=== PATIENT | female | born 1945 | race Caucasian/White ===

== ENCOUNTER 2018-04-13 01:19 | Inpatient (IN) | payer MEDICARE, OTHER ==
[2018-04-13] VITALS (17 sets, daily range): BP systolic 76–123; BP diastolic 49–78
[~2018-04-13] VITALS: Ht 165.1 cm; Wt 63.6 kg
[~2018-04-13 01:19] MED LIST: AMIT-189 PO; FENT-91 TD; GABA600T2 PO; HYDR-565 PO; LACT1CAP26 PO; LOSA1TAB39 PO; METO50TA17 PO; OMEP40CA37 PO; PARO20TA6 PO; RISP2TAB97 PO
[2018-04-13] MEDS ORDERED: piperacillin/tazo 3.375gm/50ml 50 ML IV ONE (01:25)
[2018-04-13] MEDS ORDERED: vancomycin/NS 1 GM ADD-VANTAGE 250 ML IV ONE (01:25)
[2018-04-13] MEDS ORDERED: normal saline 1000ML IV soln IV ONE (01:25)
[2018-04-13 01:41] LABS: ABG BASE EXCESS -13.3 mmol/L (-2.0-3.0); ABG HCO3 11.4 mmol/L (22.0-26.0); ABG OXYGEN SATURATION 96.6 % (95-98); ABG PCO2 (T) 24.1 mmHg (32.0-45.0); ABG PH (T) 7.296 (7.350-7.450); FCOHb 0.4 % (0.5-1.5); FLOW 4 L/min; FMetHb 0.3 % (0.3-1.12); FO2Hb 95.9 % (94-100); PATIENT TEMPERATURE 37.5; TOTAL HEMOGLOBIN 10.4 G/dl (12.0-16.0)
[2018-04-13 02:14] LABS: INR 1.3 INR; PARTIAL THROMBOPLASTIN TIME 38 SECONDS (22-32); PROTHROMBIN TIME 13.4 SECONDS (9.0-12.0)
[2018-04-13] MEDS ORDERED: morphine 4 MG/ML inj SYRINge IV ONE (02:15)
[2018-04-13] MEDS ORDERED: ondansetron/PF 4mg/2ml inj IV ONE (02:15)
[2018-04-13 02:17] LABS: ALANINE AMINOTRANSFERASE 8 U/L (12-78); ALBUMIN 1.7 G/DL (3.4-5.0); ALBUMIN/GLOBULIN RATIO 0.4 (1.1-1.5); ALKALINE PHOSPHATASE 73 IU/L (46-116); ANION GAP 13 (8-16); ASPARTATE AMINO TRANSFERASE 10 U/L (10-37); BILIRUBIN,TOTAL 0.1 MG/DL (0.1-1.0); BLOOD UREA NITROGEN 43 MG/DL (7-18); BUN/CREATININE RATIO 23.8 (6.6-38.0); CALCIUM 7.7 MG/DL (8.5-10.1); CHLORIDE 108 MMOL/L (99-107); CREATININE 1.81 MG/DL (0.40-0.90); GLUCOSE 105 MG/DL (70-104); MAGNESIUM 1.6 MG/DL (1.5-2.4); POTASSIUM 3.5 MMOL/L (3.5-5.1); SODIUM 136 MMOL/L (135-145); TOTAL PROTEIN 5.8 G/DL (6.4-8.2); eGFR 28 ML/MIN
[2018-04-13 02:18] LABS: BASOPHILS % (AUTO) 0 % (0-1); EOSINOPHILS % (AUTO) 0.2 % (0-6); HEMOGLOBIN 11.1 g/dl (12.0-16.0); LYMPHOCYTES # (AUTO) 0.9 X10'3 (1.1-4.8); LYMPHOCYTES % (AUTO) 8.1 % (21-51); MEAN CORPUSCULAR HEMOGLOBIN 29.9 PG (27.0-31.0); MEAN CORPUSCULAR HGB CONC 33.5 % (33.0-36.5); MEAN PLATELET VOLUME 6.5 FL (7.4-10.4); MONOCYTES # (AUTO) 0.3 X10'3 (0-0.9); MONOCYTES % (AUTO) 2.8 % (2-12); NEUTROPHILS # (AUTO) 9.3 X10'3 (1.8-7.7); NEUTROPHILS % (AUTO) 88.9 % (42-75); PLATELET COUNT 454 X10'3 (140-440); RED CELL DISTRIBUTION WIDTH 14.1 % (11.5-14.5); WHITE BLOOD COUNT 10.5 X10'3 (4.5-11.0)
[2018-04-13 02:23] LABS: TOTAL CARBON DIOXIDE 14.6 MMOL/L (24-32)
[2018-04-13 02:48] LABS: TOTAL CELLS COUNTED 100
[2018-04-13 02:50] LABS: PLATELET ESTIMATE NORMAL
[2018-04-13] MEDS ORDERED: etomidate 2mg/ml inj. IV ONE (02:55)
[2018-04-13] MEDS ORDERED: succinylcholine 20mg/ml inj IV ONE ×2 (02:55)
[2018-04-13] MEDS: FENTANYL-0.9 % NACL/PF 100 ML IV PRN ×3 (03:14→17:54)
[2018-04-13] MEDS ORDERED: VECuronium br 10mg inj. IV ONE ×2 (03:50→03:52)
[2018-04-13] MEDS ORDERED: midazolam 100mg in NS 100ml 100 ML IV PRN (03:50)
[2018-04-13] MEDS ORDERED: MIDAZolam 5mg/ml 2ml vial IV ONE ×2 (03:50)
[2018-04-13] MEDS ORDERED: normal saline 1000ML IV soln IVB ONE (04:20)
[2018-04-13] MEDS: NORepinephrine 8mg/ 250ml NS 250 ML IV SCH ×2 (04:25→17:45)
[2018-04-13] MEDS: midazolam 100mg in NS 100ml 100 ML IV PRN (04:35)
[2018-04-13 04:51] LABS: ABG BASE EXCESS -16.2 mmol/L (-2.0-3.0); ABG HCO3 10.3 mmol/L (22.0-26.0); ABG OXYGEN SATURATION 97.9 % (95-98); ABG PH (T) 7.211 (7.350-7.450); ABG PO2 (T) 168.7 mmHg (83-108); FCOHb 0.6 % (0.5-1.5); FMetHb 0.3 % (0.3-1.12); MINUTE VOLUME 7 L/min; PATIENT TEMPERATURE 36.5; PEEP 5 cm H2O; RESPIRATORY RATE 16 b/min; RESPIRATORY RATE (OBSERVED) 16 b/min; TIDAL VOLUME 400 mL
[2018-04-13 05:04] LABS: CLARITY,URINE CLEAR (Clear); COLOR,URINE YELLOW (Yellow); GLUCOSE, URINE NEGATIVE (Neg); KETONES,URINE NEGATIVE (Neg); LEUKOCYTE ESTERASE ,URINE NEGATIVE (Neg); NITRITES, URINE NEGATIVE (Neg); OCCULT BLOOD,URINE NEGATIVE (Neg); PROTEIN,URINE 30 mg/dl (Neg); UROBILINOGEN,URINE 0.2 E.U/dL (0.2-1.0)
[2018-04-13 05:05] LABS: UA COLLECTION TYPE FOLEY CATH
[2018-04-13 05:14] LABS: BACTERIA,URINE NONE SEEN /HPF (Neg); MUCUS STRANDS NONE SEEN /LPF (Neg); RBC,URINE NONE SEEN /HPF (0-2); SQUAMOUS EPITHELIAL CELL,UR NONE SEEN /LPF (FEW); WBC,URINE NONE SEEN /HPF (0-4)
[2018-04-13] MEDS ORDERED: K, MAG and/or Phos replacement - Verify level? MC PRN (05:40)
[2018-04-13] MEDS ORDERED: morphine 4 MG/ML inj SYRINge IV PRN ×2 (05:40)
[2018-04-13] MEDS ORDERED: acetaminophen 650mg rectal suppository RC PRN (05:40)
[2018-04-13] MEDS ORDERED: morphine/NS 5 mg/ml CADD 50 ML IV SCH (05:56)
[2018-04-13] MEDS ORDERED: etomidate 2mg/ml inj. ONE (06:00)
[2018-04-13] MEDS ORDERED: NORepinephrine bitartrate 8 MG in NS 250 ML BAG (32 mcg/ml) IV ONE (06:00)
[2018-04-13] MEDS ORDERED: FENTANYL-0.9 % NACL/PF 100 ML IV PRN (06:45)
[2018-04-13] MEDS: normal saline 1000ml 1,000 ML IV SCH ×3 (07:56→19:28)
[2018-04-13] MEDS ORDERED: HYDR-565 PO (09:37)
[2018-04-13] MEDS ORDERED: ONDA4TAB12 PO (09:37)
[2018-04-13] MEDS ORDERED: METO50TA17 PO (09:37)
[2018-04-13] MEDS ORDERED: LOSA1TAB39 PO (09:37)
[2018-04-13] MEDS: piperacillin/tazo 3.375gm/50ml 50 ML IV SCH ×3 (10:36→20:00)
[2018-04-13] MEDS: heparin, porcine 5000 units/ml vial SQ SCH ×2 (10:37→20:00)
[2018-04-13 19:15] LABS: PO2 MIXED VENOUS (TEMP COR) 54.4 mmHg (35-46)
[2018-04-13] MEDS: lactobacillus rhamnosus 10,000 MMU CELLS/CAPSULE PO SCH (20:00)
[2018-04-14] VITALS (24 sets, daily range): BP systolic 62–156; BP diastolic 41–92
[2018-04-14] MEDS ORDERED: vancomycin/NS 1 GM ADD-VANTAGE 250 ML IV SCH (02:00)
[2018-04-14] MEDS: piperacillin/tazo 3.375gm/50ml 50 ML IV SCH ×2 (02:04→07:15)
[2018-04-14] MEDS: normal saline 1000ml 1,000 ML IV SCH ×2 (02:05→08:48)
[2018-04-14 02:49] LABS: BASOPHILS % (AUTO) 0.1 % (0-1); EOSINOPHILS # (AUTO) 0.2 X10'3 (0-0.9); HEMATOCRIT 29.5 % (35.0-45.0); HEMOGLOBIN 9.9 g/dl (12.0-16.0); LYMPHOCYTES % (AUTO) 6.7 % (21-51); MEAN CORPUSCULAR HEMOGLOBIN 29.8 PG (27.0-31.0); MEAN CORPUSCULAR HGB CONC 33.7 % (33.0-36.5); MEAN CORPUSCULAR VOLUME 88.5 FL (78-98); MEAN PLATELET VOLUME 6.3 FL (7.4-10.4); MONOCYTES # (AUTO) 0.4 X10'3 (0-0.9); MONOCYTES % (AUTO) 2.8 % (2-12); NEUTROPHILS # (AUTO) 13.5 X10'3 (1.8-7.7); NEUTROPHILS % (AUTO) 89.4 % (42-75); PLATELET COUNT 349 X10'3 (140-440); RED BLOOD COUNT 3.33 X10'6 (4.20-5.60); RED CELL DISTRIBUTION WIDTH 14.5 % (11.5-14.5); WHITE BLOOD COUNT 15.1 X10'3 (4.5-11.0)
[2018-04-14 03:01] LABS: INR 1.4 INR; PARTIAL THROMBOPLASTIN TIME 42 SECONDS (22-32); PROTHROMBIN TIME 13.9 SECONDS (9.0-12.0)
[2018-04-14 03:38] LABS: ALBUMIN 1.2 G/DL (3.4-5.0); ALBUMIN/GLOBULIN RATIO 0.4 (1.1-1.5); ANION GAP 17 (8-16); ASPARTATE AMINO TRANSFERASE 7 U/L (10-37); BILIRUBIN,TOTAL 0.2 MG/DL (0.1-1.0); BLOOD UREA NITROGEN 27 MG/DL (7-18); BUN/CREATININE RATIO 21.6 (6.6-38.0); CALCIUM 7.2 MG/DL (8.5-10.1); CREATININE 1.25 MG/DL (0.40-0.90); GLUCOSE 87 MG/DL (70-104); MAGNESIUM 1.2 MG/DL (1.5-2.4); PHOSPHORUS 2.9 MG/DL (2.3-4.5); TOTAL PROTEIN 4.6 G/DL (6.4-8.2); eGFR 42 ML/MIN
[2018-04-14 03:43] LABS: SODIUM 145 MMOL/L (135-145)
[2018-04-14 03:44] LABS: CHLORIDE 118 MMOL/L (99-107); POTASSIUM 2.7 MMOL/L (3.5-5.1)
[2018-04-14 03:45] LABS: ALKALINE PHOSPHATASE 64 IU/L (46-116)
[2018-04-14 03:52] LABS: ALANINE AMINOTRANSFERASE < 6 U/L (12-78)
[2018-04-14] MEDS ORDERED: magnesium 2GM in 50ml NS 50 ML IV PRN (04:00)
[2018-04-14] MEDS ORDERED: magnesium 4gm in 100ml NS 100 ML IV PRN (04:00)
[2018-04-14] MEDS ORDERED: potassium Cl 40MEQ/250ML bag 250 ML IV ONE (04:03)
[2018-04-14] MEDS: potassium Cl 40MEQ/250ML bag 250 ML IV PRN (04:12)
[2018-04-14 05:25] LABS: ABG HCO3 9.1 mmol/L (22.0-26.0); ABG OXYGEN SATURATION 97.7 % (95-98); ABG PH (T) 7.273 (7.350-7.450); ABG PO2 (T) 131.3 mmHg (83-108); FCOHb 0.3 % (0.5-1.5); FMetHb 0.3 % (0.3-1.12); FO2Hb 97.1 % (94-100); MINUTE VOLUME 8 L/min; PATIENT TEMPERATURE 36.5; PEEP 5 cm H2O; RESPIRATORY RATE 16 b/min; RESPIRATORY RATE (OBSERVED) 22 b/min; TIDAL VOLUME 400 mL; TOTAL HEMOGLOBIN 10.4 G/dl (12.0-16.0)
[2018-04-14 05:30] LABS: PLATELET ESTIMATE NORMAL; TOTAL CELLS COUNTED 100; TOXIC GRANULATION 1+
[2018-04-14] MEDS: mineral oil/petrolatum ophthal oint EACHEYE SCH ×3 (07:15→20:41)
[2018-04-14] MEDS: lactobacillus rhamnosus 10,000 MMU CELLS/CAPSULE PO SCH ×2 (07:15→20:41)
[2018-04-14] MEDS: heparin, porcine 5000 units/ml vial SQ SCH ×2 (07:15→20:41)
[2018-04-14] MEDS: potassium Cl 40MEQ/250ML bag 250 ML IV SCH (07:16)
[2018-04-14] MEDS: NORepinephrine 8mg/ 250ml NS 250 ML IV SCH ×2 (07:34→16:02)
[2018-04-14 08:50] LABS: GIARDIA LAMBLIA AG NEGATIVE (Neg)
[2018-04-14 08:51] LABS: CRYPTOSPORIDIUM AG NEGATIVE (Neg)
[2018-04-14 10:20] LABS: C DIFF SPECIMEN=DIARRHEA? ACCEPTABLE; C DIFFICILE TOXINS A&B NEGATIVE (Neg)
[2018-04-14 10:21] LABS: C DIFF ANTIGEN POSITIVE (NEGATIVE)
[2018-04-14 10:25] LABS: C DIFF TOXIN (LAMP) POSITIVE (NEG)
[2018-04-14] MEDS: midazolam 100mg in NS 100ml 100 ML IV PRN (12:30)
[2018-04-14] MEDS: FENTANYL-0.9 % NACL/PF 100 ML IV PRN (12:31)
[2018-04-14] MEDS: sodium bicarbonate (8.4%) inj. 150 MEQ in dextrose 5%-water 1,000 ML IV SCH ×2 (12:31→20:42)
[2018-04-14 12:41] LABS: POTASSIUM 3.8 MMOL/L (3.5-5.1)
[2018-04-14 14:25] LABS: PREALBUMIN 5.6 MG/DL (19-36)
[2018-04-14] MEDS ORDERED: vancomycin 125mg/5ml ORAL solution 5ml UD bottle PO ONE (14:30)
[2018-04-14] MEDS ORDERED: GABA600T2 (16:20)
[2018-04-14] MEDS ORDERED: QUET25TA34 PO (16:20)
[2018-04-14] MEDS: vancomycin 125mg/5ml ORAL solution 5ml UD bottle PO SCH (20:58)
[2018-04-15] VITALS (24 sets, daily range): BP systolic 82–134; BP diastolic 56–95
[2018-04-15] MEDS: mineral oil/petrolatum ophthal oint EACHEYE SCH ×4 (02:50→22:35)
[2018-04-15] MEDS: vancomycin 125mg/5ml ORAL solution 5ml UD bottle PO SCH ×4 (02:50→22:35)
[2018-04-15 03:25] LABS: ABG BASE EXCESS -6.3 mmol/L (-2.0-3.0); ABG HCO3 16.1 mmol/L (22.0-26.0); ABG OXYGEN SATURATION 96.9 % (95-98); ABG PCO2 (T) 22.8 mmHg (32.0-45.0); ABG PH (T) 7.467 (7.350-7.450); ABG PO2 (T) 105.3 mmHg (83-108); ALLEN'S TEST Positive; FCOHb 0.3 % (0.5-1.5); FMetHb 0.3 % (0.3-1.12); FO2Hb 96.3 % (94-100); MINUTE VOLUME 10 L/min; PATIENT TEMPERATURE 36.9; PEEP 5 cm H2O; RESPIRATORY RATE 20 b/min; RESPIRATORY RATE (OBSERVED) 22 b/min; TIDAL VOLUME 400 mL; TOTAL HEMOGLOBIN 9.6 G/dl (12.0-16.0)
[2018-04-15 03:26] LABS: BASOPHILS % (AUTO) 0.2 % (0-1); EOSINOPHILS # (AUTO) 0.3 X10'3 (0-0.9); EOSINOPHILS % (AUTO) 2.5 % (0-6); HEMOGLOBIN 9.1 g/dl (12.0-16.0); LYMPHOCYTES # (AUTO) 1.5 X10'3 (1.1-4.8); LYMPHOCYTES % (AUTO) 14.1 % (21-51); MEAN CORPUSCULAR HEMOGLOBIN 29.6 PG (27.0-31.0); MEAN CORPUSCULAR HGB CONC 33.8 % (33.0-36.5); MEAN CORPUSCULAR VOLUME 87.6 FL (78-98); MEAN PLATELET VOLUME 6.5 FL (7.4-10.4); MONOCYTES # (AUTO) 0.3 X10'3 (0-0.9); MONOCYTES % (AUTO) 2.7 % (2-12); NEUTROPHILS # (AUTO) 8.8 X10'3 (1.8-7.7); NEUTROPHILS % (AUTO) 80.5 % (42-75); PLATELET COUNT 267 X10'3 (140-440); RED BLOOD COUNT 3.08 X10'6 (4.20-5.60); RED CELL DISTRIBUTION WIDTH 14.3 % (11.5-14.5); WHITE BLOOD COUNT 10.9 X10'3 (4.5-11.0)
[2018-04-15 03:32] LABS: INR 1.3 INR; PARTIAL THROMBOPLASTIN TIME 39 SECONDS (22-32); PROTHROMBIN TIME 13.5 SECONDS (9.0-12.0)
[2018-04-15 03:41] LABS: ALBUMIN/GLOBULIN RATIO 0.3 (1.1-1.5); ALKALINE PHOSPHATASE 60 IU/L (46-116); ANION GAP 11 (8-16); ASPARTATE AMINO TRANSFERASE 6 U/L (10-37); BILIRUBIN,TOTAL 0.2 MG/DL (0.1-1.0); BLOOD UREA NITROGEN 21 MG/DL (7-18); BUN/CREATININE RATIO 18.1 (6.6-38.0); CALCIUM 7.4 MG/DL (8.5-10.1); CHLORIDE 116 MMOL/L (99-107); CREATININE 1.16 MG/DL (0.40-0.90); GLUCOSE 149 MG/DL (70-104); MAGNESIUM 2.5 MG/DL (1.5-2.4); PHOSPHORUS 1.6 MG/DL (2.3-4.5); SODIUM 144 MMOL/L (135-145); TOTAL CARBON DIOXIDE 17.2 MMOL/L (24-32); TOTAL PROTEIN 4.2 G/DL (6.4-8.2); eGFR 46 ML/MIN
[2018-04-15 03:45] LABS: POTASSIUM 2.6 MMOL/L (3.5-5.1)
[2018-04-15 03:46] LABS: ALANINE AMINOTRANSFERASE < 6 U/L (12-78)
[2018-04-15] MEDS ORDERED: potassium Cl 40MEQ/250ML bag 250 ML IV ONE (03:50)
[2018-04-15 04:12] LABS: TOTAL CELLS COUNTED 100
[2018-04-15 04:13] LABS: PLATELET ESTIMATE NORMAL; TOXIC GRANULATION 2+
[2018-04-15] MEDS: sodium bicarbonate (8.4%) inj. 150 MEQ in dextrose 5%-water 1,000 ML IV SCH ×4 (04:20→21:23)
[2018-04-15] MEDS: potassium Cl 40MEQ/250ML bag 250 ML IV PRN ×3 (04:20→11:29)
[2018-04-15] MEDS ORDERED: sodium phosphate inj. 30 MMOL in dextrose 5%-water 250 ML IV PRN (05:34)
[2018-04-15] MEDS ORDERED: Neutra Phos packet PO PRN (05:35)
[2018-04-15] MEDS: FENTANYL-0.9 % NACL/PF 100 ML IV PRN ×2 (06:07→16:10)
[2018-04-15] MEDS: lactobacillus rhamnosus 10,000 MMU CELLS/CAPSULE PO SCH ×2 (07:29→22:35)
[2018-04-15] MEDS: heparin, porcine 5000 units/ml vial SQ SCH ×2 (07:30→22:35)
[2018-04-15] MEDS: NORepinephrine 8mg/ 250ml NS 250 ML IV SCH (11:35)
[2018-04-15] MEDS: sodium phosphate inj. 15 MMOL in dextrose 5%-water 150 ML IV PRN (16:10)
[2018-04-15] MEDS: midazolam 100mg in NS 100ml 100 ML IV PRN (16:11)
[2018-04-16] VITALS (24 sets, daily range): BP systolic 84–158; BP diastolic 54–88
[2018-04-16] MEDS ORDERED: acetaminophen 325mg/10.15ml oral unit dose solution PO PRN (00:50)
[2018-04-16] MEDS: FENTANYL-0.9 % NACL/PF 100 ML IV PRN ×3 (01:15→17:52)
[2018-04-16] MEDS ORDERED: VANCOMYCIN LEVEL IV ONE (01:30)
[2018-04-16] MEDS: mineral oil/petrolatum ophthal oint EACHEYE SCH ×4 (02:42→20:33)
[2018-04-16] MEDS: vancomycin 125mg/5ml ORAL solution 5ml UD bottle PO SCH ×4 (02:46→20:34)
[2018-04-16 03:03] LABS: INR 1.1 INR; PARTIAL THROMBOPLASTIN TIME 32 SECONDS (22-32); PROTHROMBIN TIME 10.9 SECONDS (9.0-12.0)
[2018-04-16 03:18] LABS: ALBUMIN/GLOBULIN RATIO 0.3 (1.1-1.5); ALKALINE PHOSPHATASE 49 IU/L (46-116); ANION GAP 5 (8-16); ASPARTATE AMINO TRANSFERASE 7 U/L (10-37); BILIRUBIN,TOTAL 0.2 MG/DL (0.1-1.0); BLOOD UREA NITROGEN 16 MG/DL (7-18); BUN/CREATININE RATIO 18.6 (6.6-38.0); CALCIUM 6.9 MG/DL (8.5-10.1); CHLORIDE 111 MMOL/L (99-107); CREATININE 0.86 MG/DL (0.40-0.90); GLUCOSE 153 MG/DL (70-104); MAGNESIUM 1.7 MG/DL (1.5-2.4); POTASSIUM 3.4 MMOL/L (3.5-5.1); SODIUM 142 MMOL/L (135-145); TOTAL CARBON DIOXIDE 25.6 MMOL/L (24-32); TOTAL PROTEIN 4.2 G/DL (6.4-8.2); eGFR 65 ML/MIN
[2018-04-16 03:25] LABS: ALANINE AMINOTRANSFERASE < 6 U/L (12-78)
[2018-04-16 03:28] LABS: PHOSPHORUS 1.1 MG/DL (2.3-4.5)
[2018-04-16 03:43] LABS: BASOPHILS % (AUTO) 0.3 % (0-1); EOSINOPHILS # (AUTO) 0.2 X10'3 (0-0.9); EOSINOPHILS % (AUTO) 1.8 % (0-6); HEMATOCRIT 25.3 % (35.0-45.0); HEMOGLOBIN 8.6 g/dl (12.0-16.0); LYMPHOCYTES # (AUTO) 2.4 X10'3 (1.1-4.8); LYMPHOCYTES % (AUTO) 22.9 % (21-51); MEAN CORPUSCULAR HEMOGLOBIN 29.6 PG (27.0-31.0); MEAN CORPUSCULAR VOLUME 87.1 FL (78-98); MEAN PLATELET VOLUME 7.2 FL (7.4-10.4); MONOCYTES # (AUTO) 0.6 X10'3 (0-0.9); NEUTROPHILS # (AUTO) 7.3 X10'3 (1.8-7.7); PLATELET COUNT 240 X10'3 (140-440); RED BLOOD COUNT 2.91 X10'6 (4.20-5.60); RED CELL DISTRIBUTION WIDTH 14.4 % (11.5-14.5); WHITE BLOOD COUNT 10.5 X10'3 (4.5-11.0)
[2018-04-16 03:51] LABS: ABG BASE EXCESS 1.9 mmol/L (-2.0-3.0); ABG HCO3 24.8 mmol/L (22.0-26.0); ABG PCO2 (T) 32.9 mmHg (32.0-45.0); ABG PH (T) 7.496 (7.350-7.450); ABG PO2 (T) 83.9 mmHg (83-108); ALLEN'S TEST Positive; FCOHb 0.5 % (0.5-1.5); FMetHb 0.3 % (0.3-1.12); FO2Hb 95.2 % (94-100); MINUTE VOLUME 7 L/min; PATIENT TEMPERATURE 37.3; PEEP 5 cm H2O; RESPIRATORY RATE 16 b/min; RESPIRATORY RATE (OBSERVED) 16 b/min; TIDAL VOLUME 400 mL; TOTAL HEMOGLOBIN 10.1 G/dl (12.0-16.0)
[2018-04-16] MEDS ORDERED: SODIUM PHOSPHATE IN D5W 250 ML IV ONE (04:14)
[2018-04-16 07:21] LABS: PLATELET ESTIMATE NORMAL; POLYCHROMASIA 1+; TOTAL CELLS COUNTED 100
[2018-04-16 07:22] LABS: TARGET CELLS 1+; TOXIC GRANULATION 2+
[2018-04-16] MEDS: heparin, porcine 5000 units/ml vial SQ SCH ×2 (08:43→20:34)
[2018-04-16] MEDS: lactobacillus rhamnosus 10,000 MMU CELLS/CAPSULE PO SCH ×2 (08:43→20:33)
[2018-04-16] MEDS: potassium Cl 40MEQ/250ML bag 250 ML IV SCH (08:44)
[2018-04-16] MEDS: sodium bicarbonate (8.4%) inj. 150 MEQ in dextrose 5%-water 1,000 ML IV SCH ×2 (08:45→16:46)
[2018-04-16] MEDS: NORepinephrine 8mg/ 250ml NS 250 ML IV SCH (11:59)
[2018-04-17] VITALS (23 sets, daily range): BP systolic 79–143; BP diastolic 52–101
[2018-04-17] MEDS: sodium bicarbonate (8.4%) inj. 150 MEQ in dextrose 5%-water 1,000 ML IV SCH (00:26)
[2018-04-17 03:06] LABS: ABG BASE EXCESS 2.1 mmol/L (-2.0-3.0); ABG HCO3 24.3 mmol/L (22.0-26.0); ABG PCO2 (T) 29.4 mmHg (32.0-45.0); ABG PH (T) 7.536 (7.350-7.450); ABG PO2 (T) 80.2 mmHg (83-108); ALLEN'S TEST Positive; FCOHb 0.6 % (0.5-1.5); FMetHb 0.3 % (0.3-1.12); FO2Hb 95.1 % (94-100); MINUTE VOLUME 8 L/min; PATIENT TEMPERATURE 37.4; PEEP 5 cm H2O; RESPIRATORY RATE 12 b/min; RESPIRATORY RATE (OBSERVED) 17 b/min; TIDAL VOLUME 400 mL; TOTAL HEMOGLOBIN 9.4 G/dl (12.0-16.0)
[2018-04-17 03:19] LABS: BASOPHILS % (AUTO) 0.2 % (0-1); EOSINOPHILS # (AUTO) 0.3 X10'3 (0-0.9); EOSINOPHILS % (AUTO) 2.5 % (0-6); HEMATOCRIT 26.2 % (35.0-45.0); HEMOGLOBIN 8.8 g/dl (12.0-16.0); LYMPHOCYTES # (AUTO) 2.8 X10'3 (1.1-4.8); LYMPHOCYTES % (AUTO) 24.6 % (21-51); MEAN CORPUSCULAR HEMOGLOBIN 29.3 PG (27.0-31.0); MEAN CORPUSCULAR HGB CONC 33.7 % (33.0-36.5); MEAN CORPUSCULAR VOLUME 86.9 FL (78-98); MEAN PLATELET VOLUME 6.8 FL (7.4-10.4); MONOCYTES # (AUTO) 0.5 X10'3 (0-0.9); MONOCYTES % (AUTO) 4.7 % (2-12); NEUTROPHILS # (AUTO) 7.8 X10'3 (1.8-7.7); PLATELET COUNT 242 X10'3 (140-440); RED BLOOD COUNT 3.01 X10'6 (4.20-5.60); RED CELL DISTRIBUTION WIDTH 14.8 % (11.5-14.5); WHITE BLOOD COUNT 11.5 X10'3 (4.5-11.0)
[2018-04-17] MEDS: midazolam 100mg in NS 100ml 100 ML IV PRN (03:19)
[2018-04-17] MEDS: mineral oil/petrolatum ophthal oint EACHEYE SCH ×4 (03:19→20:00)
[2018-04-17] MEDS: vancomycin 125mg/5ml ORAL solution 5ml UD bottle PO SCH ×4 (03:19→20:00)
[2018-04-17 03:31] LABS: PARTIAL THROMBOPLASTIN TIME 30 SECONDS (22-32); PROTHROMBIN TIME 10.3 SECONDS (9.0-12.0)
[2018-04-17 03:33] LABS: ALBUMIN/GLOBULIN RATIO 0.3 (1.1-1.5); ALKALINE PHOSPHATASE 52 IU/L (46-116); ANION GAP 4 (8-16); ASPARTATE AMINO TRANSFERASE 7 U/L (10-37); BILIRUBIN,TOTAL 0.2 MG/DL (0.1-1.0); BLOOD UREA NITROGEN 15 MG/DL (7-18); BUN/CREATININE RATIO 21.4 (6.6-38.0); CALCIUM 7.4 MG/DL (8.5-10.1); CHLORIDE 109 MMOL/L (99-107); GLUCOSE 86 MG/DL (70-104); MAGNESIUM 1.5 MG/DL (1.5-2.4); PHOSPHORUS 2.1 MG/DL (2.3-4.5); POTASSIUM 3.9 MMOL/L (3.5-5.1); SODIUM 139 MMOL/L (135-145); TOTAL CARBON DIOXIDE 26.4 MMOL/L (24-32); TOTAL PROTEIN 4.7 G/DL (6.4-8.2); eGFR 82 ML/MIN
[2018-04-17 03:34] LABS: ALANINE AMINOTRANSFERASE < 6 U/L (12-78)
[2018-04-17] MEDS ORDERED: sodium phosphate in D5W IVPB 250 ML IV ONE (04:46)
[2018-04-17] MEDS: sodium phosphate inj. 15 MMOL in dextrose 5%-water 150 ML IV PRN (05:35)
[2018-04-17] MEDS: FENTANYL-0.9 % NACL/PF 100 ML IV PRN ×3 (07:24→20:32)
[2018-04-17] MEDS: heparin, porcine 5000 units/ml vial SQ SCH ×2 (07:25→20:00)
[2018-04-17] MEDS: lactobacillus rhamnosus 10,000 MMU CELLS/CAPSULE PO SCH ×2 (07:25→20:00)
[2018-04-17] MEDS ORDERED: dextrose 50%-water 50ml dispensing syringe IV ONE (07:33)
[2018-04-17] MEDS ORDERED: dextrose 50%-water 50ml dispensing syringe IV PRN ×2 (07:50)
[2018-04-17] MEDS ORDERED: insulin Lispro (HumaLOG) vial - multi-dose SQ SCH (07:50)
[2018-04-17] MEDS ORDERED: MESSAGE TO PHARMACY PO ONE (07:50)
[2018-04-17] MEDS ORDERED: dextrose ORAL solution 15 GM/59 ML bottle PO PRN ×2 (07:50)
[2018-04-17] MEDS ORDERED: glucagon, human recombinant 1mg kit SUBCUT PRN (07:50)
[2018-04-17] MEDS ORDERED: dextrose 5%-1/4 normal saline 1,000 ML IV SCH (15:25)
[2018-04-17] MEDS ORDERED: acetaminophen 325mg/10.15ml oral unit dose solution PO PRN (15:25)
[2018-04-17] MEDS: dextrose 5%-1/2 normal saline 1,000 ML IV SCH (16:56)
[2018-04-17] MEDS ORDERED: normal saline 500ml IV soln 1,000 ML IV ONE (18:00)
[2018-04-17] MEDS: insulin glargine (Lantus) pen - multi-dose SQ SCH (21:00)
[2018-04-18] VITALS (23 sets, daily range): BP systolic 86–145; BP diastolic 49–89
[2018-04-18] MEDS: FENTANYL-0.9 % NACL/PF 100 ML IV PRN ×2 (01:35→10:56)
[2018-04-18] MEDS: vancomycin 125mg/5ml ORAL solution 5ml UD bottle PO SCH ×4 (01:35→19:56)
[2018-04-18] MEDS: midazolam 100mg in NS 100ml 100 ML IV PRN (01:36)
[2018-04-18] MEDS: NORepinephrine 8mg/ 250ml NS 250 ML IV SCH (01:36)
[2018-04-18] MEDS: mineral oil/petrolatum ophthal oint EACHEYE SCH ×4 (01:37→19:59)
[2018-04-18 02:36] LABS: BASOPHILS % (AUTO) 0.5 % (0-1); EOSINOPHILS # (AUTO) 0.3 X10'3 (0-0.9); EOSINOPHILS % (AUTO) 2.6 % (0-6); HEMATOCRIT 23.6 % (35.0-45.0); LYMPHOCYTES # (AUTO) 3.4 X10'3 (1.1-4.8); MEAN CORPUSCULAR HEMOGLOBIN 29.6 PG (27.0-31.0); MEAN CORPUSCULAR HGB CONC 33.9 % (33.0-36.5); MEAN CORPUSCULAR VOLUME 87.6 FL (78-98); MEAN PLATELET VOLUME 7.5 FL (7.4-10.4); MONOCYTES # (AUTO) 0.8 X10'3 (0-0.9); MONOCYTES % (AUTO) 7.6 % (2-12); NEUTROPHILS # (AUTO) 5.5 X10'3 (1.8-7.7); NEUTROPHILS % (AUTO) 55.3 % (42-75); PLATELET COUNT 276 X10'3 (140-440); RED BLOOD COUNT 2.69 X10'6 (4.20-5.60); RED CELL DISTRIBUTION WIDTH 14.5 % (11.5-14.5)
[2018-04-18 02:49] LABS: PARTIAL THROMBOPLASTIN TIME 31 SECONDS (22-32); PROTHROMBIN TIME 10.1 SECONDS (9.0-12.0)
[2018-04-18 02:54] LABS: ALANINE AMINOTRANSFERASE 7 U/L (12-78); ALBUMIN/GLOBULIN RATIO 0.3 (1.1-1.5); ALKALINE PHOSPHATASE 52 IU/L (46-116); ANION GAP 6 (8-16); ASPARTATE AMINO TRANSFERASE 9 U/L (10-37); BILIRUBIN,TOTAL 0.1 MG/DL (0.1-1.0); BLOOD UREA NITROGEN 14 MG/DL (7-18); BUN/CREATININE RATIO 19.7 (6.6-38.0); CALCIUM 7.5 MG/DL (8.5-10.1); CHLORIDE 108 MMOL/L (99-107); CREATININE 0.71 MG/DL (0.40-0.90); GLUCOSE 156 MG/DL (70-104); MAGNESIUM 1.3 MG/DL (1.5-2.4); PHOSPHORUS 2.4 MG/DL (2.3-4.5); POTASSIUM 3.8 MMOL/L (3.5-5.1); SODIUM 141 MMOL/L (135-145); TOTAL CARBON DIOXIDE 26.9 MMOL/L (24-32); TOTAL PROTEIN 4.7 G/DL (6.4-8.2); eGFR 81 ML/MIN
[2018-04-18 03:26] LABS: ABG BASE EXCESS 1.2 mmol/L (-2.0-3.0); ABG HCO3 23.7 mmol/L (22.0-26.0); ABG OXYGEN SATURATION 96.9 % (95-98); ABG PCO2 (T) 28.8 mmHg (32.0-45.0); ABG PH (T) 7.531 (7.350-7.450); ABG PO2 (T) 93.8 mmHg (83-108); ALLEN'S TEST Positive; FCOHb 0.7 % (0.5-1.5); FMetHb 0.3 % (0.3-1.12); FO2Hb 95.9 % (94-100); MINUTE VOLUME 7 L/min; PATIENT TEMPERATURE 36.4; PEEP 5 cm H2O; RESPIRATORY RATE 12 b/min; RESPIRATORY RATE (OBSERVED) 20 b/min; TIDAL VOLUME 400 mL; TOTAL HEMOGLOBIN 8.2 G/dl (12.0-16.0)
[2018-04-18 03:40] LABS: PREALBUMIN 10.1 MG/DL (19-36)
[2018-04-18 06:39] LABS: HEMOGLOBIN A1C 5.2 % (4.5-6.2)
[2018-04-18] MEDS: dextrose 5%-1/2 normal saline 1,000 ML IV SCH ×2 (07:50→19:56)
[2018-04-18] MEDS: heparin, porcine 5000 units/ml vial SQ SCH ×2 (07:57→19:56)
[2018-04-18] MEDS: lactobacillus rhamnosus 10,000 MMU CELLS/CAPSULE PO SCH ×2 (07:57→19:56)
[2018-04-18] MEDS ORDERED: magnesium Cl slow-release 64mg tablet PO PRN (09:35)
[2018-04-18] MEDS ORDERED: potassium Cl 20 mEq SR tablet PO PRN ×2 (09:35)
[2018-04-18] MEDS: dexmedetomidin/NS 400mcg/100ml 100 ML IV SCH ×2 (10:24→23:59)
[2018-04-18] MEDS: gabapentin 400mg capsule PO SCH ×3 (12:07→23:59)
[2018-04-18] MEDS ORDERED: magnesium 2GM in 50ml NS 50 ML IV PRN (15:15)
[2018-04-18] MEDS ORDERED: magnesium 4gm in 100ml NS 100 ML IV PRN (15:15)
[2018-04-18] MEDS: insulin glargine (Lantus) pen - multi-dose SQ SCH (21:00)
[2018-04-19] VITALS (26 sets, daily range): BP systolic 81–189; BP diastolic 51–108
[2018-04-19] MEDS: FENTANYL-0.9 % NACL/PF 100 ML IV PRN ×3 (00:14→20:29)
[2018-04-19] MEDS: vancomycin 125mg/5ml ORAL solution 5ml UD bottle PO SCH ×4 (02:12→19:10)
[2018-04-19] MEDS: mineral oil/petrolatum ophthal oint EACHEYE SCH ×4 (02:12→19:09)
[2018-04-19 02:41] LABS: BASOPHILS % (AUTO) 0.4 % (0-1); EOSINOPHILS # (AUTO) 0.2 X10'3 (0-0.9); EOSINOPHILS % (AUTO) 2.2 % (0-6); HEMATOCRIT 22.9 % (35.0-45.0); HEMOGLOBIN 7.7 g/dl (12.0-16.0); LYMPHOCYTES # (AUTO) 2.9 X10'3 (1.1-4.8); LYMPHOCYTES % (AUTO) 31.6 % (21-51); MEAN CORPUSCULAR HEMOGLOBIN 29.5 PG (27.0-31.0); MEAN CORPUSCULAR HGB CONC 33.3 % (33.0-36.5); MEAN CORPUSCULAR VOLUME 88.6 FL (78-98); MEAN PLATELET VOLUME 7.2 FL (7.4-10.4); MONOCYTES # (AUTO) 0.6 X10'3 (0-0.9); MONOCYTES % (AUTO) 6.1 % (2-12); NEUTROPHILS # (AUTO) 5.4 X10'3 (1.8-7.7); NEUTROPHILS % (AUTO) 59.7 % (42-75); PLATELET COUNT 325 X10'3 (140-440); RED BLOOD COUNT 2.59 X10'6 (4.20-5.60); RED CELL DISTRIBUTION WIDTH 14.7 % (11.5-14.5); WHITE BLOOD COUNT 9.1 X10'3 (4.5-11.0)
[2018-04-19 02:51] LABS: PARTIAL THROMBOPLASTIN TIME 29 SECONDS (22-32); PROTHROMBIN TIME 9.9 SECONDS (9.0-12.0)
[2018-04-19 02:57] LABS: ALANINE AMINOTRANSFERASE 9 U/L (12-78); ALBUMIN 1.1 G/DL (3.4-5.0); ALBUMIN/GLOBULIN RATIO 0.3 (1.1-1.5); ALKALINE PHOSPHATASE 57 IU/L (46-116); ANION GAP 7 (8-16); ASPARTATE AMINO TRANSFERASE 14 U/L (10-37); BILIRUBIN,TOTAL 0.1 MG/DL (0.1-1.0); BLOOD UREA NITROGEN 15 MG/DL (7-18); BUN/CREATININE RATIO 20.3 (6.6-38.0); CALCIUM 7.8 MG/DL (8.5-10.1); CHLORIDE 110 MMOL/L (99-107); CREATININE 0.74 MG/DL (0.40-0.90); GLUCOSE 113 MG/DL (70-104); MAGNESIUM 2.1 MG/DL (1.5-2.4); PHOSPHORUS 2.6 MG/DL (2.3-4.5); POTASSIUM 3.6 MMOL/L (3.5-5.1); SODIUM 143 MMOL/L (135-145); TOTAL CARBON DIOXIDE 25.6 MMOL/L (24-32); TOTAL PROTEIN 4.9 G/DL (6.4-8.2); eGFR 77 ML/MIN
[2018-04-19] MEDS: NORepinephrine 8mg/ 250ml NS 250 ML IV SCH (03:32)
[2018-04-19 03:40] LABS: ABG BASE EXCESS 1.2 mmol/L (-2.0-3.0); ABG HCO3 22.8 mmol/L (22.0-26.0); ABG OXYGEN SATURATION 96.1 % (95-98); ABG PCO2 (T) 24.9 mmHg (32.0-45.0); ABG PH (T) 7.577 (7.350-7.450); ABG PO2 (T) 76.1 mmHg (83-108); ALLEN'S TEST Positive; FCOHb 0.6 % (0.5-1.5); FMetHb 0.2 % (0.3-1.12); FO2Hb 95.3 % (94-100); MINUTE VOLUME 12 L/min; PATIENT TEMPERATURE 36.3; PEEP 5 cm H2O; RESPIRATORY RATE 12 b/min; RESPIRATORY RATE (OBSERVED) 33 b/min; TIDAL VOLUME 400 mL; TOTAL HEMOGLOBIN 8.7 G/dl (12.0-16.0)
[2018-04-19] MEDS: gabapentin 400mg capsule PO SCH ×2 (07:31→16:26)
[2018-04-19] MEDS: heparin, porcine 5000 units/ml vial SQ SCH ×2 (07:31→19:10)
[2018-04-19] MEDS: lactobacillus rhamnosus 10,000 MMU CELLS/CAPSULE PO SCH ×2 (07:31→19:10)
[2018-04-19] MEDS: K and/or MAG REPLACEMENT MC SCH (08:00)
[2018-04-19] MEDS ORDERED: K and/or MAG REPLACEMENT MC SCH (08:00)
[2018-04-19] MEDS: dextrose 5%-1/2 normal saline 1,000 ML IV SCH ×2 (12:00→22:13)
[2018-04-19] MEDS ORDERED: racepinephrine 11.25mg/0.5ml nebule IH PRN (14:00)
[2018-04-19] MEDS: dexmedetomidin/NS 400mcg/100ml 100 ML IV SCH (14:54)
[2018-04-19] MEDS: dexamethasone 4mg/ml inj IM SCH ×2 (16:26→19:09)
[2018-04-19] MEDS: ondansetron/PF 4mg/2ml inj IV PRN (19:07)
[2018-04-19] MEDS: insulin glargine (Lantus) pen - multi-dose SQ SCH (20:18)
[2018-04-19] MEDS ORDERED: traZODone 50mg tablet PO ONE (21:00)
[2018-04-19] MEDS ORDERED: HYDROcodone/acetaminophen 5mg/325mg tablet PO PRN (21:20)
[2018-04-19] MEDS: HYDROcodone/acetaminophen 10/325mg tab PO PRN (21:39)
[2018-04-20] VITALS (22 sets, daily range): BP systolic 94–157; BP diastolic 52–82
[2018-04-20] MEDS: gabapentin 400mg capsule PO SCH ×3 (00:30→16:18)
[2018-04-20] MEDS: mineral oil/petrolatum ophthal oint EACHEYE SCH ×4 (02:00→18:45)
[2018-04-20] MEDS: dexamethasone 4mg/ml inj IM SCH ×3 (02:28→14:00)
[2018-04-20] MEDS: vancomycin 125mg/5ml ORAL solution 5ml UD bottle PO SCH ×4 (02:28→19:21)
[2018-04-20 03:00] LABS: BASOPHILS % (AUTO) 0.2 % (0-1); EOSINOPHILS # (AUTO) 0.1 X10'3 (0-0.9); HEMATOCRIT 23.9 % (35.0-45.0); HEMOGLOBIN 7.9 g/dl (12.0-16.0); LYMPHOCYTES # (AUTO) 1.2 X10'3 (1.1-4.8); LYMPHOCYTES % (AUTO) 18.7 % (21-51); MEAN CORPUSCULAR HEMOGLOBIN 29.3 PG (27.0-31.0); MEAN CORPUSCULAR HGB CONC 32.9 % (33.0-36.5); MEAN CORPUSCULAR VOLUME 88.9 FL (78-98); MEAN PLATELET VOLUME 7.4 FL (7.4-10.4); MONOCYTES # (AUTO) 0.2 X10'3 (0-0.9); MONOCYTES % (AUTO) 2.6 % (2-12); NEUTROPHILS % (AUTO) 77.5 % (42-75); PLATELET COUNT 392 X10'3 (140-440); RED BLOOD COUNT 2.68 X10'6 (4.20-5.60); RED CELL DISTRIBUTION WIDTH 15.1 % (11.5-14.5); WHITE BLOOD COUNT 6.4 X10'3 (4.5-11.0)
[2018-04-20 03:13] LABS: INR 0.9 INR; PARTIAL THROMBOPLASTIN TIME 29 SECONDS (22-32); PROTHROMBIN TIME 9.7 SECONDS (9.0-12.0)
[2018-04-20 03:24] LABS: ALANINE AMINOTRANSFERASE 8 U/L (12-78); ALBUMIN 1.3 G/DL (3.4-5.0); ALBUMIN/GLOBULIN RATIO 0.3 (1.1-1.5); ALKALINE PHOSPHATASE 93 IU/L (46-116); ANION GAP 7 (8-16); ASPARTATE AMINO TRANSFERASE 17 U/L (10-37); BILIRUBIN,TOTAL 0.1 MG/DL (0.1-1.0); BLOOD UREA NITROGEN 15 MG/DL (7-18); BUN/CREATININE RATIO 23.8 (6.6-38.0); CALCIUM 7.9 MG/DL (8.5-10.1); CHLORIDE 109 MMOL/L (99-107); CREATININE 0.63 MG/DL (0.40-0.90); GLUCOSE 159 MG/DL (70-104); PHOSPHORUS 4.1 MG/DL (2.3-4.5); POTASSIUM 4.3 MMOL/L (3.5-5.1); SODIUM 141 MMOL/L (135-145); TOTAL CARBON DIOXIDE 24.8 MMOL/L (24-32); TOTAL PROTEIN 5.3 G/DL (6.4-8.2); eGFR > 90 ML/MIN
[2018-04-20] MEDS: ondansetron/PF 4mg/2ml inj IV PRN ×3 (04:43→18:55)
[2018-04-20] MEDS: HYDROcodone/acetaminophen 10/325mg tab PO PRN ×4 (04:44→21:18)
[2018-04-20] MEDS: K and/or MAG REPLACEMENT MC SCH (08:00)
[2018-04-20] MEDS: heparin, porcine 5000 units/ml vial SQ SCH ×2 (09:18→19:21)
[2018-04-20] MEDS: lactobacillus rhamnosus 10,000 MMU CELLS/CAPSULE PO SCH ×2 (09:19→19:21)
[2018-04-20] MEDS: dextrose 5%-1/2 normal saline 1,000 ML IV SCH (11:30)
[2018-04-20] MEDS ORDERED: morphine 2 MG/ML inj. syringe IV PRN (12:50)
[2018-04-20] MEDS: morphine 4 MG/ML inj SYRINge IV PRN ×2 (13:04→18:58)
[2018-04-20] MEDS: insulin glargine (Lantus) pen - multi-dose SQ SCH (21:00)
[2018-04-20] MEDS ORDERED: proCHLORperazine 10 MG/2 ml inj IM ONE (21:10)
[2018-04-20] MEDS: traZODone 50mg tablet PO SCH (21:18)
[2018-04-20] MEDS: dexmedetomidin/NS 400mcg/100ml 100 ML IV SCH (21:35)
[2018-04-21] VITALS (24 sets, daily range): BP systolic 80–174; BP diastolic 47–95
[2018-04-21] MEDS: gabapentin 400mg capsule PO SCH ×4 (00:32→23:59)
[2018-04-21] MEDS: ondansetron/PF 4mg/2ml inj IV PRN (00:32)
[2018-04-21] MEDS: morphine 4 MG/ML inj SYRINge IV PRN (00:32)
[2018-04-21] MEDS: dextrose 5%-1/2 normal saline 1,000 ML IV SCH ×2 (00:33→14:10)
[2018-04-21] MEDS: mineral oil/petrolatum ophthal oint EACHEYE SCH ×4 (02:00→20:32)
[2018-04-21] MEDS: HYDROcodone/acetaminophen 10/325mg tab PO PRN ×4 (02:56→22:27)
[2018-04-21] MEDS: vancomycin 125mg/5ml ORAL solution 5ml UD bottle PO SCH ×4 (02:56→20:32)
[2018-04-21 03:17] LABS: BASOPHILS % (AUTO) 0.2 % (0-1); EOSINOPHILS # (AUTO) 0.2 X10'3 (0-0.9); EOSINOPHILS % (AUTO) 1.5 % (0-6); HEMATOCRIT 22.5 % (35.0-45.0); HEMOGLOBIN 7.5 g/dl (12.0-16.0); LYMPHOCYTES # (AUTO) 3.5 X10'3 (1.1-4.8); LYMPHOCYTES % (AUTO) 25.4 % (21-51); MEAN CORPUSCULAR HEMOGLOBIN 29.8 PG (27.0-31.0); MEAN CORPUSCULAR HGB CONC 33.2 % (33.0-36.5); MEAN CORPUSCULAR VOLUME 89.6 FL (78-98); MEAN PLATELET VOLUME 7.1 FL (7.4-10.4); MONOCYTES # (AUTO) 1.1 X10'3 (0-0.9); MONOCYTES % (AUTO) 7.9 % (2-12); PLATELET COUNT 508 X10'3 (140-440); RED BLOOD COUNT 2.52 X10'6 (4.20-5.60); RED CELL DISTRIBUTION WIDTH 14.6 % (11.5-14.5); WHITE BLOOD COUNT 13.8 X10'3 (4.5-11.0)
[2018-04-21 03:22] LABS: PARTIAL THROMBOPLASTIN TIME 27 SECONDS (22-32); PROTHROMBIN TIME 10.6 SECONDS (9.0-12.0)
[2018-04-21 03:31] LABS: ALANINE AMINOTRANSFERASE 19 U/L (12-78); ALBUMIN 1.4 G/DL (3.4-5.0); ALBUMIN/GLOBULIN RATIO 0.4 (1.1-1.5); ALKALINE PHOSPHATASE 119 IU/L (46-116); ANION GAP 6 (8-16); ASPARTATE AMINO TRANSFERASE 25 U/L (10-37); BILIRUBIN,TOTAL 0.1 MG/DL (0.1-1.0); BLOOD UREA NITROGEN 16 MG/DL (7-18); BUN/CREATININE RATIO 19.5 (6.6-38.0); CALCIUM 8.1 MG/DL (8.5-10.1); CHLORIDE 110 MMOL/L (99-107); CREATININE 0.82 MG/DL (0.40-0.90); GLUCOSE 79 MG/DL (70-104); MAGNESIUM 1.9 MG/DL (1.5-2.4); PHOSPHORUS 4.1 MG/DL (2.3-4.5); PREALBUMIN 15.7 MG/DL (19-36); SODIUM 142 MMOL/L (135-145); TOTAL CARBON DIOXIDE 26.3 MMOL/L (24-32); TOTAL PROTEIN 5.3 G/DL (6.4-8.2); eGFR 69 ML/MIN
[2018-04-21] MEDS: NORepinephrine 8mg/ 250ml NS 250 ML IV SCH (04:47)
[2018-04-21] MEDS: K and/or MAG REPLACEMENT MC SCH (08:00)
[2018-04-21] MEDS: lactobacillus rhamnosus 10,000 MMU CELLS/CAPSULE PO SCH ×2 (08:01→20:32)
[2018-04-21] MEDS: heparin, porcine 5000 units/ml vial SQ SCH ×2 (08:02→20:33)
[2018-04-21] MEDS ORDERED: mag hydrox/Alum hydrox/simeth 30ml oral suspension PO ONE (13:55)
[2018-04-21] MEDS: insulin glargine (Lantus) pen - multi-dose SQ SCH (21:00)
[2018-04-21] MEDS: traZODone 50mg tablet PO SCH (21:59)
[2018-04-22] VITALS (16 sets, daily range): BP systolic 115–165; BP diastolic 62–96
[2018-04-22] MEDS: mineral oil/petrolatum ophthal oint EACHEYE SCH ×3 (02:12→14:00)
[2018-04-22] MEDS: vancomycin 125mg/5ml ORAL solution 5ml UD bottle PO SCH ×3 (02:12→14:55)
[2018-04-22] MEDS: dextrose 5%-1/2 normal saline 1,000 ML IV SCH (03:30)
[2018-04-22] MEDS: dexmedetomidin/NS 400mcg/100ml 100 ML IV SCH (03:35)
[2018-04-22 05:19] LABS: BASOPHILS # (AUTO) 0.1 X10'3 (0-0.2); BASOPHILS % (AUTO) 0.7 % (0-1); EOSINOPHILS # (AUTO) 0.2 X10'3 (0-0.9); EOSINOPHILS % (AUTO) 1.9 % (0-6); HEMATOCRIT 27.2 % (35.0-45.0); HEMOGLOBIN 8.9 g/dl (12.0-16.0); LYMPHOCYTES # (AUTO) 3.5 X10'3 (1.1-4.8); LYMPHOCYTES % (AUTO) 29.7 % (21-51); MEAN CORPUSCULAR HEMOGLOBIN 29.5 PG (27.0-31.0); MEAN CORPUSCULAR HGB CONC 32.6 % (33.0-36.5); MEAN CORPUSCULAR VOLUME 90.3 FL (78-98); MEAN PLATELET VOLUME 7.4 FL (7.4-10.4); MONOCYTES # (AUTO) 0.7 X10'3 (0-0.9); MONOCYTES % (AUTO) 6.3 % (2-12); NEUTROPHILS # (AUTO) 7.2 X10'3 (1.8-7.7); NEUTROPHILS % (AUTO) 61.4 % (42-75); PLATELET COUNT 617 X10'3 (140-440); RED BLOOD COUNT 3.02 X10'6 (4.20-5.60); RED CELL DISTRIBUTION WIDTH 15.6 % (11.5-14.5); WHITE BLOOD COUNT 11.8 X10'3 (4.5-11.0)
[2018-04-22 05:34] LABS: PARTIAL THROMBOPLASTIN TIME 24 SECONDS (22-32); PROTHROMBIN TIME 10.4 SECONDS (9.0-12.0)
[2018-04-22 06:03] LABS: ALANINE AMINOTRANSFERASE 15 U/L (12-78); ALBUMIN 1.6 G/DL (3.4-5.0); ALBUMIN/GLOBULIN RATIO 0.4 (1.1-1.5); ALKALINE PHOSPHATASE 145 IU/L (46-116); ANION GAP 5 (8-16); ASPARTATE AMINO TRANSFERASE 26 U/L (10-37); BILIRUBIN,TOTAL 0.2 MG/DL (0.1-1.0); BLOOD UREA NITROGEN 11 MG/DL (7-18); BUN/CREATININE RATIO 11.7 (6.6-38.0); CALCIUM 8.6 MG/DL (8.5-10.1); CHLORIDE 109 MMOL/L (99-107); CREATININE 0.94 MG/DL (0.40-0.90); GLUCOSE 75 MG/DL (70-104); MAGNESIUM 1.8 MG/DL (1.5-2.4); PHOSPHORUS 3.7 MG/DL (2.3-4.5); POTASSIUM 4.7 MMOL/L (3.5-5.1); SODIUM 145 MMOL/L (135-145); TOTAL CARBON DIOXIDE 31.5 MMOL/L (24-32); eGFR 59 ML/MIN
[2018-04-22 07:03] LABS: ANISOCYTOSIS 1+; HYPOCHROMASIA 1+; PLATELET ESTIMATE INCREASED; POLYCHROMASIA 2+
[2018-04-22] MEDS ORDERED: pantoprazole 40mg Tablet.DR PO SCH (07:30)
[2018-04-22] MEDS: heparin, porcine 5000 units/ml vial SQ SCH (07:43)
[2018-04-22] MEDS: lactobacillus rhamnosus 10,000 MMU CELLS/CAPSULE PO SCH (07:43)
[2018-04-22] MEDS: HYDROcodone/acetaminophen 10/325mg tab PO PRN (07:44)
[2018-04-22] MEDS: gabapentin 400mg capsule PO SCH (07:44)
[2018-04-22] MEDS ORDERED: morphine 4 MG/ML inj SYRINge IV PRN (09:40)
[2018-04-22] MEDS ORDERED: metoprolol tartrate 25mg tablet PO ONE (11:55)
[2018-04-22] MEDS ORDERED: metoprolol tartrate 25mg tablet PO SCH (20:00)
== END 2018-04-22 15:41 | DRG 870 ==
LOC: ER 01:20 → ED HOLD 05:39 → CICU 2S 07:05
PROVIDERS: ADMIT Internal Medicine Critical Care Medicine
PROC: 5A1955Z Respiratory Ventilation, Greater than 96 Consecutive Hours (ICD-10-PCS; principal; 2018-04-13)
PROC: 0BH17EZ Insertion of Endotracheal Airway into Trachea, Via Natural or Artificial Opening (ICD-10-PCS; 2018-04-13)
PROC: B4201ZZ Computerized Tomography (CT Scan) of Abdominal Aorta using Low Osmolar Contrast (ICD-10-PCS; 2018-04-13)
PROC: B4241ZZ Computerized Tomography (CT Scan) of Superior Mesenteric Artery using Low Osmolar Contrast (ICD-10-PCS; 2018-04-13)
PROC: B4281ZZ Computerized Tomography (CT Scan) of Bilateral Renal Arteries using Low Osmolar Contrast (ICD-10-PCS; 2018-04-13)
PROC: B4211ZZ Computerized Tomography (CT Scan) of Celiac Artery using Low Osmolar Contrast (ICD-10-PCS; 2018-04-13)
PROC: 02HV33Z Insertion of Infusion Device into Superior Vena Cava, Percutaneous Approach (ICD-10-PCS; 2018-04-13)
PROC: 5A09357 Assistance with Respiratory Ventilation, Less than 24 Consecutive Hours, Continuous Positive Airway Pressure (ICD-10-PCS; 2018-04-19)
DX: A41.9 Sepsis, unspecified organism (principal); J96.01 Acute respiratory failure with hypoxia; R65.21 Severe sepsis with septic shock; G93.40 Encephalopathy, unspecified; A04.72 Enterocolitis due to Clostridium difficile, not specified as recurrent; N17.9 Acute kidney failure, unspecified; E87.2 Acidosis; F11.20 Opioid dependence, uncomplicated; K51.90 Ulcerative colitis, unspecified, without complications; D64.9 Anemia, unspecified; F32.9 Major depressive disorder, single episode, unspecified; G89.29 Other chronic pain; M54.9 Dorsalgia, unspecified; B19.20 Unspecified viral hepatitis C without hepatic coma; I10 Essential (primary) hypertension; I73.9 Peripheral vascular disease, unspecified; J44.9 Chronic obstructive pulmonary disease, unspecified; Z90.49 Acquired absence of other specified parts of digestive tract; Z88.8 Allergy status to other drugs, medicaments and biological substances; Z79.899 Other long term (current) drug therapy; Z87.11 Personal history of peptic ulcer disease
CPT/HCPCS: 36415; 36556; 36600; 71045; 74174; 74176; 80053; 81001; 82803; 82810; 82948; 83036; 83605; 83735; 84100; 84132; 84134; 84145; 85018; 85025; 85610; 85730; 87040; 87070; 87324; 87328; 87329; 87336; 87449; 87493; 93005; 93970; 94002; 94003; 94660; 94760; 96365; 96368; 96375; 97110; 97162; 97530; 99291; A6213; A6222; A6257; A6449; C1758; J0330; J0780; J1100; J1644; J1815; J2250; J2270; J2405; J2543; J3370; J3475; J3480; J3490; J7030; J7042; J7060

== ENCOUNTER 2018-06-04 23:06 | Inpatient (IN) | payer MEDICARE, OTHER ==
[~2018-06-04] VITALS: Ht 144.8 cm; Wt 47.4 kg
[~2018-06-04 23:06] MED LIST changes: -AMIT-189 PO; -FENT-91 TD; +GABA600T2; -GABA600T2 PO; -LACT1CAP26 PO; -OMEP40CA37 PO; +ONDA4TAB12 PO; -PARO20TA6 PO; +QUET25TA34 PO; -RISP2TAB97 PO
[2018-06-04] MEDS ORDERED: ondansetron/PF 4mg/2ml inj IV ONE (23:45)
[2018-06-04] MEDS ORDERED: normal saline 1000ML IV soln IVB ONE (23:45)
[2018-06-04] MEDS ORDERED: AMLO5TAB4 PO (23:54)
[2018-06-04] MEDS ORDERED: OXYB5TAB11 PO (23:54)
[2018-06-04] MEDS ORDERED: METO25TA6 PO (23:54)
[2018-06-04] MEDS ORDERED: DOCU-28 PO (23:54)
[2018-06-04] MEDS ORDERED: HYDR25TA4 PO (23:54)
[2018-06-04] MEDS ORDERED: OXYB5TAB29 PO (23:54)
[2018-06-04] MEDS ORDERED: OMEP20TA5 PO (23:54)
[2018-06-04] MEDS ORDERED: TRAZ-143 PO (23:54)
[2018-06-04] MEDS ORDERED: GABA-534 PO (23:54)
[2018-06-04] MEDS ORDERED: ONDA4TAB9 SL (23:54)
[2018-06-05 00:45] LABS: BASOPHILS # (AUTO) 0.1 X10'3 (0-0.2); BASOPHILS % (AUTO) 0.4 % (0-1); EOSINOPHILS % (AUTO) 0.1 % (0-6); HEMATOCRIT 40.9 % (35.0-45.0); HEMOGLOBIN 13.1 g/dl (12.0-16.0); LYMPHOCYTES # (AUTO) 1.8 X10'3 (1.1-4.8); LYMPHOCYTES % (AUTO) 12.4 % (21-51); MEAN CORPUSCULAR HEMOGLOBIN 30.1 PG (27.0-31.0); MEAN CORPUSCULAR HGB CONC 31.9 % (33.0-36.5); MEAN CORPUSCULAR VOLUME 94.4 FL (78-98); MEAN PLATELET VOLUME 6.6 FL (7.4-10.4); MONOCYTES # (AUTO) 0.1 X10'3 (0-0.9); NEUTROPHILS # (AUTO) 12.6 X10'3 (1.8-7.7); NEUTROPHILS % (AUTO) 86.1 % (42-75); PLATELET COUNT 546 X10'3 (140-440); RED BLOOD COUNT 4.33 X10'6 (4.20-5.60); WHITE BLOOD COUNT 14.6 X10'3 (4.5-11.0)
[2018-06-05 00:50] LABS: PARTIAL THROMBOPLASTIN TIME 28 SECONDS (22-32); PROTHROMBIN TIME 10.3 SECONDS (9.0-12.0)
[2018-06-05 00:52] LABS: AMMONIA < 10 UMOL/L (11-32)
[2018-06-05 00:57] LABS: LACTIC SEPSIS 1.2 MMOL/L (0.4-2.0)
[2018-06-05 01:08] LABS: ALANINE AMINOTRANSFERASE 140 U/L (12-78); ALBUMIN 3.7 G/DL (3.4-5.0); ALBUMIN/GLOBULIN RATIO 0.7 (1.1-1.5); ALKALINE PHOSPHATASE 136 IU/L (46-116); ANION GAP 16 (8-16); ASPARTATE AMINO TRANSFERASE 139 U/L (10-37); BILIRUBIN,TOTAL 0.2 MG/DL (0.1-1.0); BLOOD UREA NITROGEN 36 MG/DL (7-18); CHLORIDE 103 MMOL/L (99-107); CREATININE 1.16 MG/DL (0.40-0.90); GLUCOSE 122 MG/DL (70-104); POTASSIUM 4.8 MMOL/L (3.5-5.1); SODIUM 138 MMOL/L (135-145); TOTAL CARBON DIOXIDE 19.4 MMOL/L (24-32); TOTAL PROTEIN 8.8 G/DL (6.4-8.2); eGFR 46 ML/MIN
[2018-06-05 01:19] LABS: CALCIUM 10.1 MG/DL (8.5-10.1); CREATINE KINASE 14 U/L (26-192); ETHANOL < 0.010 GM/DL (0.0-0.010); MAGNESIUM 2.2 MG/DL (1.5-2.4); PHOSPHORUS 5.9 MG/DL (2.3-4.5)
[2018-06-05 01:21] LABS: ACETAMINOPHEN < 2.0 UG/ML (10-30)
[2018-06-05 01:33] LABS: CLARITY,URINE Clear (Clear); COLOR,URINE Yellow (Yellow); GLUCOSE, URINE Negative (Neg); KETONES,URINE 15 mg/dl (Neg); LEUKOCYTE ESTERASE ,URINE Negative (Neg); NITRITES, URINE Negative (Neg); OCCULT BLOOD,URINE Negative (Neg); PROTEIN,URINE 30 mg/dl (Neg)
[2018-06-05 01:39] LABS: BACTERIA,URINE NONE SEEN /HPF (Neg); RBC,URINE NONE SEEN /HPF (0-2); UA COLLECTION TYPE FOLEY CATH; WBC,URINE NONE SEEN /HPF (0-4)
[2018-06-05 01:40] LABS: SQUAMOUS EPITHELIAL CELL,UR FEW /LPF (FEW)
[2018-06-05 01:45] LABS: URINE AMPHETAMINE SCREEN NEGATIVE (Neg); URINE BARBITUATE SCREEN NEGATIVE (Neg); URINE BENZODIAZEPINES SCREEN NEGATIVE (Neg); URINE CANNABINOID SCREEN NEGATIVE (Neg); URINE COCAINE SCREEN NEGATIVE (Neg); URINE METHADONE SCREEN NEGATIVE (Neg); URINE OPIATE SCREEN NEGATIVE (Neg); URINE PHENCYCLIDINE SCREEN NEGATIVE (Neg)
[2018-06-05] MEDS ORDERED: acetaminophen 325mg tablet PO PRN (02:45)
[2018-06-05] MEDS ORDERED: bisacodyl 10mg suppository rectal RC PRN (02:45)
[2018-06-05] MEDS ORDERED: HYDROmorphone inj. 0.5 MG/0.5 ML DISP.SYRIN IV PRN ×2 (02:45)
[2018-06-05] MEDS ORDERED: acetaminophen 650mg rectal suppository RC PRN (02:45)
[2018-06-05] MEDS ORDERED: mag hydrox/Alum hydrox/simeth 30ml oral suspension PO PRN (02:45)
[2018-06-05] MEDS ORDERED: magnesium hydroxide 30ml (MOM) UD suspension PO PRN (02:45)
[2018-06-05] MEDS ORDERED: morphine 4 MG/ML inj SYRINge IV PRN ×2 (02:45)
[2018-06-05] MEDS ORDERED: metoclopramide 5 mg/ml inj IV PRN (02:45)
[2018-06-05] MEDS ORDERED: CefTRIAXone/D5W-Rocephin 1gm 50 ML IV SCH (03:09)
[2018-06-05 03:14] LABS: LIPASE 107 U/L (73-393)
[2018-06-05 04:00] VITALS: BP 144/58
[2018-06-05] MEDS: normal saline 1000ml 1,000 ML IV SCH ×2 (04:07→14:47)
[2018-06-05] MEDS: methylPREDNISolone sod succ 125mg/2ml vial IV SCH ×2 (04:08→08:44)
[2018-06-05] MEDS: azithromycin 250mg tablet PO SCH ×2 (04:08→08:44)
[2018-06-05 08:00] VITALS: BP 144/70
[2018-06-05] MEDS ORDERED: docusate sod 100mg capsule PO SCH (08:00)
[2018-06-05] MEDS: heparin, porcine 5000 units/ml vial SQ SCH ×2 (08:44→20:43)
[2018-06-05] MEDS ORDERED: etomidate 2mg/ml inj. ONE (09:00)
[2018-06-05] MEDS ORDERED: 0.9 % SODIUM CHLORIDE 10 ML VIAL ONE (09:00)
[2018-06-05 10:46] LABS: BASOPHILS % (AUTO) 0.2 % (0-1); EOSINOPHILS # (AUTO) 0.2 X10'3 (0-0.9); EOSINOPHILS % (AUTO) 1.2 % (0-6); HEMATOCRIT 35.6 % (35.0-45.0); HEMOGLOBIN 11.8 g/dl (12.0-16.0); LYMPHOCYTES # (AUTO) 2.5 X10'3 (1.1-4.8); LYMPHOCYTES % (AUTO) 18.1 % (21-51); MEAN CORPUSCULAR HEMOGLOBIN 30.7 PG (27.0-31.0); MEAN CORPUSCULAR VOLUME 92.9 FL (78-98); MEAN PLATELET VOLUME 6.4 FL (7.4-10.4); MONOCYTES # (AUTO) 0.1 X10'3 (0-0.9); MONOCYTES % (AUTO) 0.7 % (2-12); NEUTROPHILS # (AUTO) 11.2 X10'3 (1.8-7.7); NEUTROPHILS % (AUTO) 79.8 % (42-75); PLATELET COUNT 482 X10'3 (140-440); RED BLOOD COUNT 3.83 X10'6 (4.20-5.60); RED CELL DISTRIBUTION WIDTH 17.4 % (11.5-14.5); WHITE BLOOD COUNT 14.1 X10'3 (4.5-11.0)
[2018-06-05 12:00] VITALS: BP 146/89
[2018-06-05 19:00] VITALS: BP 153/84
[2018-06-05] MEDS: lactobacillus rhamnosus 10,000 MMU CELLS/CAPSULE PO SCH (20:43)
[2018-06-05] MEDS ORDERED: temazepam 15mg capsule PO PRN (21:00)
[2018-06-05] MEDS ORDERED: metoprolol tartrate 25mg tablet PO ONE (21:24)
[2018-06-05] MEDS: ondansetron/PF 4mg/2ml inj IV PRN (23:44)
[2018-06-06] VITALS: BP_SYST 133; BP_SYST 160; BP_DIAS 70; BP_DIAS 90
[2018-06-06] MEDS: normal saline 1000ml 1,000 ML IV SCH ×2 (02:24→08:42)
[2018-06-06 05:43] LABS: BASOPHILS # (AUTO) 0.1 X10'3 (0-0.2); BASOPHILS % (AUTO) 0.4 % (0-1); EOSINOPHILS % (AUTO) 0 % (0-6); HEMOGLOBIN 9.8 g/dl (12.0-16.0); LYMPHOCYTES # (AUTO) 2.2 X10'3 (1.1-4.8); LYMPHOCYTES % (AUTO) 13.2 % (21-51); MEAN CORPUSCULAR HEMOGLOBIN 30.5 PG (27.0-31.0); MEAN CORPUSCULAR HGB CONC 33.6 % (33.0-36.5); MEAN CORPUSCULAR VOLUME 90.9 FL (78-98); MEAN PLATELET VOLUME 6.4 FL (7.4-10.4); MONOCYTES # (AUTO) 1.3 X10'3 (0-0.9); MONOCYTES % (AUTO) 7.9 % (2-12); NEUTROPHILS # (AUTO) 12.9 X10'3 (1.8-7.7); NEUTROPHILS % (AUTO) 78.5 % (42-75); PLATELET COUNT 424 X10'3 (140-440); RED BLOOD COUNT 3.19 X10'6 (4.20-5.60); RED CELL DISTRIBUTION WIDTH 16.9 % (11.5-14.5); WHITE BLOOD COUNT 16.4 X10'3 (4.5-11.0)
[2018-06-06 06:03] LABS: ALANINE AMINOTRANSFERASE 75 U/L (12-78); ALBUMIN 3.1 G/DL (3.4-5.0); ALBUMIN/GLOBULIN RATIO 0.8 (1.1-1.5); ALKALINE PHOSPHATASE 89 IU/L (46-116); ANION GAP 10 (8-16); ASPARTATE AMINO TRANSFERASE 35 U/L (10-37); BILIRUBIN,TOTAL 0.2 MG/DL (0.1-1.0); BLOOD UREA NITROGEN 27 MG/DL (7-18); BUN/CREATININE RATIO 28.1 (6.6-38.0); CALCIUM 8.4 MG/DL (8.5-10.1); CHLORIDE 102 MMOL/L (99-107); CREATININE 0.96 MG/DL (0.40-0.90); GLUCOSE 80 MG/DL (70-104); POTASSIUM 4.1 MMOL/L (3.5-5.1); SODIUM 133 MMOL/L (135-145); TOTAL CARBON DIOXIDE 20.8 MMOL/L (24-32); eGFR 57 ML/MIN
[2018-06-06] MEDS: heparin, porcine 5000 units/ml vial SQ SCH ×2 (07:17→20:43)
[2018-06-06] MEDS: lactobacillus rhamnosus 10,000 MMU CELLS/CAPSULE PO SCH ×3 (07:17→19:50)
[2018-06-06 07:42] VITALS: BP 139/77
[2018-06-06] MEDS ORDERED: metoprolol tartrate 25mg tablet PO SCH (08:00)
[2018-06-06] MEDS ORDERED: ipratropium/albuterol 3ml nebule NEB PRN ×2 (08:00→10:05)
[2018-06-06 08:20] LABS: ABG BASE EXCESS -4.2 mmol/L (-2.0-3.0); ABG HCO3 19.8 mmol/L (22.0-26.0); ABG OXYGEN SATURATION 81.5 % (95-98); ABG PCO2 (T) 32.4 mmHg (32.0-45.0); ABG PH (T) 7.404 (7.350-7.450); ABG PO2 (T) 45.3 mmHg (83-108); FCOHb 0.2 % (0.5-1.5); FLOW 6 L/min; FMetHb 0.3 % (0.3-1.12); FO2Hb 81.1 % (94-100); TOTAL HEMOGLOBIN 10.1 G/dl (12.0-16.0)
[2018-06-06] MEDS: CefTRIAXone/D5W-Rocephin 1gm 50 ML IV SCH (09:50)
[2018-06-06] MEDS ORDERED: methylPREDNISolone sod succ 125mg/2ml vial IV ONE (10:05)
[2018-06-06] MEDS ORDERED: vancomycin/NS 1 GM ADD-VANTAGE 250 ML IV ONE (10:25)
[2018-06-06 12:00] VITALS: BP_SYST 121; BP_SYST 145; BP_DIAS 67; BP_DIAS 74
[2018-06-06] MEDS ORDERED: methylPREDNISolone sod succ 125mg/2ml vial IV SCH (14:00)
[2018-06-06] MEDS: ipratropium/albuterol 3ml nebule NEB SCH ×4 (15:03→23:00)
[2018-06-06] MEDS ORDERED: aspirin 325mg tablet PO SCH (15:30)
[2018-06-06 16:16] LABS: CHOL/HDL RATIO 4.2 (0.00-4.99); CHOLESTEROL 163 MG/DL (0-200); HDL CHOLESTEROL 39 MG/DL (35-60); LDL CHOLESTEROL 96 MG/DL (50-100); TRIGLYCERIDES 190 MG/DL (20-135)
[2018-06-06] MEDS: aspirin 300mg supp.rect RC SCH (17:05)
[2018-06-06 19:30] VITALS: BP 153/66
[2018-06-06] MEDS: metoprolol tartrate 12.5mg (1/2 tablet) PO SCH (19:50)
[2018-06-06 22:00] VITALS: BP 136/92
[2018-06-07] VITALS (16 sets, daily range): BP systolic 53–194; BP diastolic 45–113
[2018-06-07] MEDS: normal saline 1000ml 1,000 ML IV SCH ×2 (03:57→12:46)
[2018-06-07 05:46] LABS: BASOPHILS % (AUTO) 0.2 % (0-1); EOSINOPHILS % (AUTO) 0 % (0-6); HEMATOCRIT 30.5 % (35.0-45.0); HEMOGLOBIN 10.3 g/dl (12.0-16.0); LYMPHOCYTES # (AUTO) 1.6 X10'3 (1.1-4.8); LYMPHOCYTES % (AUTO) 10.7 % (21-51); MEAN CORPUSCULAR HEMOGLOBIN 30.6 PG (27.0-31.0); MEAN CORPUSCULAR HGB CONC 33.7 % (33.0-36.5); MEAN CORPUSCULAR VOLUME 90.8 FL (78-98); MEAN PLATELET VOLUME 6.5 FL (7.4-10.4); MONOCYTES # (AUTO) 0.6 X10'3 (0-0.9); MONOCYTES % (AUTO) 3.7 % (2-12); NEUTROPHILS # (AUTO) 12.8 X10'3 (1.8-7.7); NEUTROPHILS % (AUTO) 85.4 % (42-75); PLATELET COUNT 358 X10'3 (140-440); RED BLOOD COUNT 3.36 X10'6 (4.20-5.60); RED CELL DISTRIBUTION WIDTH 16.5 % (11.5-14.5)
[2018-06-07 05:56] LABS: ALANINE AMINOTRANSFERASE 51 U/L (12-78); ALBUMIN 2.8 G/DL (3.4-5.0); ALBUMIN/GLOBULIN RATIO 0.7 (1.1-1.5); ALKALINE PHOSPHATASE 70 IU/L (46-116); ANION GAP 9 (8-16); ASPARTATE AMINO TRANSFERASE 17 U/L (10-37); BILIRUBIN,TOTAL 0.3 MG/DL (0.1-1.0); BLOOD UREA NITROGEN 13 MG/DL (7-18); BUN/CREATININE RATIO 17.1 (6.6-38.0); CALCIUM 7.9 MG/DL (8.5-10.1); CHLORIDE 104 MMOL/L (99-107); CREATININE 0.76 MG/DL (0.40-0.90); GLUCOSE 102 MG/DL (70-104); SODIUM 136 MMOL/L (135-145); TOTAL CARBON DIOXIDE 23.3 MMOL/L (24-32); TOTAL PROTEIN 6.8 G/DL (6.4-8.2); eGFR 75 ML/MIN
[2018-06-07 06:31] LABS: POTASSIUM 2.8 MMOL/L (3.5-5.1)
[2018-06-07] MEDS ORDERED: potassium Cl 40MEQ/NS 500ml 500 ML IV PRN ×2 (06:50)
[2018-06-07] MEDS ORDERED: potassium Cl 20 mEq SR tablet PO PRN ×3 (06:50→15:20)
[2018-06-07] MEDS: ipratropium/albuterol 3ml nebule NEB SCH ×4 (07:31→23:53)
[2018-06-07] MEDS: lactobacillus rhamnosus 10,000 MMU CELLS/CAPSULE PO SCH ×2 (07:42→19:12)
[2018-06-07] MEDS: metoprolol tartrate 12.5mg (1/2 tablet) PO SCH ×2 (07:42→19:12)
[2018-06-07] MEDS: heparin, porcine 5000 units/ml vial SQ SCH ×2 (07:51→19:12)
[2018-06-07] MEDS: CefTRIAXone/D5W-Rocephin 1gm 50 ML IV SCH (07:51)
[2018-06-07] MEDS: aspirin 300mg supp.rect RC SCH (07:52)
[2018-06-07] MEDS ORDERED: vancomycin/NS 1 GM ADD-VANTAGE 250 ML IV SCH (11:00)
[2018-06-07] MEDS: vancomycin/NS 1 GM ADD-VANTAGE 250 ML IV SCH (11:20)
[2018-06-07] MEDS: hyoscyamine 0.125mg TAB.SUBL SL PRN (12:09)
[2018-06-07] MEDS: LORazepam 2 mg/ml vial ONE ×4 (14:56→18:04)
[2018-06-07] MEDS ORDERED: MIDAZolam 5mg/ml 2ml vial ONE (15:17)
[2018-06-07] MEDS ORDERED: sodium phosphate inj. 30 MMOL in dextrose 5%-water 250 ML IV PRN ×2 (15:20→17:39)
[2018-06-07] MEDS ORDERED: magnesium Cl slow-release 64mg tablet PO PRN (15:20)
[2018-06-07] MEDS ORDERED: acetaminophen 325mg tablet PO PRN ×2 (15:20)
[2018-06-07] MEDS ORDERED: sodium phosphate inj. 15 MMOL in dextrose 5%-water 150 ML IV PRN (15:20)
[2018-06-07] MEDS ORDERED: magnesium hydroxide 30ml (MOM) UD suspension PO PRN (15:20)
[2018-06-07] MEDS ORDERED: ondansetron/PF 4mg/2ml inj IV PRN (15:20)
[2018-06-07] MEDS ORDERED: ipratropium/albuterol 3ml nebule NEB PRN (15:20)
[2018-06-07] MEDS ORDERED: magnesium 4gm in 100ml NS 100 ML IV PRN ×2 (15:20→17:40)
[2018-06-07] MEDS ORDERED: Neutra Phos packet PO PRN ×2 (15:20→17:40)
[2018-06-07] MEDS ORDERED: magnesium 1gm/100ml D5W IVPB 100 ML IV PRN (15:20)
[2018-06-07] MEDS ORDERED: methylPREDNISolone sod succ 125mg/2ml vial IV ONE (15:25)
[2018-06-07] MEDS ORDERED: LORazepam 2 mg/ml vial IV ONE (15:30)
[2018-06-07] MEDS ORDERED: NORepinephrine 8mg/ 250ml NS 250 ML IV SCH (15:45)
[2018-06-07 16:00] LABS: ABG BASE EXCESS -4.7 mmol/L (-2.0-3.0); ABG HCO3 18.7 mmol/L (22.0-26.0); ABG OXYGEN SATURATION 98.4 % (95-98); ABG PH (T) 7.417 (7.350-7.450); ABG PO2 (T) 145.1 mmHg (83-108); FCOHb 0.3 % (0.5-1.5); FLOW 80 L/min; FMetHb 0.3 % (0.3-1.12); FO2Hb 97.8 % (94-100); PEEP 5 cm H2O; RESPIRATORY RATE 14 b/min; TIDAL VOLUME 350 mL; TOTAL HEMOGLOBIN 9.7 G/dl (12.0-16.0)
[2018-06-07] MEDS: FENTANYL-0.9 % NACL/PF 100 ML IV PRN (17:02)
[2018-06-07] MEDS: midazolam 100mg in NS 100ml 100 ML IV PRN (17:02)
[2018-06-07] MEDS ORDERED: levetiracetam inj 1,500 MG in normal saline 100ml IV soln 85 ML IV ONE (17:15)
[2018-06-07 17:16] LABS: ALANINE AMINOTRANSFERASE 33 U/L (12-78); ALBUMIN 2.2 G/DL (3.4-5.0); ALBUMIN/GLOBULIN RATIO 0.6 (1.1-1.5); ALKALINE PHOSPHATASE 60 IU/L (46-116); ANION GAP 11 (8-16); ASPARTATE AMINO TRANSFERASE 18 U/L (10-37); BILIRUBIN,TOTAL 0.4 MG/DL (0.1-1.0); BLOOD UREA NITROGEN 11 MG/DL (7-18); BUN/CREATININE RATIO 12.9 (6.6-38.0); CALCIUM 7.3 MG/DL (8.5-10.1); CHLORIDE 111 MMOL/L (99-107); CREATININE 0.85 MG/DL (0.40-0.90); GLUCOSE 86 MG/DL (70-104); MAGNESIUM 1.5 MG/DL (1.5-2.4); SODIUM 143 MMOL/L (135-145); TOTAL CARBON DIOXIDE 20.6 MMOL/L (24-32); TOTAL PROTEIN 5.6 G/DL (6.4-8.2); eGFR 66 ML/MIN
[2018-06-07 17:20] LABS: BASOPHILS % (AUTO) 0.2 % (0-1); EOSINOPHILS % (AUTO) 0 % (0-6); HEMATOCRIT 26.2 % (35.0-45.0); HEMOGLOBIN 8.8 g/dl (12.0-16.0); LYMPHOCYTES % (AUTO) 7.7 % (21-51); MEAN CORPUSCULAR HEMOGLOBIN 30.8 PG (27.0-31.0); MEAN CORPUSCULAR HGB CONC 33.5 % (33.0-36.5); MEAN PLATELET VOLUME 6.4 FL (7.4-10.4); MONOCYTES # (AUTO) 0.5 X10'3 (0-0.9); MONOCYTES % (AUTO) 3.5 % (2-12); NEUTROPHILS # (AUTO) 11.9 X10'3 (1.8-7.7); NEUTROPHILS % (AUTO) 88.6 % (42-75); PLATELET COUNT 317 X10'3 (140-440); RED BLOOD COUNT 2.85 X10'6 (4.20-5.60); RED CELL DISTRIBUTION WIDTH 16.6 % (11.5-14.5); WHITE BLOOD COUNT 13.4 X10'3 (4.5-11.0)
[2018-06-07 17:31] LABS: INR 1.1 INR; PARTIAL THROMBOPLASTIN TIME 29 SECONDS (22-32); PROTHROMBIN TIME 11.4 SECONDS (9.0-12.0)
[2018-06-07 17:31] LABS: POTASSIUM 2.5 MMOL/L (3.5-5.1)
[2018-06-07 18:20] LABS: BANDS% (MANUAL) 4 % (0-10); LYMPHOCYTES % (MANUAL) 7 % (21-51); MONOCYTES % (MANUAL) 2 % (2-12); NEUTROPHILS % (MANUAL) 87 % (42-75); PLATELET ESTIMATE NORMAL; TOTAL CELLS COUNTED 100
[2018-06-07 18:21] LABS: ANISOCYTOSIS 1+; POLYCHROMASIA FEW; TOXIC GRANULATION 1+; TOXIC VACUOLATION 2+
[2018-06-07 18:34] LABS: PHOSPHORUS 1.2 MG/DL (2.3-4.5)
[2018-06-07] MEDS: methylPREDNISolone sod succ 125mg/2ml vial IV SCH (19:11)
[2018-06-07] MEDS: piperacillin-tazo 2.25gm/50ml 50 ML IV SCH (19:13)
[2018-06-07] MEDS: potassium Cl 40MEQ/250ML bag 250 ML IV PRN ×2 (19:18→21:41)
[2018-06-07] MEDS ORDERED: levetiracetam inj 500 MG in normal saline 100ml IV soln 95 ML IV SCH (20:00)
[2018-06-08] VITALS (24 sets, daily range): BP systolic 82–135; BP diastolic 55–83
[2018-06-08] MEDS: vancomycin/NS 1 GM ADD-VANTAGE 250 ML IV SCH ×4 (01:52→22:54)
[2018-06-08] MEDS: piperacillin-tazo 2.25gm/50ml 50 ML IV SCH ×4 (02:11→20:09)
[2018-06-08] MEDS: methylPREDNISolone sod succ 125mg/2ml vial IV SCH ×4 (02:11→20:10)
[2018-06-08 02:31] LABS: BASOPHILS % (AUTO) 0 % (0-1); EOSINOPHILS % (AUTO) 0 % (0-6); HEMATOCRIT 26.9 % (35.0-45.0); HEMOGLOBIN 8.8 g/dl (12.0-16.0); LYMPHOCYTES # (AUTO) 0.7 X10'3 (1.1-4.8); LYMPHOCYTES % (AUTO) 3.7 % (21-51); MEAN CORPUSCULAR HEMOGLOBIN 30.5 PG (27.0-31.0); MEAN CORPUSCULAR HGB CONC 32.8 % (33.0-36.5); MEAN CORPUSCULAR VOLUME 92.9 FL (78-98); MONOCYTES # (AUTO) 0.2 X10'3 (0-0.9); MONOCYTES % (AUTO) 0.8 % (2-12); NEUTROPHILS # (AUTO) 18.8 X10'3 (1.8-7.7); NEUTROPHILS % (AUTO) 95.5 % (42-75); PLATELET COUNT 357 X10'3 (140-440); RED CELL DISTRIBUTION WIDTH 16.9 % (11.5-14.5); WHITE BLOOD COUNT 19.6 X10'3 (4.5-11.0)
[2018-06-08 02:53] LABS: ALANINE AMINOTRANSFERASE 30 U/L (12-78); ALBUMIN 2.2 G/DL (3.4-5.0); ALBUMIN/GLOBULIN RATIO 0.6 (1.1-1.5); ALKALINE PHOSPHATASE 61 IU/L (46-116); ANION GAP 13 (8-16); ASPARTATE AMINO TRANSFERASE 13 U/L (10-37); BILIRUBIN,TOTAL 0.2 MG/DL (0.1-1.0); BLOOD UREA NITROGEN 11 MG/DL (7-18); BUN/CREATININE RATIO 14.7 (6.6-38.0); CALCIUM 6.9 MG/DL (8.5-10.1); CHLORIDE 113 MMOL/L (99-107); CREATININE 0.75 MG/DL (0.40-0.90); GLUCOSE 149 MG/DL (70-104); MAGNESIUM 1.6 MG/DL (1.5-2.4); PHOSPHORUS 4.3 MG/DL (2.3-4.5); POTASSIUM 4.3 MMOL/L (3.5-5.1); SODIUM 145 MMOL/L (135-145); TOTAL CARBON DIOXIDE 19.3 MMOL/L (24-32); eGFR 76 ML/MIN
[2018-06-08] MEDS: ipratropium/albuterol 3ml nebule NEB SCH ×6 (03:10→23:07)
[2018-06-08 04:15] LABS: ABG BASE EXCESS -10.8 mmol/L (-2.0-3.0); ABG HCO3 13.9 mmol/L (22.0-26.0); ABG OXYGEN SATURATION 97.3 % (95-98); ABG PCO2 (T) 27.8 mmHg (32.0-45.0); ABG PH (T) 7.319 (7.350-7.450); ABG PO2 (T) 112.7 mmHg (83-108); ALLEN'S TEST Positive; FCOHb 0.3 % (0.5-1.5); FMetHb 0.3 % (0.3-1.12); FO2Hb 96.7 % (94-100); MINUTE VOLUME 7 L/min; PATIENT TEMPERATURE 37.5; PEEP 5 cm H2O; RESPIRATORY RATE 14 b/min; RESPIRATORY RATE (OBSERVED) 18 b/min; TIDAL VOLUME 350 mL; TOTAL HEMOGLOBIN 9.6 G/dl (12.0-16.0)
[2018-06-08 04:52] LABS: TOTAL CELLS COUNTED 100
[2018-06-08 04:54] LABS: ANISOCYTOSIS 1+; PLATELET ESTIMATE NORMAL; POLYCHROMASIA FEW
[2018-06-08] MEDS: normal saline 1000ml 1,000 ML IV SCH ×4 (04:59→23:55)
[2018-06-08] MEDS: lactobacillus rhamnosus 10,000 MMU CELLS/CAPSULE PO SCH ×2 (07:25→20:09)
[2018-06-08] MEDS: pantoprazole 40 MG vial IV SCH (07:25)
[2018-06-08] MEDS: heparin, porcine 5000 units/ml vial SQ SCH ×2 (07:27→20:10)
[2018-06-08] MEDS: metoprolol tartrate 12.5mg (1/2 tablet) PO SCH ×2 (07:36→20:09)
[2018-06-08] MEDS: K and/or MAG REPLACEMENT MC SCH (08:00)
[2018-06-08] MEDS: levetiracetam inj 500 MG in normal saline 100ml IV soln 95 ML IV SCH ×2 (09:31→20:09)
[2018-06-08] MEDS: aspirin 325mg tablet PO SCH (10:54)
[2018-06-08] MEDS: FENTANYL-0.9 % NACL/PF 100 ML IV PRN (14:14)
[2018-06-08] MEDS: mineral oil/petrolatum ophthal oint EACHEYE SCH (20:31)
[2018-06-08] MEDS ORDERED: VANCOMYCIN LEVEL IV ONE (22:30)
[2018-06-09] VITALS (23 sets, daily range): BP systolic 94–181; BP diastolic 54–105
[2018-06-09] MEDS: mineral oil/petrolatum ophthal oint EACHEYE SCH ×4 (02:00→20:07)
[2018-06-09 03:04] LABS: BASOPHILS % (AUTO) 0.2 % (0-1); EOSINOPHILS % (AUTO) 0 % (0-6); HEMATOCRIT 26.1 % (35.0-45.0); HEMOGLOBIN 8.7 g/dl (12.0-16.0); LYMPHOCYTES # (AUTO) 0.9 X10'3 (1.1-4.8); LYMPHOCYTES % (AUTO) 6.7 % (21-51); MEAN CORPUSCULAR HEMOGLOBIN 30.7 PG (27.0-31.0); MEAN CORPUSCULAR HGB CONC 33.2 % (33.0-36.5); MEAN CORPUSCULAR VOLUME 92.6 FL (78-98); MONOCYTES # (AUTO) 0.2 X10'3 (0-0.9); MONOCYTES % (AUTO) 1.8 % (2-12); NEUTROPHILS # (AUTO) 12.6 X10'3 (1.8-7.7); NEUTROPHILS % (AUTO) 91.3 % (42-75); PLATELET COUNT 337 X10'3 (140-440); RED BLOOD COUNT 2.82 X10'6 (4.20-5.60); RED CELL DISTRIBUTION WIDTH 17.1 % (11.5-14.5); WHITE BLOOD COUNT 13.8 X10'3 (4.5-11.0)
[2018-06-09 03:21] LABS: ALANINE AMINOTRANSFERASE 23 U/L (12-78); ALBUMIN 2.2 G/DL (3.4-5.0); ALBUMIN/GLOBULIN RATIO 0.6 (1.1-1.5); ALKALINE PHOSPHATASE 66 IU/L (46-116); ANION GAP 14 (8-16); ASPARTATE AMINO TRANSFERASE 9 U/L (10-37); BILIRUBIN,TOTAL 0.2 MG/DL (0.1-1.0); BLOOD UREA NITROGEN 16 MG/DL (7-18); BUN/CREATININE RATIO 18.2 (6.6-38.0); CALCIUM 7.5 MG/DL (8.5-10.1); CHLORIDE 113 MMOL/L (99-107); CREATININE 0.88 MG/DL (0.40-0.90); GLUCOSE 145 MG/DL (70-104); MAGNESIUM 1.6 MG/DL (1.5-2.4); PHOSPHORUS 1.8 MG/DL (2.3-4.5); PREALBUMIN 13.6 MG/DL (19-36); SODIUM 143 MMOL/L (135-145); TOTAL CARBON DIOXIDE 15.9 MMOL/L (24-32); TOTAL PROTEIN 5.9 G/DL (6.4-8.2); eGFR 63 ML/MIN
[2018-06-09] MEDS: methylPREDNISolone sod succ 125mg/2ml vial IV SCH ×4 (03:21→19:55)
[2018-06-09 03:24] LABS: POTASSIUM 2.9 MMOL/L (3.5-5.1)
[2018-06-09] MEDS: piperacillin-tazo 2.25gm/50ml 50 ML IV SCH ×4 (03:26→20:17)
[2018-06-09] MEDS ORDERED: potassium Cl 40MEQ/250ML bag 250 ML IV ONE (03:33)
[2018-06-09] MEDS: ipratropium/albuterol 3ml nebule NEB SCH ×6 (03:40→23:07)
[2018-06-09 04:01] LABS: ABG BASE EXCESS -10.5 mmol/L (-2.0-3.0); ABG OXYGEN SATURATION 93.6 % (95-98); ABG PCO2 (T) 26.2 mmHg (32.0-45.0); ABG PH (T) 7.344 (7.350-7.450); ABG PO2 (T) 71.6 mmHg (83-108); FCOHb 0.3 % (0.5-1.5); FMetHb 0.3 % (0.3-1.12); MINUTE VOLUME 8 L/min; PATIENT TEMPERATURE 36.7; PEEP 5 cm H2O; RESPIRATORY RATE 14 b/min; RESPIRATORY RATE (OBSERVED) 18 b/min; TIDAL VOLUME 350 mL; TOTAL HEMOGLOBIN 9.5 G/dl (12.0-16.0)
[2018-06-09] MEDS: potassium Cl 40MEQ/250ML bag 250 ML IV PRN ×2 (04:11→22:26)
[2018-06-09] MEDS: FENTANYL-0.9 % NACL/PF 100 ML IV PRN (07:10)
[2018-06-09] MEDS: metoprolol tartrate 12.5mg (1/2 tablet) PO SCH ×2 (07:11→19:56)
[2018-06-09] MEDS: aspirin 325mg tablet PO SCH (07:11)
[2018-06-09] MEDS: lactobacillus rhamnosus 10,000 MMU CELLS/CAPSULE PO SCH ×2 (07:11→19:55)
[2018-06-09] MEDS: midazolam 100mg in NS 100ml 100 ML IV PRN (07:11)
[2018-06-09] MEDS: pantoprazole 40 MG vial IV SCH (07:11)
[2018-06-09] MEDS: heparin, porcine 5000 units/ml vial SQ SCH ×2 (07:12→19:56)
[2018-06-09] MEDS: levetiracetam inj 500 MG in normal saline 100ml IV soln 95 ML IV SCH ×2 (07:12→19:49)
[2018-06-09] MEDS: K and/or MAG REPLACEMENT MC SCH (08:00)
[2018-06-09] MEDS ORDERED: thiamine 100mg tablet PO ONE (09:05)
[2018-06-09] MEDS ORDERED: folic acid 1mg tablet PO ONE (09:05)
[2018-06-09] MEDS: vancomycin inj 500 MG in normal saline 100ml IV soln 100 ML IV SCH ×2 (11:52→23:04)
[2018-06-09] MEDS: sodium bicarbonate (8.4%) inj. 150 MEQ in dextrose 5%-water 1,000 ML IV SCH (11:53)
[2018-06-09] MEDS: thiamine 100mg tablet PO SCH (19:56)
[2018-06-09] MEDS: atorvastatin 20mg tablet PO SCH (20:06)
[2018-06-10] VITALS (24 sets, daily range): BP systolic 109–163; BP diastolic 62–91
[2018-06-10] MEDS: sodium bicarbonate (8.4%) inj. 150 MEQ in dextrose 5%-water 1,000 ML IV SCH ×3 (01:31→23:45)
[2018-06-10] MEDS: methylPREDNISolone sod succ 125mg/2ml vial IV SCH ×4 (01:47→19:47)
[2018-06-10] MEDS: piperacillin-tazo 2.25gm/50ml 50 ML IV SCH ×4 (01:47→20:10)
[2018-06-10] MEDS: FENTANYL-0.9 % NACL/PF 100 ML IV PRN ×2 (01:47→17:54)
[2018-06-10] MEDS: mineral oil/petrolatum ophthal oint EACHEYE SCH ×4 (02:00→19:47)
[2018-06-10 02:47] LABS: BASOPHILS % (AUTO) 0 % (0-1); EOSINOPHILS # (AUTO) 0.1 X10'3 (0-0.9); EOSINOPHILS % (AUTO) 1.2 % (0-6); HEMATOCRIT 24.1 % (35.0-45.0); LYMPHOCYTES # (AUTO) 0.8 X10'3 (1.1-4.8); LYMPHOCYTES % (AUTO) 7.2 % (21-51); MEAN CORPUSCULAR HEMOGLOBIN 30.6 PG (27.0-31.0); MEAN CORPUSCULAR HGB CONC 33.4 % (33.0-36.5); MEAN CORPUSCULAR VOLUME 91.5 FL (78-98); MEAN PLATELET VOLUME 7.3 FL (7.4-10.4); MONOCYTES # (AUTO) 0.2 X10'3 (0-0.9); MONOCYTES % (AUTO) 2.2 % (2-12); NEUTROPHILS # (AUTO) 9.8 X10'3 (1.8-7.7); NEUTROPHILS % (AUTO) 89.4 % (42-75); PLATELET COUNT 329 X10'3 (140-440); RED BLOOD COUNT 2.63 X10'6 (4.20-5.60); RED CELL DISTRIBUTION WIDTH 17.4 % (11.5-14.5)
[2018-06-10 03:03] LABS: ALANINE AMINOTRANSFERASE 25 U/L (12-78); ALBUMIN 2.2 G/DL (3.4-5.0); ALBUMIN/GLOBULIN RATIO 0.6 (1.1-1.5); ALKALINE PHOSPHATASE 70 IU/L (46-116); ANION GAP 11 (8-16); ASPARTATE AMINO TRANSFERASE 15 U/L (10-37); BILIRUBIN,TOTAL 0.2 MG/DL (0.1-1.0); BLOOD UREA NITROGEN 16 MG/DL (7-18); BUN/CREATININE RATIO 18.6 (6.6-38.0); CALCIUM 7.7 MG/DL (8.5-10.1); CHLORIDE 111 MMOL/L (99-107); CREATININE 0.86 MG/DL (0.40-0.90); GLUCOSE 166 MG/DL (70-104); MAGNESIUM 1.5 MG/DL (1.5-2.4); POTASSIUM 3.9 MMOL/L (3.5-5.1); SODIUM 142 MMOL/L (135-145); TOTAL CARBON DIOXIDE 19.7 MMOL/L (24-32); TOTAL PROTEIN 5.7 G/DL (6.4-8.2); eGFR 65 ML/MIN
[2018-06-10] MEDS: ipratropium/albuterol 3ml nebule NEB SCH ×6 (03:14→23:06)
[2018-06-10 03:31] LABS: ABG HCO3 18.8 mmol/L (22.0-26.0); ABG OXYGEN SATURATION 92.4 % (95-98); ABG PCO2 (T) 29.9 mmHg (32.0-45.0); ABG PH (T) 7.414 (7.350-7.450); ABG PO2 (T) 63.3 mmHg (83-108); FCOHb 0.3 % (0.5-1.5); FMetHb 0.3 % (0.3-1.12); FO2Hb 91.8 % (94-100); MINUTE VOLUME 5 L/min; PATIENT TEMPERATURE 36.7; PEEP 5 cm H2O; RESPIRATORY RATE 14 b/min; RESPIRATORY RATE (OBSERVED) 16 b/min; TIDAL VOLUME 350 mL; TOTAL HEMOGLOBIN 9.5 G/dl (12.0-16.0)
[2018-06-10] MEDS: midazolam 100mg in NS 100ml 100 ML IV PRN (05:27)
[2018-06-10] MEDS: K and/or MAG REPLACEMENT MC SCH (08:00)
[2018-06-10] MEDS: metoprolol tartrate 12.5mg (1/2 tablet) PO SCH ×2 (08:00→19:47)
[2018-06-10] MEDS: pantoprazole 40 MG vial IV SCH (08:39)
[2018-06-10] MEDS: levetiracetam inj 500 MG in normal saline 100ml IV soln 95 ML IV SCH ×2 (08:40→19:46)
[2018-06-10] MEDS: aspirin 325mg tablet PO SCH (08:41)
[2018-06-10] MEDS: folic acid 1mg tablet PO SCH (08:41)
[2018-06-10] MEDS: lactobacillus rhamnosus 10,000 MMU CELLS/CAPSULE PO SCH ×2 (08:41→19:47)
[2018-06-10] MEDS: multivitamins, therapeutics tablet PO SCH (08:41)
[2018-06-10] MEDS: sodium phosphate inj. 15 MMOL in dextrose 5%-water 150 ML IV PRN (08:41)
[2018-06-10] MEDS: thiamine 100mg tablet PO SCH ×2 (08:42→19:47)
[2018-06-10] MEDS: heparin, porcine 5000 units/ml vial SQ SCH ×2 (08:42→19:47)
[2018-06-10] MEDS ORDERED: VANCOMYCIN LEVEL IV ONE ×2 (10:30→22:30)
[2018-06-10] MEDS: vancomycin inj 500 MG in normal saline 100ml IV soln 100 ML IV SCH ×2 (11:43→23:00)
[2018-06-10] MEDS: atorvastatin 20mg tablet PO SCH (19:47)
[2018-06-11] VITALS (24 sets, daily range): BP systolic 107–173; BP diastolic 65–104
[2018-06-11] MEDS: methylPREDNISolone sod succ 125mg/2ml vial IV SCH ×2 (02:00→07:49)
[2018-06-11] MEDS: mineral oil/petrolatum ophthal oint EACHEYE SCH ×4 (02:00→21:09)
[2018-06-11] MEDS: piperacillin-tazo 2.25gm/50ml 50 ML IV SCH ×4 (02:00→21:22)
[2018-06-11] MEDS ORDERED: dextrose 50%-water 50ml dispensing syringe IV PRN ×2 (02:40)
[2018-06-11] MEDS ORDERED: dextrose ORAL solution 15 GM/59 ML bottle PO PRN ×2 (02:40)
[2018-06-11 02:55] LABS: ALANINE AMINOTRANSFERASE 33 U/L (12-78); ALBUMIN 2.2 G/DL (3.4-5.0); ALBUMIN/GLOBULIN RATIO 0.7 (1.1-1.5); ALKALINE PHOSPHATASE 59 IU/L (46-116); ANION GAP 12 (8-16); ASPARTATE AMINO TRANSFERASE 17 U/L (10-37); BILIRUBIN,TOTAL 0.2 MG/DL (0.1-1.0); BLOOD UREA NITROGEN 17 MG/DL (7-18); CHLORIDE 106 MMOL/L (99-107); CREATININE 1.06 MG/DL (0.40-0.90); GLUCOSE 200 MG/DL (70-104); MAGNESIUM 1.3 MG/DL (1.5-2.4); PHOSPHORUS 1.6 MG/DL (2.3-4.5); SODIUM 142 MMOL/L (135-145); TOTAL CARBON DIOXIDE 24.2 MMOL/L (24-32); TOTAL PROTEIN 5.4 G/DL (6.4-8.2); eGFR 51 ML/MIN
[2018-06-11] MEDS ORDERED: insulin regular, human vial - multi-dose ONE (02:55)
[2018-06-11] MEDS: midazolam 100mg in NS 100ml 100 ML IV PRN (02:58)
[2018-06-11] MEDS ORDERED: potassium Cl 40MEQ/250ML bag 250 ML IV ONE (03:00)
[2018-06-11] MEDS: potassium Cl 40MEQ/250ML bag 250 ML IV PRN ×3 (03:11→20:56)
[2018-06-11] MEDS: ipratropium/albuterol 3ml nebule NEB SCH ×6 (03:14→22:59)
[2018-06-11 03:17] LABS: BASOPHILS % (AUTO) 0.2 % (0-1); EOSINOPHILS % (AUTO) 0 % (0-6); HEMATOCRIT 23.8 % (35.0-45.0); HEMOGLOBIN 7.9 g/dl (12.0-16.0); LYMPHOCYTES % (AUTO) 8.6 % (21-51); MEAN CORPUSCULAR HEMOGLOBIN 30.3 PG (27.0-31.0); MEAN CORPUSCULAR HGB CONC 33.1 % (33.0-36.5); MEAN CORPUSCULAR VOLUME 91.7 FL (78-98); MEAN PLATELET VOLUME 7.8 FL (7.4-10.4); MONOCYTES # (AUTO) 0.4 X10'3 (0-0.9); MONOCYTES % (AUTO) 3.3 % (2-12); NEUTROPHILS # (AUTO) 9.8 X10'3 (1.8-7.7); NEUTROPHILS % (AUTO) 87.9 % (42-75); PLATELET COUNT 331 X10'3 (140-440); RED CELL DISTRIBUTION WIDTH 16.9 % (11.5-14.5); WHITE BLOOD COUNT 11.2 X10'3 (4.5-11.0)
[2018-06-11] MEDS: insulin regular, human vial - multi-dose SQ SCH ×4 (03:29→20:36)
[2018-06-11 03:31] LABS: ABG BASE EXCESS 1.7 mmol/L (-2.0-3.0); ABG HCO3 23.9 mmol/L (22.0-26.0); ABG OXYGEN SATURATION 89.9 % (95-98); ABG PCO2 (T) 28.7 mmHg (32.0-45.0); ABG PH (T) 7.538 (7.350-7.450); ABG PO2 (T) 55.4 mmHg (83-108); FMetHb 0.3 % (0.3-1.12); FO2Hb 89.6 % (94-100); MINUTE VOLUME 6 L/min; PEEP 5 cm H2O; RESPIRATORY RATE 14 b/min; RESPIRATORY RATE (OBSERVED) 17 b/min; TIDAL VOLUME 350 mL; TOTAL HEMOGLOBIN 9.1 G/dl (12.0-16.0)
[2018-06-11] MEDS: magnesium 1gm/100ml D5W IVPB 100 ML IV PRN ×2 (03:54→16:26)
[2018-06-11] MEDS: pantoprazole 40 MG vial IV SCH (07:48)
[2018-06-11] MEDS: multivitamins, therapeutics tablet PO SCH (07:48)
[2018-06-11] MEDS: aspirin 325mg tablet PO SCH (07:48)
[2018-06-11] MEDS: metoprolol tartrate 12.5mg (1/2 tablet) PO SCH ×2 (07:48→20:39)
[2018-06-11] MEDS: lactobacillus rhamnosus 10,000 MMU CELLS/CAPSULE PO SCH ×2 (07:48→20:39)
[2018-06-11] MEDS: thiamine 100mg tablet PO SCH ×2 (07:49→20:39)
[2018-06-11] MEDS: heparin, porcine 5000 units/ml vial SQ SCH ×2 (07:49→20:40)
[2018-06-11] MEDS: folic acid 1mg tablet PO SCH (07:49)
[2018-06-11] MEDS: levetiracetam inj 500 MG in normal saline 100ml IV soln 95 ML IV SCH ×2 (07:50→20:40)
[2018-06-11] MEDS: FENTANYL-0.9 % NACL/PF 100 ML IV PRN (08:51)
[2018-06-11] MEDS: sodium phosphate inj. 15 MMOL in dextrose 5%-water 150 ML IV PRN ×2 (09:11→20:42)
[2018-06-11] MEDS: normal saline 1000ml 1,000 ML IV SCH (10:30)
[2018-06-11] MEDS: dexmedetomidin/NS 400mcg/100ml 100 ML IV SCH ×2 (10:54→22:09)
[2018-06-11] MEDS: vancomycin inj 500 MG in normal saline 100ml IV soln 100 ML IV SCH (11:08)
[2018-06-11] MEDS: methylPREDNISolone sod succ/PF 40mg inj. IV SCH ×2 (14:07→20:40)
[2018-06-11 20:04] LABS: PHOSPHORUS 1.7 MG/DL (2.3-4.5); POTASSIUM 3.1 MMOL/L (3.5-5.1)
[2018-06-11] MEDS: insulin glargine (Lantus) pen - multi-dose SQ SCH (20:37)
[2018-06-11] MEDS: atorvastatin 20mg tablet PO SCH (20:39)
[2018-06-12] VITALS (24 sets, daily range): BP systolic 108–160; BP diastolic 58–93
[2018-06-12] MEDS: piperacillin-tazo 2.25gm/50ml 50 ML IV SCH ×4 (01:24→20:13)
[2018-06-12] MEDS: mineral oil/petrolatum ophthal oint EACHEYE SCH ×4 (01:24→20:00)
[2018-06-12] MEDS: methylPREDNISolone sod succ/PF 40mg inj. IV SCH ×4 (01:24→19:55)
[2018-06-12] MEDS: midazolam 100mg in NS 100ml 100 ML IV PRN (01:33)
[2018-06-12] MEDS: insulin regular, human vial - multi-dose SQ SCH (01:38)
[2018-06-12 03:13] LABS: BASOPHILS % (AUTO) 0.1 % (0-1); EOSINOPHILS # (AUTO) 0.2 X10'3 (0-0.9); EOSINOPHILS % (AUTO) 1.3 % (0-6); HEMATOCRIT 24.9 % (35.0-45.0); HEMOGLOBIN 8.2 g/dl (12.0-16.0); LYMPHOCYTES # (AUTO) 1.1 X10'3 (1.1-4.8); LYMPHOCYTES % (AUTO) 9.5 % (21-51); MEAN CORPUSCULAR HEMOGLOBIN 30.4 PG (27.0-31.0); MEAN CORPUSCULAR HGB CONC 32.9 % (33.0-36.5); MEAN CORPUSCULAR VOLUME 92.4 FL (78-98); MEAN PLATELET VOLUME 7.6 FL (7.4-10.4); MONOCYTES # (AUTO) 0.6 X10'3 (0-0.9); MONOCYTES % (AUTO) 5.1 % (2-12); NEUTROPHILS # (AUTO) 9.6 X10'3 (1.8-7.7); PLATELET COUNT 303 X10'3 (140-440); RED CELL DISTRIBUTION WIDTH 17.2 % (11.5-14.5); WHITE BLOOD COUNT 11.5 X10'3 (4.5-11.0)
[2018-06-12] MEDS: ipratropium/albuterol 3ml nebule NEB SCH ×4 (03:27→20:20)
[2018-06-12 03:31] LABS: ALANINE AMINOTRANSFERASE 29 U/L (12-78); ALBUMIN 2.3 G/DL (3.4-5.0); ALBUMIN/GLOBULIN RATIO 0.7 (1.1-1.5); ALKALINE PHOSPHATASE 56 IU/L (46-116); ANION GAP 10 (8-16); ASPARTATE AMINO TRANSFERASE 13 U/L (10-37); BILIRUBIN,TOTAL 0.2 MG/DL (0.1-1.0); BLOOD UREA NITROGEN 18 MG/DL (7-18); BUN/CREATININE RATIO 20.2 (6.6-38.0); CALCIUM 7.8 MG/DL (8.5-10.1); CHLORIDE 106 MMOL/L (99-107); CREATININE 0.89 MG/DL (0.40-0.90); GLUCOSE 165 MG/DL (70-104); MAGNESIUM 2.5 MG/DL (1.5-2.4); PHOSPHORUS 3.1 MG/DL (2.3-4.5); POTASSIUM 3.3 MMOL/L (3.5-5.1); SODIUM 143 MMOL/L (135-145); TOTAL CARBON DIOXIDE 27.3 MMOL/L (24-32); TOTAL PROTEIN 5.5 G/DL (6.4-8.2); eGFR 63 ML/MIN
[2018-06-12 03:50] LABS: ABG BASE EXCESS 2.2 mmol/L (-2.0-3.0); ABG HCO3 25.6 mmol/L (22.0-26.0); ABG OXYGEN SATURATION 96.3 % (95-98); ABG PCO2 (T) 34.5 mmHg (32.0-45.0); ABG PH (T) 7.488 (7.350-7.450); ALLEN'S TEST Positive; FCOHb 0.3 % (0.5-1.5); FMetHb 0.3 % (0.3-1.12); FO2Hb 95.7 % (94-100); MINUTE VOLUME 5 L/min; PATIENT TEMPERATURE 36.9; PEEP 5 cm H2O; RESPIRATORY RATE 14 b/min; RESPIRATORY RATE (OBSERVED) 14 b/min; TIDAL VOLUME 350 mL; TOTAL HEMOGLOBIN 8.7 G/dl (12.0-16.0)
[2018-06-12] MEDS ORDERED: potassium Cl 40MEQ/250ML bag 250 ML IV ONE (04:42)
[2018-06-12] MEDS: potassium Cl 40MEQ/250ML bag 250 ML IV PRN (04:57)
[2018-06-12] MEDS: multivitamins, therapeutics tablet PO SCH (07:19)
[2018-06-12] MEDS: lactobacillus rhamnosus 10,000 MMU CELLS/CAPSULE PO SCH ×2 (07:19→20:06)
[2018-06-12] MEDS: folic acid 1mg tablet PO SCH (07:19)
[2018-06-12] MEDS: levetiracetam inj 500 MG in normal saline 100ml IV soln 95 ML IV SCH ×2 (07:20→19:55)
[2018-06-12] MEDS: thiamine 100mg tablet PO SCH ×2 (07:20→20:06)
[2018-06-12] MEDS: pantoprazole 40 MG vial IV SCH (07:20)
[2018-06-12] MEDS: metoprolol tartrate 12.5mg (1/2 tablet) PO SCH ×2 (07:24→20:06)
[2018-06-12] MEDS: heparin, porcine 5000 units/ml vial SQ SCH ×2 (07:25→20:05)
[2018-06-12] MEDS: methylnaltrexone br 12mg/0.6ml inj***SubQ only SQ SCH (07:25)
[2018-06-12] MEDS: aspirin 325mg tablet PO SCH (07:40)
[2018-06-12] MEDS: HYDROcodone/acetaminophen 10/325mg tab PO PRN ×3 (07:40→20:07)
[2018-06-12] MEDS ORDERED: racepinephrine 11.25mg/0.5ml nebule NEB PRN (10:25)
[2018-06-12] MEDS ORDERED: ipratropium/albuterol 3ml nebule NEB PRN (10:25)
[2018-06-12] MEDS: dexmedetomidin/NS 400mcg/100ml 100 ML IV SCH (12:02)
[2018-06-12] MEDS: normal saline 1000ml 1,000 ML IV SCH (12:03)
[2018-06-12] MEDS: atorvastatin 20mg tablet PO SCH (20:06)
[2018-06-12] MEDS: insulin glargine (Lantus) pen - multi-dose SQ SCH (20:18)
[2018-06-13] VITALS (20 sets, daily range): BP systolic 110–172; BP diastolic 60–108
[2018-06-13] MEDS: HYDROcodone/acetaminophen 10/325mg tab PO PRN ×2 (00:56→04:50)
[2018-06-13] MEDS: hyoscyamine 0.125mg TAB.SUBL SL PRN (01:07)
[2018-06-13] MEDS: mineral oil/petrolatum ophthal oint EACHEYE SCH ×3 (02:00→14:00)
[2018-06-13] MEDS: piperacillin-tazo 2.25gm/50ml 50 ML IV SCH ×4 (02:10→20:23)
[2018-06-13] MEDS: methylPREDNISolone sod succ/PF 40mg inj. IV SCH ×4 (02:10→20:22)
[2018-06-13 02:59] LABS: BASOPHILS % (AUTO) 0.2 % (0-1); EOSINOPHILS # (AUTO) 0.1 X10'3 (0-0.9); EOSINOPHILS % (AUTO) 0.7 % (0-6); HEMATOCRIT 23.9 % (35.0-45.0); HEMOGLOBIN 7.9 g/dl (12.0-16.0); LYMPHOCYTES # (AUTO) 2.7 X10'3 (1.1-4.8); LYMPHOCYTES % (AUTO) 19.8 % (21-51); MEAN CORPUSCULAR HEMOGLOBIN 30.6 PG (27.0-31.0); MEAN CORPUSCULAR HGB CONC 32.8 % (33.0-36.5); MEAN CORPUSCULAR VOLUME 93.3 FL (78-98); MEAN PLATELET VOLUME 8.1 FL (7.4-10.4); MONOCYTES # (AUTO) 0.3 X10'3 (0-0.9); NEUTROPHILS # (AUTO) 10.7 X10'3 (1.8-7.7); NEUTROPHILS % (AUTO) 77.3 % (42-75); PLATELET COUNT 294 X10'3 (140-440); RED BLOOD COUNT 2.56 X10'6 (4.20-5.60); RED CELL DISTRIBUTION WIDTH 17.5 % (11.5-14.5); WHITE BLOOD COUNT 13.8 X10'3 (4.5-11.0)
[2018-06-13] MEDS: ipratropium/albuterol 3ml nebule NEB SCH ×2 (03:18→07:19)
[2018-06-13 03:21] LABS: ALANINE AMINOTRANSFERASE 25 U/L (12-78); ALBUMIN 2.2 G/DL (3.4-5.0); ALBUMIN/GLOBULIN RATIO 0.7 (1.1-1.5); ALKALINE PHOSPHATASE 47 IU/L (46-116); ANION GAP 5 (8-16); ASPARTATE AMINO TRANSFERASE 11 U/L (10-37); BILIRUBIN,TOTAL 0.2 MG/DL (0.1-1.0); BLOOD UREA NITROGEN 19 MG/DL (7-18); BUN/CREATININE RATIO 16.2 (6.6-38.0); CALCIUM 8.4 MG/DL (8.5-10.1); CHLORIDE 106 MMOL/L (99-107); CREATININE 1.17 MG/DL (0.40-0.90); GLUCOSE 89 MG/DL (70-104); MAGNESIUM 1.8 MG/DL (1.5-2.4); PHOSPHORUS 3.9 MG/DL (2.3-4.5); POTASSIUM 4.3 MMOL/L (3.5-5.1); PREALBUMIN 21.1 MG/DL (19-36); SODIUM 139 MMOL/L (135-145); TOTAL CARBON DIOXIDE 28.5 MMOL/L (24-32); TOTAL PROTEIN 5.2 G/DL (6.4-8.2); eGFR 46 ML/MIN
[2018-06-13] MEDS: ondansetron/PF 4mg/2ml inj IV PRN (04:22)
[2018-06-13] MEDS: pantoprazole 40 MG vial IV SCH (08:58)
[2018-06-13] MEDS: levetiracetam inj 500 MG in normal saline 100ml IV soln 95 ML IV SCH ×2 (08:58→20:23)
[2018-06-13] MEDS: folic acid 1mg tablet PO SCH (08:59)
[2018-06-13] MEDS: lactobacillus rhamnosus 10,000 MMU CELLS/CAPSULE PO SCH ×2 (08:59→20:23)
[2018-06-13] MEDS: thiamine 100mg tablet PO SCH ×2 (08:59→20:22)
[2018-06-13] MEDS: aspirin 325mg tablet PO SCH (08:59)
[2018-06-13] MEDS: heparin, porcine 5000 units/ml vial SQ SCH ×2 (08:59→20:23)
[2018-06-13] MEDS: multivitamins, therapeutics tablet PO SCH (08:59)
[2018-06-13] MEDS: metoprolol tartrate 12.5mg (1/2 tablet) PO SCH ×2 (08:59→20:23)
[2018-06-13] MEDS: normal saline 1000ml 1,000 ML IV SCH (10:27)
[2018-06-13] MEDS: atorvastatin 20mg tablet PO SCH (20:23)
[2018-06-13] MEDS: insulin glargine (Lantus) pen - multi-dose SQ SCH (21:00)
[2018-06-14] VITALS (17 sets, daily range): BP systolic 117–173; BP diastolic 62–115
[2018-06-14 02:35] LABS: BASOPHILS # (AUTO) 0.1 X10'3 (0-0.2); BASOPHILS % (AUTO) 0.7 % (0-1); EOSINOPHILS # (AUTO) 0.3 X10'3 (0-0.9); EOSINOPHILS % (AUTO) 1.4 % (0-6); HEMATOCRIT 24.3 % (35.0-45.0); LYMPHOCYTES # (AUTO) 3.3 X10'3 (1.1-4.8); LYMPHOCYTES % (AUTO) 16.9 % (21-51); MEAN CORPUSCULAR HEMOGLOBIN 30.4 PG (27.0-31.0); MEAN CORPUSCULAR VOLUME 92.2 FL (78-98); MEAN PLATELET VOLUME 6.9 FL (7.4-10.4); MONOCYTES # (AUTO) 0.6 X10'3 (0-0.9); MONOCYTES % (AUTO) 3.1 % (2-12); NEUTROPHILS % (AUTO) 77.9 % (42-75); PLATELET COUNT 387 X10'3 (140-440); RED BLOOD COUNT 2.64 X10'6 (4.20-5.60); RED CELL DISTRIBUTION WIDTH 17.1 % (11.5-14.5); WHITE BLOOD COUNT 19.2 X10'3 (4.5-11.0)
[2018-06-14] MEDS: methylPREDNISolone sod succ/PF 40mg inj. IV SCH ×4 (02:38→21:01)
[2018-06-14] MEDS: piperacillin-tazo 2.25gm/50ml 50 ML IV SCH ×4 (02:39→21:01)
[2018-06-14] MEDS: ondansetron/PF 4mg/2ml inj IV PRN (02:41)
[2018-06-14 02:47] LABS: ALBUMIN 2.5 G/DL (3.4-5.0); ANION GAP 7 (8-16); BLOOD UREA NITROGEN 22 MG/DL (7-18); BUN/CREATININE RATIO 21.4 (6.6-38.0); CALCIUM 8.7 MG/DL (8.5-10.1); CHLORIDE 106 MMOL/L (99-107); CREATININE 1.03 MG/DL (0.40-0.90); GLUCOSE 87 MG/DL (70-104); MAGNESIUM 1.8 MG/DL (1.5-2.4); PHOSPHORUS 4.4 MG/DL (2.3-4.5); POTASSIUM 3.9 MMOL/L (3.5-5.1); SODIUM 143 MMOL/L (135-145); TOTAL CARBON DIOXIDE 29.7 MMOL/L (24-32); eGFR 53 ML/MIN
[2018-06-14] MEDS: HYDROcodone/acetaminophen 10/325mg tab PO PRN (05:31)
[2018-06-14] MEDS: multivitamins, therapeutics tablet PO SCH (07:26)
[2018-06-14] MEDS: metoprolol tartrate 12.5mg (1/2 tablet) PO SCH (07:26)
[2018-06-14] MEDS: thiamine 100mg tablet PO SCH ×2 (07:26→20:30)
[2018-06-14] MEDS: lactobacillus rhamnosus 10,000 MMU CELLS/CAPSULE PO SCH ×2 (07:26→21:01)
[2018-06-14] MEDS: pantoprazole 40 MG vial IV SCH (07:26)
[2018-06-14] MEDS: folic acid 1mg tablet PO SCH (07:26)
[2018-06-14] MEDS: levetiracetam inj 500 MG in normal saline 100ml IV soln 95 ML IV SCH ×2 (07:27→20:31)
[2018-06-14] MEDS: heparin, porcine 5000 units/ml vial SQ SCH ×2 (07:28→20:31)
[2018-06-14] MEDS: aspirin 325mg tablet PO SCH (07:42)
[2018-06-14] MEDS: methylnaltrexone br 12mg/0.6ml inj***SubQ only SQ SCH (08:00)
[2018-06-14] MEDS ORDERED: LORazepam 2 mg/ml vial IV PRN ×2 (10:40)
[2018-06-14] MEDS ORDERED: gadopentetate dimeglumine 5 mmol/10ml vial IV ONE (10:45)
[2018-06-14] MEDS ORDERED: ondansetron 4mg rapidly disintigrating tab PO PRN (10:50)
[2018-06-14] MEDS ORDERED: HYDROchlorothiazide 25mg tablet PO ONE (11:15)
[2018-06-14] MEDS ORDERED: amLODIPine 5mg tablet PO ONE (11:15)
[2018-06-14] MEDS: mesalamine 1.2gm ER tablet PO SCH (12:17)
[2018-06-14] MEDS: normal saline 1000ml 1,000 ML IV SCH (13:00)
[2018-06-14] MEDS: gabapentin 400mg capsule PO SCH (16:00)
[2018-06-14] MEDS ORDERED: gadopentetate dimeglumine 7.5 MMOL/15 ML syringe ONE (16:25)
[2018-06-14 18:28] LABS: OCCULT BLOOD STOOL POSITIVE (Neg)
[2018-06-14] MEDS: atorvastatin 20mg tablet PO SCH (20:30)
[2018-06-14] MEDS: traZODone 50mg tablet PO SCH (20:30)
[2018-06-14] MEDS: amLODIPine 5mg tablet PO SCH (20:31)
[2018-06-14] MEDS: HYDROchlorothiazide 25mg tablet PO SCH (20:31)
[2018-06-14] MEDS: docusate sod 100mg capsule PO SCH (20:31)
[2018-06-14] MEDS: insulin glargine (Lantus) pen - multi-dose SQ SCH (21:00)
[2018-06-14] MEDS: metoprolol tartrate 25mg tablet PO SCH (21:01)
[2018-06-14] MEDS: oxybutynin 5mg tablet PO SCH (21:01)
[2018-06-15] VITALS (9 sets, daily range): BP systolic 84–115; BP diastolic 38–62
[2018-06-15] MEDS: gabapentin 400mg capsule PO SCH ×3 (00:44→16:45)
[2018-06-15] MEDS: HYDROcodone/acetaminophen 10/325mg tab PO PRN (00:44)
[2018-06-15] MEDS: piperacillin-tazo 2.25gm/50ml 50 ML IV SCH ×2 (01:54→07:14)
[2018-06-15] MEDS: methylPREDNISolone sod succ/PF 40mg inj. IV SCH ×4 (01:57→19:44)
[2018-06-15 06:24] LABS: MAGNESIUM 1.6 MG/DL (1.5-2.4)
[2018-06-15] MEDS: levetiracetam inj 500 MG in normal saline 100ml IV soln 95 ML IV SCH ×2 (07:14→20:36)
[2018-06-15] MEDS ORDERED: non-formulary drug (Omeprazole 1 TAB) PO SCH (08:00)
[2018-06-15] MEDS: mesalamine 1.2gm ER tablet PO SCH (08:00)
[2018-06-15] MEDS: oxybutynin 5mg tablet PO SCH ×2 (08:00→19:43)
[2018-06-15] MEDS: thiamine 100mg tablet PO SCH ×2 (08:26→19:43)
[2018-06-15] MEDS: pantoprazole 40 MG vial IV SCH (08:26)
[2018-06-15] MEDS: lactobacillus rhamnosus 10,000 MMU CELLS/CAPSULE PO SCH ×2 (08:27→19:43)
[2018-06-15] MEDS: amLODIPine 5mg tablet PO SCH (08:27)
[2018-06-15] MEDS: multivitamins, therapeutics tablet PO SCH (08:27)
[2018-06-15] MEDS: folic acid 1mg tablet PO SCH (08:27)
[2018-06-15] MEDS: aspirin 325mg tablet PO SCH (08:27)
[2018-06-15] MEDS: metoprolol tartrate 25mg tablet PO SCH (08:27)
[2018-06-15] MEDS: HYDROchlorothiazide 25mg tablet PO SCH (08:29)
[2018-06-15] MEDS: heparin, porcine 5000 units/ml vial SQ SCH ×2 (08:30→19:45)
[2018-06-15] MEDS: normal saline 1000ml 1,000 ML IV SCH (14:00)
[2018-06-15] MEDS: vancomcyin 250mg capsules PO SCH ×2 (14:00→19:43)
[2018-06-15] MEDS ORDERED: normal saline 1000ml 1,000 ML IV ONE (15:55)
[2018-06-15] MEDS: HYDROcodone/acetaminophen 5mg/325mg tablet PO PRN (18:42)
[2018-06-15] MEDS: traZODone 50mg tablet PO SCH (19:43)
[2018-06-15] MEDS: atorvastatin 20mg tablet PO SCH (19:43)
[2018-06-15] MEDS: docusate sod 100mg capsule PO SCH (19:43)
[2018-06-15] MEDS: insulin glargine (Lantus) pen - multi-dose SQ SCH (21:00)
[2018-06-16] MEDS: gabapentin 400mg capsule PO SCH ×3 (00:43→14:56)
[2018-06-16] MEDS: methylPREDNISolone sod succ/PF 40mg inj. IV SCH ×2 (02:33→08:52)
[2018-06-16] MEDS: vancomcyin 250mg capsules PO SCH ×4 (02:33→20:08)
[2018-06-16 03:00] VITALS: BP 142/69
[2018-06-16] MEDS: normal saline 1000ml 1,000 ML IV SCH (04:12)
[2018-06-16] MEDS: HYDROcodone/acetaminophen 10/325mg tab PO PRN ×3 (05:07→13:47)
[2018-06-16 05:40] LABS: BASOPHILS % (AUTO) 0 % (0-1); EOSINOPHILS # (AUTO) 0.4 X10'3 (0-0.9); EOSINOPHILS % (AUTO) 2.2 % (0-6); LYMPHOCYTES # (AUTO) 1.4 X10'3 (1.1-4.8); LYMPHOCYTES % (AUTO) 8.6 % (21-51); MEAN CORPUSCULAR HEMOGLOBIN 30.3 PG (27.0-31.0); MEAN CORPUSCULAR HGB CONC 32.7 % (33.0-36.5); MEAN CORPUSCULAR VOLUME 92.5 FL (78-98); MEAN PLATELET VOLUME 7.7 FL (7.4-10.4); MONOCYTES # (AUTO) 0.3 X10'3 (0-0.9); NEUTROPHILS # (AUTO) 14.5 X10'3 (1.8-7.7); NEUTROPHILS % (AUTO) 87.2 % (42-75); PLATELET COUNT 348 X10'3 (140-440); RED BLOOD COUNT 2.09 X10'6 (4.20-5.60); RED CELL DISTRIBUTION WIDTH 16.5 % (11.5-14.5); WHITE BLOOD COUNT 16.7 X10'3 (4.5-11.0)
[2018-06-16 05:45] LABS: HEMATOCRIT 19.4 % (35.0-45.0); HEMOGLOBIN 6.3 g/dl (12.0-16.0)
[2018-06-16 06:00] VITALS: BP 131/70
[2018-06-16 06:19] LABS: ALANINE AMINOTRANSFERASE 19 U/L (12-78); ALBUMIN 2.3 G/DL (3.4-5.0); ALBUMIN/GLOBULIN RATIO 0.8 (1.1-1.5); ALKALINE PHOSPHATASE 43 IU/L (46-116); ANION GAP 10 (8-16); ASPARTATE AMINO TRANSFERASE 10 U/L (10-37); BILIRUBIN,TOTAL 0.1 MG/DL (0.1-1.0); BLOOD UREA NITROGEN 26 MG/DL (7-18); CALCIUM 8.3 MG/DL (8.5-10.1); CHLORIDE 106 MMOL/L (99-107); CREATININE 1.18 MG/DL (0.40-0.90); GLUCOSE 174 MG/DL (70-104); MAGNESIUM 1.5 MG/DL (1.5-2.4); POTASSIUM 3.4 MMOL/L (3.5-5.1); PREALBUMIN 25.6 MG/DL (19-36); SODIUM 139 MMOL/L (135-145); TOTAL CARBON DIOXIDE 23.1 MMOL/L (24-32); TOTAL PROTEIN 5.3 G/DL (6.4-8.2); eGFR 45 ML/MIN
[2018-06-16] MEDS: methylnaltrexone br 12mg/0.6ml inj***SubQ only SQ SCH (08:00)
[2018-06-16] MEDS: potassium Cl 20 mEq SR tablet PO PRN ×3 (08:52→20:08)
[2018-06-16] MEDS: aspirin 325mg tablet PO SCH (08:52)
[2018-06-16] MEDS: lactobacillus rhamnosus 10,000 MMU CELLS/CAPSULE PO SCH ×2 (08:52→20:08)
[2018-06-16] MEDS: pantoprazole 40 MG vial IV SCH (08:52)
[2018-06-16] MEDS: thiamine 100mg tablet PO SCH ×2 (08:52→20:08)
[2018-06-16] MEDS: folic acid 1mg tablet PO SCH (08:53)
[2018-06-16] MEDS: multivitamins, therapeutics tablet PO SCH (08:53)
[2018-06-16] MEDS: oxybutynin 5mg tablet PO SCH ×2 (08:53→20:09)
[2018-06-16] MEDS: heparin, porcine 5000 units/ml vial SQ SCH ×2 (08:53→20:09)
[2018-06-16] MEDS: mesalamine 1.2gm ER tablet PO SCH (08:53)
[2018-06-16] MEDS: levetiracetam inj 500 MG in normal saline 100ml IV soln 95 ML IV SCH ×2 (08:54→20:07)
[2018-06-16 11:00] VITALS: BP 120/72
[2018-06-16] MEDS ORDERED: LORazepam 0.5 MG tablet PO PRN (13:45)
[2018-06-16] MEDS ORDERED: morphine 2 MG/ML inj. syringe IV PRN (13:45)
[2018-06-16] MEDS ORDERED: morphine 2 MG/ML inj. syringe ONE (13:45)
[2018-06-16 15:00] VITALS: BP 120/77
[2018-06-16 15:19] LABS: BASOPHILS % (AUTO) 0.2 % (0-1); EOSINOPHILS # (AUTO) 0.4 X10'3 (0-0.9); EOSINOPHILS % (AUTO) 1.5 % (0-6); HEMOGLOBIN 7.2 g/dl (12.0-16.0); LYMPHOCYTES # (AUTO) 2.1 X10'3 (1.1-4.8); LYMPHOCYTES % (AUTO) 8.9 % (21-51); MEAN CORPUSCULAR HEMOGLOBIN 30.1 PG (27.0-31.0); MEAN CORPUSCULAR HGB CONC 32.6 % (33.0-36.5); MEAN CORPUSCULAR VOLUME 92.4 FL (78-98); MEAN PLATELET VOLUME 7.5 FL (7.4-10.4); MONOCYTES # (AUTO) 0.7 X10'3 (0-0.9); MONOCYTES % (AUTO) 3.1 % (2-12); NEUTROPHILS # (AUTO) 20.3 X10'3 (1.8-7.7); NEUTROPHILS % (AUTO) 86.3 % (42-75); PLATELET COUNT 424 X10'3 (140-440); RED BLOOD COUNT 2.38 X10'6 (4.20-5.60); RED CELL DISTRIBUTION WIDTH 16.7 % (11.5-14.5); WHITE BLOOD COUNT 23.5 X10'3 (4.5-11.0)
[2018-06-16 19:00] VITALS: BP 120/71
[2018-06-16] MEDS: traZODone 50mg tablet PO SCH (20:08)
[2018-06-16] MEDS: atorvastatin 20mg tablet PO SCH (20:09)
[2018-06-16] MEDS: docusate sod 100mg capsule PO SCH (20:09)
[2018-06-16] MEDS: insulin glargine (Lantus) pen - multi-dose SQ SCH (21:00)
[2018-06-16 23:00] VITALS: BP 106/69
[2018-06-17] MEDS: gabapentin 400mg capsule PO SCH ×4 (01:27→23:17)
[2018-06-17] MEDS: vancomcyin 250mg capsules PO SCH ×4 (01:27→19:54)
[2018-06-17 03:00] VITALS: BP 107/69
[2018-06-17 05:20] LABS: BASOPHILS % (AUTO) 0.2 % (0-1); EOSINOPHILS # (AUTO) 0.4 X10'3 (0-0.9); EOSINOPHILS % (AUTO) 2.1 % (0-6); HEMATOCRIT 22.1 % (35.0-45.0); HEMOGLOBIN 7.2 g/dl (12.0-16.0); LYMPHOCYTES # (AUTO) 6.5 X10'3 (1.1-4.8); LYMPHOCYTES % (AUTO) 31.6 % (21-51); MEAN CORPUSCULAR HEMOGLOBIN 30.3 PG (27.0-31.0); MEAN CORPUSCULAR HGB CONC 32.5 % (33.0-36.5); MEAN CORPUSCULAR VOLUME 93.2 FL (78-98); MEAN PLATELET VOLUME 7.5 FL (7.4-10.4); MONOCYTES # (AUTO) 0.8 X10'3 (0-0.9); MONOCYTES % (AUTO) 3.7 % (2-12); NEUTROPHILS # (AUTO) 12.9 X10'3 (1.8-7.7); NEUTROPHILS % (AUTO) 62.4 % (42-75); PLATELET COUNT 419 X10'3 (140-440); RED BLOOD COUNT 2.37 X10'6 (4.20-5.60); RED CELL DISTRIBUTION WIDTH 16.6 % (11.5-14.5); WHITE BLOOD COUNT 20.7 X10'3 (4.5-11.0)
[2018-06-17 05:43] LABS: ALANINE AMINOTRANSFERASE 21 U/L (12-78); ALBUMIN 2.4 G/DL (3.4-5.0); ALBUMIN/GLOBULIN RATIO 0.8 (1.1-1.5); ALKALINE PHOSPHATASE 39 IU/L (46-116); ANION GAP 7 (8-16); ASPARTATE AMINO TRANSFERASE 12 U/L (10-37); BILIRUBIN,TOTAL 0.2 MG/DL (0.1-1.0); BLOOD UREA NITROGEN 29 MG/DL (7-18); BUN/CREATININE RATIO 26.1 (6.6-38.0); CALCIUM 8.9 MG/DL (8.5-10.1); CHLORIDE 110 MMOL/L (99-107); CREATININE 1.11 MG/DL (0.40-0.90); GLUCOSE 83 MG/DL (70-104); MAGNESIUM 1.5 MG/DL (1.5-2.4); PHOSPHORUS 2.8 MG/DL (2.3-4.5); POTASSIUM 4.1 MMOL/L (3.5-5.1); SODIUM 140 MMOL/L (135-145); TOTAL CARBON DIOXIDE 23.4 MMOL/L (24-32); TOTAL PROTEIN 5.6 G/DL (6.4-8.2); eGFR 48 ML/MIN
[2018-06-17 06:00] VITALS: BP 115/65
[2018-06-17] MEDS: folic acid 1mg tablet PO SCH (07:06)
[2018-06-17] MEDS: mesalamine 1.2gm ER tablet PO SCH (07:07)
[2018-06-17] MEDS: lactobacillus rhamnosus 10,000 MMU CELLS/CAPSULE PO SCH ×2 (07:07→19:54)
[2018-06-17] MEDS: heparin, porcine 5000 units/ml vial SQ SCH ×2 (07:07→19:54)
[2018-06-17] MEDS: thiamine 100mg tablet PO SCH ×2 (07:07→19:54)
[2018-06-17] MEDS: aspirin 325mg tablet PO SCH (07:07)
[2018-06-17] MEDS: oxybutynin 5mg tablet PO SCH ×2 (07:07→19:54)
[2018-06-17] MEDS: pantoprazole 40 MG vial IV SCH (07:08)
[2018-06-17] MEDS: HYDROcodone/acetaminophen 5mg/325mg tablet PO PRN ×2 (07:08→12:12)
[2018-06-17] MEDS: multivitamins, therapeutics tablet PO SCH (07:16)
[2018-06-17] MEDS: levetiracetam inj 500 MG in normal saline 100ml IV soln 95 ML IV SCH ×2 (07:17→19:53)
[2018-06-17 10:58] LABS: CRYPTOSPORIDIUM AG NEGATIVE (Neg); GIARDIA LAMBLIA AG NEGATIVE (Neg)
[2018-06-17 11:00] VITALS: BP 116/65
[2018-06-17 15:00] VITALS: BP 114/61
[2018-06-17 19:00] VITALS: BP 92/59
[2018-06-17] MEDS: insulin glargine (Lantus) pen - multi-dose SQ SCH (19:41)
[2018-06-17] MEDS: docusate sod 100mg capsule PO SCH (19:42)
[2018-06-17] MEDS: atorvastatin 20mg tablet PO SCH (20:00)
[2018-06-17] MEDS: traZODone 50mg tablet PO SCH (20:00)
[2018-06-17 23:00] VITALS: BP 91/47
[2018-06-18] MEDS: vancomcyin 250mg capsules PO SCH ×4 (02:41→20:00)
[2018-06-18 03:00] VITALS: BP 114/68
[2018-06-18] MEDS: HYDROcodone/acetaminophen 5mg/325mg tablet PO PRN (05:04)
[2018-06-18 05:40] LABS: BASOPHILS % (AUTO) 0.2 % (0-1); EOSINOPHILS # (AUTO) 0.3 X10'3 (0-0.9); EOSINOPHILS % (AUTO) 2.3 % (0-6); HEMATOCRIT 22.5 % (35.0-45.0); HEMOGLOBIN 7.3 g/dl (12.0-16.0); LYMPHOCYTES # (AUTO) 4.8 X10'3 (1.1-4.8); LYMPHOCYTES % (AUTO) 33.4 % (21-51); MEAN CORPUSCULAR HEMOGLOBIN 30.3 PG (27.0-31.0); MEAN CORPUSCULAR HGB CONC 32.6 % (33.0-36.5); MEAN CORPUSCULAR VOLUME 92.7 FL (78-98); MEAN PLATELET VOLUME 7.6 FL (7.4-10.4); MONOCYTES # (AUTO) 0.6 X10'3 (0-0.9); MONOCYTES % (AUTO) 4.1 % (2-12); NEUTROPHILS # (AUTO) 8.5 X10'3 (1.8-7.7); PLATELET COUNT 379 X10'3 (140-440); RED BLOOD COUNT 2.43 X10'6 (4.20-5.60); RED CELL DISTRIBUTION WIDTH 17.1 % (11.5-14.5); WHITE BLOOD COUNT 14.2 X10'3 (4.5-11.0)
[2018-06-18 06:00] VITALS: BP 109/64
[2018-06-18 06:09] LABS: ALANINE AMINOTRANSFERASE 18 U/L (12-78); ALBUMIN 2.4 G/DL (3.4-5.0); ALBUMIN/GLOBULIN RATIO 0.8 (1.1-1.5); ALKALINE PHOSPHATASE 42 IU/L (46-116); ANION GAP 7 (8-16); ASPARTATE AMINO TRANSFERASE 13 U/L (10-37); BILIRUBIN,TOTAL 0.2 MG/DL (0.1-1.0); BLOOD UREA NITROGEN 29 MG/DL (7-18); BUN/CREATININE RATIO 23.8 (6.6-38.0); CALCIUM 8.6 MG/DL (8.5-10.1); CHLORIDE 110 MMOL/L (99-107); CREATININE 1.22 MG/DL (0.40-0.90); GLUCOSE 99 MG/DL (70-104); MAGNESIUM 1.4 MG/DL (1.5-2.4); PHOSPHORUS 3.6 MG/DL (2.3-4.5); POTASSIUM 3.8 MMOL/L (3.5-5.1); SODIUM 142 MMOL/L (135-145); TOTAL CARBON DIOXIDE 25.3 MMOL/L (24-32); TOTAL PROTEIN 5.4 G/DL (6.4-8.2); eGFR 43 ML/MIN
[2018-06-18] MEDS: thiamine 100mg tablet PO SCH ×2 (07:52→20:00)
[2018-06-18] MEDS: gabapentin 400mg capsule PO SCH ×2 (07:52→15:48)
[2018-06-18] MEDS: mesalamine 1.2gm ER tablet PO SCH (07:52)
[2018-06-18] MEDS: folic acid 1mg tablet PO SCH (07:52)
[2018-06-18] MEDS: oxybutynin 5mg tablet PO SCH ×2 (07:52→20:00)
[2018-06-18] MEDS: lactobacillus rhamnosus 10,000 MMU CELLS/CAPSULE PO SCH ×2 (07:52→20:01)
[2018-06-18] MEDS: aspirin 325mg tablet PO SCH (07:52)
[2018-06-18] MEDS: multivitamins, therapeutics tablet PO SCH (07:52)
[2018-06-18] MEDS: levetiracetam inj 500 MG in normal saline 100ml IV soln 95 ML IV SCH ×2 (07:53→20:01)
[2018-06-18] MEDS: heparin, porcine 5000 units/ml vial SQ SCH ×2 (07:53→20:01)
[2018-06-18] MEDS: pantoprazole 40 MG vial IV SCH (07:53)
[2018-06-18] MEDS: methylnaltrexone br 12mg/0.6ml inj***SubQ only SQ SCH (08:00)
[2018-06-18] MEDS: HYDROcodone/acetaminophen 10/325mg tab PO PRN ×2 (09:39→15:49)
[2018-06-18 11:00] VITALS: BP 103/71
[2018-06-18 19:00] VITALS: BP 117/71
[2018-06-18] MEDS: atorvastatin 20mg tablet PO SCH (20:00)
[2018-06-18] MEDS: traZODone 50mg tablet PO SCH (20:00)
[2018-06-18] MEDS: docusate sod 100mg capsule PO SCH (20:01)
[2018-06-18] MEDS: insulin glargine (Lantus) pen - multi-dose SQ SCH (20:01)
[2018-06-18 23:00] VITALS: BP 105/60
[2018-06-19] VITALS (15 sets, daily range): BP systolic 90–112; BP diastolic 52–71
[2018-06-19] MEDS: gabapentin 400mg capsule PO SCH ×3 (01:02→15:58)
[2018-06-19] MEDS: vancomcyin 250mg capsules PO SCH ×4 (01:02→19:37)
[2018-06-19 05:48] LABS: BASOPHILS % (AUTO) 0.3 % (0-1); EOSINOPHILS # (AUTO) 0.3 X10'3 (0-0.9); EOSINOPHILS % (AUTO) 2.5 % (0-6); LYMPHOCYTES # (AUTO) 3.3 X10'3 (1.1-4.8); LYMPHOCYTES % (AUTO) 25.7 % (21-51); MEAN CORPUSCULAR HEMOGLOBIN 30.2 PG (27.0-31.0); MEAN CORPUSCULAR HGB CONC 32.7 % (33.0-36.5); MEAN CORPUSCULAR VOLUME 92.6 FL (78-98); MEAN PLATELET VOLUME 7.7 FL (7.4-10.4); MONOCYTES # (AUTO) 0.6 X10'3 (0-0.9); MONOCYTES % (AUTO) 4.4 % (2-12); NEUTROPHILS # (AUTO) 8.7 X10'3 (1.8-7.7); NEUTROPHILS % (AUTO) 67.1 % (42-75); PLATELET COUNT 390 X10'3 (140-440); RED BLOOD COUNT 2.31 X10'6 (4.20-5.60); RED CELL DISTRIBUTION WIDTH 16.7 % (11.5-14.5); WHITE BLOOD COUNT 12.9 X10'3 (4.5-11.0)
[2018-06-19 06:03] LABS: HEMATOCRIT 21.4 % (35.0-45.0)
[2018-06-19] MEDS: pantoprazole 40 MG vial IV SCH (07:59)
[2018-06-19] MEDS: lactobacillus rhamnosus 10,000 MMU CELLS/CAPSULE PO SCH ×2 (08:00→19:36)
[2018-06-19] MEDS: folic acid 1mg tablet PO SCH (08:00)
[2018-06-19] MEDS: mesalamine 1.2gm ER tablet PO SCH (08:00)
[2018-06-19] MEDS: heparin, porcine 5000 units/ml vial SQ SCH ×2 (08:00→19:37)
[2018-06-19] MEDS: oxybutynin 5mg tablet PO SCH ×2 (08:00→19:36)
[2018-06-19] MEDS: thiamine 100mg tablet PO SCH ×2 (08:00→19:37)
[2018-06-19] MEDS: multivitamins, therapeutics tablet PO SCH (08:00)
[2018-06-19] MEDS: aspirin 325mg tablet PO SCH (08:00)
[2018-06-19] MEDS: HYDROcodone/acetaminophen 5mg/325mg tablet PO PRN ×3 (08:01→22:09)
[2018-06-19] MEDS: levetiracetam inj 500 MG in normal saline 100ml IV soln 95 ML IV SCH ×3 (08:01→20:42)
[2018-06-19] MEDS: nicotine 21mg patch - 24 hr TD SCH (18:02)
[2018-06-19] MEDS: insulin glargine (Lantus) pen - multi-dose SQ SCH (21:00)
[2018-06-19] MEDS: docusate sod 100mg capsule PO SCH (21:00)
[2018-06-19] MEDS: atorvastatin 20mg tablet PO SCH (21:48)
[2018-06-19] MEDS: traZODone 50mg tablet PO SCH (21:48)
[2018-06-20] VITALS: BP 115/70
[2018-06-20] MEDS: gabapentin 400mg capsule PO SCH ×2 (00:04→07:25)
[2018-06-20 00:35] VITALS: BP 97/56
[2018-06-20] MEDS: vancomcyin 250mg capsules PO SCH ×2 (01:49→07:25)
[2018-06-20] MEDS: HYDROcodone/acetaminophen 5mg/325mg tablet PO PRN ×2 (02:26→07:27)
[2018-06-20 03:00] VITALS: BP 127/63
[2018-06-20 03:06] LABS: BASOPHILS # (AUTO) 0.1 X10'3 (0-0.2); BASOPHILS % (AUTO) 0.7 % (0-1); EOSINOPHILS # (AUTO) 0.3 X10'3 (0-0.9); EOSINOPHILS % (AUTO) 1.9 % (0-6); HEMATOCRIT 33.1 % (35.0-45.0); HEMOGLOBIN 10.9 g/dl (12.0-16.0); LYMPHOCYTES # (AUTO) 4.5 X10'3 (1.1-4.8); LYMPHOCYTES % (AUTO) 30.2 % (21-51); MEAN CORPUSCULAR HEMOGLOBIN 29.7 PG (27.0-31.0); MEAN CORPUSCULAR HGB CONC 32.8 % (33.0-36.5); MEAN CORPUSCULAR VOLUME 90.6 FL (78-98); MEAN PLATELET VOLUME 7.4 FL (7.4-10.4); MONOCYTES # (AUTO) 0.7 X10'3 (0-0.9); MONOCYTES % (AUTO) 4.7 % (2-12); NEUTROPHILS # (AUTO) 9.4 X10'3 (1.8-7.7); NEUTROPHILS % (AUTO) 62.5 % (42-75); PLATELET COUNT 324 X10'3 (140-440); RED BLOOD COUNT 3.66 X10'6 (4.20-5.60); RED CELL DISTRIBUTION WIDTH 17.6 % (11.5-14.5); WHITE BLOOD COUNT 15.1 X10'3 (4.5-11.0)
[2018-06-20 03:17] LABS: ALANINE AMINOTRANSFERASE 23 U/L (12-78); ALBUMIN 2.4 G/DL (3.4-5.0); ALBUMIN/GLOBULIN RATIO 0.7 (1.1-1.5); ALKALINE PHOSPHATASE 58 IU/L (46-116); ANION GAP 6 (8-16); ASPARTATE AMINO TRANSFERASE 16 U/L (10-37); BILIRUBIN,TOTAL 0.4 MG/DL (0.1-1.0); BLOOD UREA NITROGEN 21 MG/DL (7-18); BUN/CREATININE RATIO 20.8 (6.6-38.0); CALCIUM 8.4 MG/DL (8.5-10.1); CHLORIDE 107 MMOL/L (99-107); CREATININE 1.01 MG/DL (0.40-0.90); GLUCOSE 110 MG/DL (70-104); MAGNESIUM 1.4 MG/DL (1.5-2.4); POTASSIUM 4.1 MMOL/L (3.5-5.1); SODIUM 138 MMOL/L (135-145); TOTAL CARBON DIOXIDE 25.2 MMOL/L (24-32); eGFR 54 ML/MIN
[2018-06-20 07:00] VITALS: BP 113/68
[2018-06-20] MEDS ORDERED: magnesium Cl slow-release 64mg tablet PO PRN (07:05)
[2018-06-20] MEDS: levetiracetam inj 500 MG in normal saline 100ml IV soln 95 ML IV SCH (07:23)
[2018-06-20] MEDS: pantoprazole 40 MG vial IV SCH (07:24)
[2018-06-20] MEDS: heparin, porcine 5000 units/ml vial SQ SCH (07:24)
[2018-06-20] MEDS: lactobacillus rhamnosus 10,000 MMU CELLS/CAPSULE PO SCH (07:25)
[2018-06-20] MEDS: mesalamine 1.2gm ER tablet PO SCH (07:25)
[2018-06-20] MEDS: oxybutynin 5mg tablet PO SCH (07:25)
[2018-06-20] MEDS: folic acid 1mg tablet PO SCH (07:25)
[2018-06-20] MEDS: thiamine 100mg tablet PO SCH (07:25)
[2018-06-20] MEDS: multivitamins, therapeutics tablet PO SCH (07:25)
[2018-06-20] MEDS: nicotine 21mg patch - 24 hr TD SCH (07:25)
[2018-06-20] MEDS: methylnaltrexone br 12mg/0.6ml inj***SubQ only SQ SCH (07:41)
[2018-06-20] MEDS: aspirin 325mg tablet PO SCH (08:39)
[2018-06-20 11:00] VITALS: BP 119/75
== END 2018-06-20 11:10 | disposition home health service (06) | DRG 207 ==
LOC: ER 23:07 → ED HOLD 06-05 02:42 → SUR 3N 06-05 03:25 → ORTHO 4S 06-06 19:20 → CICU 2S 06-07 15:10 → PCU 3S 06-14 15:29
PROVIDERS: ADMIT Family Medicine; ATTEND Family Medicine
PROC: 5A1955Z Respiratory Ventilation, Greater than 96 Consecutive Hours (ICD-10-PCS; principal; 2018-06-07)
PROC: 0BH17EZ Insertion of Endotracheal Airway into Trachea, Via Natural or Artificial Opening (ICD-10-PCS; 2018-06-07)
PROC: 06HM33Z Insertion of Infusion Device into Right Femoral Vein, Percutaneous Approach (ICD-10-PCS; 2018-06-07)
PROC: 30233N1 Transfusion of Nonautologous Red Blood Cells into Peripheral Vein, Percutaneous Approach (ICD-10-PCS; 2018-06-19)
DX: J44.1 Chronic obstructive pulmonary disease with (acute) exacerbation (principal); J96.21 Acute and chronic respiratory failure with hypoxia; J69.0 Pneumonitis due to inhalation of food and vomit; G93.40 Encephalopathy, unspecified; N17.9 Acute kidney failure, unspecified; A04.72 Enterocolitis due to Clostridium difficile, not specified as recurrent; N18.4 Chronic kidney disease, stage 4 (severe); I12.9 Hypertensive chronic kidney disease with stage 1 through stage 4 chronic kidney disease, or unspecified chronic kidney disease; G40.909 Epilepsy, unspecified, not intractable, without status epilepticus; E86.0 Dehydration; F17.200 Nicotine dependence, unspecified, uncomplicated; F31.9 Bipolar disorder, unspecified; M54.9 Dorsalgia, unspecified; E87.6 Hypokalemia; G89.4 Chronic pain syndrome; D64.9 Anemia, unspecified; K27.9 Peptic ulcer, site unspecified, unspecified as acute or chronic, without hemorrhage or perforation; Z66 Do not resuscitate; Z90.49 Acquired absence of other specified parts of digestive tract; Z88.8 Allergy status to other drugs, medicaments and biological substances; Z79.899 Other long term (current) drug therapy; Z79.82 Long term (current) use of aspirin; Z91.5 Personal history of self-harm; Z86.19 Personal history of other infectious and parasitic diseases; Z86.73 Personal history of transient ischemic attack (TIA), and cerebral infarction without residual deficits
CPT/HCPCS: 36415; 36600; 70450; 70544; 70551; 70553; 71045; 80048; 80053; 80061; 80202; 80305; 80320; 80329; 81001; 82140; 82272; 82550; 82803; 82948; 83605; 83690; 83735; 83880; 84100; 84132; 84134; 84145; 84443; 84484; 85018; 85025; 85610; 85730; 86870; 86885; 86900; 86901; 86902; 86905; 86920; 86922; 87040; 87045; 87046; 87070; 87324; 87328; 87329; 87336; 87449; 89055; 92616; 93005; 93306; 93880; 93882; 94002; 94003; 94640; 94667; 94668; 94760; 95816; 96361; 96374; 97110; 97116; 97162; 97530; 99285; A4315; A4357; A6213; A6250; A6257; A6449; A7015; A9579; C1751; C9113; J0696; J1644; J1815; J1953; J2060; J2250; J2270; J2405; J2543; J2920; J2930; J3370; J3475; J3480; J3490; J7030; J7060; P9016

== ENCOUNTER 2018-08-10 16:05 | Inpatient (IN) | payer MEDICARE, OTHER ==
[~2018-08-10] VITALS: Ht 149.9 cm; Wt 40.0 kg
[~2018-08-10 16:05] MED LIST changes: +AMLO5TAB4 PO; +DOCU-28 PO; +GABA-534 PO; -GABA600T2; -HYDR-565 PO; -LOSA1TAB39 PO; +METO25TA6 PO; -METO50TA17 PO; +OMEP20TA5 PO; -ONDA4TAB12 PO; +ONDA4TAB9 SL; +OXYB5TAB11 PO; -QUET25TA34 PO; +TRAZ-218 PO
[2018-08-10] MEDS ORDERED: normal saline 1000ML IV soln IV ONE (19:35)
[2018-08-10] MEDS ORDERED: normal saline 1000ML IV soln IVB ONE (19:35)
[2018-08-10] MEDS ORDERED: ondansetron/PF 4mg/2ml inj IV ONE (19:35)
[2018-08-10] MEDS: morphine 4 MG/ML inj SYRINge IV PRN (20:48)
[2018-08-10] MEDS ORDERED: dextrose 50%-water 50ml dispensing syringe IV ONE (20:53)
[2018-08-10] MEDS ORDERED: dextrose 50%-water 50ml dispensing syringe IV STA (20:53)
[2018-08-10 20:58] LABS: BASOPHILS % (AUTO) 0.3 % (0-1); EOSINOPHILS # (AUTO) 0.1 X10'3 (0-0.9); EOSINOPHILS % (AUTO) 0.8 % (0-6); HEMOGLOBIN 10.9 g/dl (12.0-16.0); LYMPHOCYTES % (AUTO) 25.2 % (21-51); MEAN CORPUSCULAR HEMOGLOBIN 29.3 PG (27.0-31.0); MEAN CORPUSCULAR HGB CONC 33.1 % (33.0-36.5); MEAN CORPUSCULAR VOLUME 88.8 FL (78-98); MEAN PLATELET VOLUME 6.9 FL (7.4-10.4); MONOCYTES # (AUTO) 1.4 X10'3 (0-0.9); MONOCYTES % (AUTO) 12.2 % (2-12); NEUTROPHILS # (AUTO) 7.3 X10'3 (1.8-7.7); NEUTROPHILS % (AUTO) 61.5 % (42-75); PLATELET COUNT 440 X10'3 (140-440); RED BLOOD COUNT 3.72 X10'6 (4.20-5.60); RED CELL DISTRIBUTION WIDTH 17.3 % (11.5-14.5); WHITE BLOOD COUNT 11.9 X10'3 (4.5-11.0)
[2018-08-10 21:11] LABS: ALANINE AMINOTRANSFERASE 45 U/L (12-78); ALBUMIN 2.9 G/DL (3.4-5.0); ALBUMIN/GLOBULIN RATIO 0.8 (1.1-1.5); ALKALINE PHOSPHATASE 78 IU/L (46-116); ANION GAP 20 (8-16); ASPARTATE AMINO TRANSFERASE 25 U/L (10-37); BILIRUBIN,TOTAL 0.8 MG/DL (0.1-1.0); BLOOD UREA NITROGEN 63 MG/DL (7-18); BUN/CREATININE RATIO 38.2 (6.6-38.0); CALCIUM 8.6 MG/DL (8.5-10.1); CHLORIDE 101 MMOL/L (99-107); CREATININE 1.65 MG/DL (0.40-0.90); LIPASE 98 U/L (73-393); POTASSIUM 3.8 MMOL/L (3.5-5.1); SODIUM 135 MMOL/L (135-145); TOTAL PROTEIN 6.4 G/DL (6.4-8.2); eGFR 31 ML/MIN
[2018-08-10 21:29] LABS: GLUCOSE 45 MG/DL (70-104); TOTAL CARBON DIOXIDE 13.7 MMOL/L (24-32)
[2018-08-10] MEDS ORDERED: piperacillin/tazo 3.375gm/50ml 50 ML IV ONE (21:50)
[2018-08-10 21:59] LABS: CLARITY,URINE CLEAR (Clear); COLOR,URINE YELLOW (Yellow); GLUCOSE, URINE NEGATIVE (Neg); KETONES,URINE 15 mg/dl (Neg); LEUKOCYTE ESTERASE ,URINE NEGATIVE (Neg); NITRITES, URINE NEGATIVE (Neg); OCCULT BLOOD,URINE NEGATIVE (Neg); PROTEIN,URINE TRACE mg/dl (Neg); UROBILINOGEN,URINE 0.2 E.U/dL (0.2-1.0)
[2018-08-10 22:05] LABS: UA COLLECTION TYPE OTHER
[2018-08-10 22:12] LABS: BACTERIA,URINE FEW /HPF (Neg); HYALINE CASTS 0-3 /LPF (NEGATIVE); RBC,URINE 0-2 /HPF (0-2); SQUAMOUS EPITHELIAL CELL,UR MODERATE /LPF (FEW); WBC,URINE 0-4 /HPF (0-4)
[2018-08-10 23:26] LABS: TOTAL CELLS COUNTED 100
[2018-08-10 23:27] LABS: ANISOCYTOSIS 1+; PLATELET ESTIMATE NORMAL
[2018-08-10 23:28] LABS: BURR CELLS 1+
[2018-08-10] MEDS ORDERED: acetaminophen 650mg rectal suppository RC PRN (23:35)
[2018-08-10] MEDS ORDERED: bisacodyl 10mg suppository rectal RC PRN (23:35)
[2018-08-10] MEDS ORDERED: ondansetron/PF 4mg/2ml inj IV PRN (23:35)
[2018-08-10] MEDS: dextrose 5%-1/2 normal saline 1,000 ML IV SCH (23:35)
[2018-08-10] MEDS ORDERED: HYDROcodone/acetaminophen 5mg/325mg tablet PO PRN (23:35)
[2018-08-10] MEDS ORDERED: acetaminophen 325mg tablet PO PRN ×2 (23:35)
[2018-08-10] MEDS ORDERED: magnesium hydroxide 30ml (MOM) UD suspension PO PRN (23:35)
[2018-08-10] MEDS ORDERED: morphine 2 MG/ML inj. syringe IV PRN ×2 (23:35)
[2018-08-10] MEDS ORDERED: dextrose 50%-water 50ml dispensing syringe IV PRN ×2 (23:45)
[2018-08-10] MEDS ORDERED: insulin Lispro (HumaLOG) vial - multi-dose SQ SCH (23:45)
[2018-08-10] MEDS ORDERED: dextrose ORAL solution 15 GM/59 ML bottle PO PRN ×2 (23:45)
[2018-08-10] MEDS: potassium CL 20mEq in D5-1/2NS 1,000 ML IV SCH (23:45)
[2018-08-10] MEDS ORDERED: MESSAGE TO PHARMACY PO ONE (23:45)
[2018-08-10] MEDS ORDERED: glucagon, human recombinant 1mg kit SUBCUT PRN (23:45)
[2018-08-11] MEDS: gabapentin 400mg capsule PO SCH ×4 (00:06→23:25)
[2018-08-11] MEDS: pantoprazole 40 MG vial IV SCH ×2 (00:06→11:32)
[2018-08-11 00:17] LABS: HEMOGLOBIN A1C 4.9 % (4.5-6.2)
[2018-08-11 00:22] LABS: D-DIMER 0.79 MG/L FEU (0-0.50); PARTIAL THROMBOPLASTIN TIME 31 SECONDS (22-32); PROTHROMBIN TIME 10.5 SECONDS (9.0-12.0)
[2018-08-11 00:28] LABS: PHOSPHORUS 3.3 MG/DL (2.3-4.5)
[2018-08-11 00:30] LABS: ABG BASE EXCESS -13.8 mmol/L (-2.0-3.0); ABG HCO3 12.4 mmol/L (22.0-26.0); ABG OXYGEN SATURATION 97.9 % (95-98); ABG PCO2 (T) 30.3 mmHg (32.0-45.0); ABG PH (T) 7.231 (7.350-7.450); FCOHb 1.2 % (0.5-1.5); FLOW 2 L/min; FMetHb 0.3 % (0.3-1.12); FO2Hb 96.4 % (94-100); PATIENT TEMPERATURE 36.9; RESPIRATORY RATE (OBSERVED) 20 b/min; TOTAL HEMOGLOBIN 9.9 G/dl (12.0-16.0)
[2018-08-11 02:07] LABS: ALANINE AMINOTRANSFERASE 34 U/L (12-78); ALBUMIN 2.1 G/DL (3.4-5.0); ALBUMIN/GLOBULIN RATIO 0.8 (1.1-1.5); ALKALINE PHOSPHATASE 60 IU/L (46-116); ANION GAP 11 (8-16); ASPARTATE AMINO TRANSFERASE 16 U/L (10-37); BILIRUBIN,TOTAL 0.5 MG/DL (0.1-1.0); BLOOD UREA NITROGEN 46 MG/DL (7-18); BUN/CREATININE RATIO 33.3 (6.6-38.0); CHLORIDE 109 MMOL/L (99-107); CREATININE 1.38 MG/DL (0.40-0.90); GLUCOSE 114 MG/DL (70-104); POTASSIUM 3.8 MMOL/L (3.5-5.1); SODIUM 137 MMOL/L (135-145); TOTAL CARBON DIOXIDE 16.7 MMOL/L (24-32); TOTAL PROTEIN 4.8 G/DL (6.4-8.2); eGFR 38 ML/MIN
[2018-08-11 02:16] LABS: BASOPHILS % (AUTO) 0.3 % (0-1); EOSINOPHILS # (AUTO) 0.1 X10'3 (0-0.9); EOSINOPHILS % (AUTO) 1.3 % (0-6); HEMATOCRIT 27.2 % (35.0-45.0); HEMOGLOBIN 8.9 g/dl (12.0-16.0); LYMPHOCYTES # (AUTO) 2.9 X10'3 (1.1-4.8); LYMPHOCYTES % (AUTO) 34.7 % (21-51); MEAN CORPUSCULAR HGB CONC 32.6 % (33.0-36.5); MEAN CORPUSCULAR VOLUME 88.9 FL (78-98); MEAN PLATELET VOLUME 6.7 FL (7.4-10.4); MONOCYTES # (AUTO) 0.4 X10'3 (0-0.9); MONOCYTES % (AUTO) 5.3 % (2-12); NEUTROPHILS # (AUTO) 4.8 X10'3 (1.8-7.7); NEUTROPHILS % (AUTO) 58.4 % (42-75); PLATELET COUNT 355 X10'3 (140-440); RED BLOOD COUNT 3.06 X10'6 (4.20-5.60); RED CELL DISTRIBUTION WIDTH 17.1 % (11.5-14.5); WHITE BLOOD COUNT 8.3 X10'3 (4.5-11.0)
[2018-08-11 02:55] LABS: ANISOCYTOSIS 1+; BURR CELLS FEW; PLATELET ESTIMATE NORMAL; TOTAL CELLS COUNTED 100
[2018-08-11 02:56] LABS: POLYCHROMASIA FEW
[2018-08-11] MEDS ORDERED: methylPREDNISolone sod succ 125mg/2ml vial IV STA (04:00)
[2018-08-11] MEDS ORDERED: methylPREDNISolone sod succ 125mg/2ml vial IV SCH ×2 (04:01→08:00)
[2018-08-11] MEDS ORDERED: normal saline 500ml IV soln 500 ML IV ONE (04:05)
[2018-08-11] MEDS: albumin (Human) 5% 250 ML IV solution IV SCH ×2 (04:21→11:34)
[2018-08-11] MEDS: mag hydrox/Alum hydrox/simeth 30ml oral suspension PO PRN ×3 (05:56→18:34)
[2018-08-11] MEDS ORDERED: docusate sod 100mg capsule PO SCH (08:00)
[2018-08-11] MEDS ORDERED: pantoprazole 40mg Tablet.DR PO SCH (08:00)
[2018-08-11] MEDS: dextrose 5%-1/2 normal saline 1,000 ML IV SCH ×2 (09:35→19:35)
[2018-08-11] MEDS: potassium CL 20mEq in D5-1/2NS 1,000 ML IV SCH ×2 (11:24→21:26)
[2018-08-11] MEDS: nicotine 21mg patch - 24 hr TD SCH (11:27)
[2018-08-11] MEDS: oxybutynin 5mg tablet PO SCH ×2 (11:30→21:24)
[2018-08-11] MEDS: morphine 4 MG/ML inj SYRINge IV PRN (11:32)
[2018-08-11] MEDS: HYDROcodone/acetaminophen 10/325mg tab PO PRN ×2 (11:52→18:44)
[2018-08-11] MEDS: metroNIDAZOLE 500mg tablet PO SCH ×3 (13:03→23:25)
[2018-08-11 18:00] VITALS: BP 91/55
[2018-08-11] MEDS ORDERED: traZODone 50mg tablet PO SCH (21:00)
[2018-08-11] MEDS ORDERED: Melatonin 3mg tablet PO PRN (22:30)
[2018-08-11] MEDS: vancomycin/NS 1 GM ADD-VANTAGE 250 ML IV SCH ×2 (23:00→23:07)
[2018-08-12] VITALS: BP 93/59
[2018-08-12 05:01] LABS: BASOPHILS % (AUTO) 0.2 % (0-1); EOSINOPHILS # (AUTO) 0.1 X10'3 (0-0.9); EOSINOPHILS % (AUTO) 0.7 % (0-6); HEMOGLOBIN 8.6 g/dl (12.0-16.0); LYMPHOCYTES # (AUTO) 1.4 X10'3 (1.1-4.8); LYMPHOCYTES % (AUTO) 13.8 % (21-51); MEAN CORPUSCULAR HEMOGLOBIN 29.3 PG (27.0-31.0); MEAN CORPUSCULAR HGB CONC 33.2 % (33.0-36.5); MEAN CORPUSCULAR VOLUME 88.3 FL (78-98); MONOCYTES # (AUTO) 0.4 X10'3 (0-0.9); MONOCYTES % (AUTO) 3.9 % (2-12); NEUTROPHILS # (AUTO) 8.4 X10'3 (1.8-7.7); NEUTROPHILS % (AUTO) 81.4 % (42-75); PLATELET COUNT 331 X10'3 (140-440); RED BLOOD COUNT 2.95 X10'6 (4.20-5.60); RED CELL DISTRIBUTION WIDTH 17.3 % (11.5-14.5); WHITE BLOOD COUNT 10.4 X10'3 (4.5-11.0)
[2018-08-12] MEDS: potassium CL 20mEq in D5-1/2NS 1,000 ML IV SCH (05:30)
[2018-08-12] MEDS: dextrose 5%-1/2 normal saline 1,000 ML IV SCH (05:35)
[2018-08-12 05:44] LABS: ALANINE AMINOTRANSFERASE 25 U/L (12-78); ALBUMIN 2.5 G/DL (3.4-5.0); ALBUMIN/GLOBULIN RATIO 0.9 (1.1-1.5); ALKALINE PHOSPHATASE 57 IU/L (46-116); ANION GAP 11 (8-16); ASPARTATE AMINO TRANSFERASE 9 U/L (10-37); BILIRUBIN,TOTAL 0.2 MG/DL (0.1-1.0); BLOOD UREA NITROGEN 33 MG/DL (7-18); BUN/CREATININE RATIO 25.2 (6.6-38.0); CALCIUM 7.8 MG/DL (8.5-10.1); CHLORIDE 111 MMOL/L (99-107); CREATININE 1.31 MG/DL (0.40-0.90); GLUCOSE 176 MG/DL (70-104); POTASSIUM 5.2 MMOL/L (3.5-5.1); SODIUM 137 MMOL/L (135-145); TOTAL PROTEIN 5.3 G/DL (6.4-8.2); eGFR 40 ML/MIN
[2018-08-12 06:43] LABS: TOTAL CARBON DIOXIDE 14.6 MMOL/L (24-32)
[2018-08-12 07:16] VITALS: BP 93/64
[2018-08-12] MEDS ORDERED: pantoprazole 40mg Tablet.DR PO SCH (07:30)
[2018-08-12] MEDS: metroNIDAZOLE 500mg tablet PO SCH ×2 (07:55→14:54)
[2018-08-12] MEDS: gabapentin 400mg capsule PO SCH (07:56)
[2018-08-12] MEDS: oxybutynin 5mg tablet PO SCH (07:56)
[2018-08-12] MEDS: albumin (Human) 5% 250 ML IV solution IV SCH (07:58)
[2018-08-12] MEDS: nicotine 21mg patch - 24 hr TD SCH (08:06)
[2018-08-12] MEDS ORDERED: sodium chloride 0.45% 1,000 ML IV SCH (10:15)
[2018-08-12 11:32] VITALS: BP 98/63
[2018-08-12] MEDS ORDERED: METR500T4 PO (13:25)
[2018-08-14] MEDS ORDERED: VANCOMYCIN LEVEL IV ONE (22:30)
== END 2018-08-12 14:58 | disposition home health service (06) | DRG 385 ==
LOC: ER 16:06 → ED HOLD 23:35 → SUR 3N 08-11 19:15
PROVIDERS: ADMIT Family Medicine; ATTEND Internal Medicine
DX: K50.90 Crohn's disease, unspecified, without complications (principal); E43 Unspecified severe protein-calorie malnutrition; N17.9 Acute kidney failure, unspecified; A09 Infectious gastroenteritis and colitis, unspecified; Z68.1 Body mass index [BMI] 19.9 or less, adult; E87.2 Acidosis; I50.32 Chronic diastolic (congestive) heart failure; D64.9 Anemia, unspecified; M54.9 Dorsalgia, unspecified; F32.9 Major depressive disorder, single episode, unspecified; G47.00 Insomnia, unspecified; G89.29 Other chronic pain; E16.2 Hypoglycemia, unspecified; E86.0 Dehydration; E86.1 Hypovolemia; G62.9 Polyneuropathy, unspecified; I11.0 Hypertensive heart disease with heart failure; J44.9 Chronic obstructive pulmonary disease, unspecified; Z87.11 Personal history of peptic ulcer disease; Z87.891 Personal history of nicotine dependence; Z90.49 Acquired absence of other specified parts of digestive tract; Z87.01 Personal history of pneumonia (recurrent); Z88.8 Allergy status to other drugs, medicaments and biological substances; Z86.73 Personal history of transient ischemic attack (TIA), and cerebral infarction without residual deficits; Z79.899 Other long term (current) drug therapy
CPT/HCPCS: 36415; 36600; 70450; 71045; 74176; 80053; 81001; 82803; 82948; 83036; 83605; 83690; 83735; 83880; 84100; 84145; 84484; 85018; 85025; 85379; 85610; 85730; 87040; 87070; 87077; 87186; 96361; 96374; 96375; 97110; 97116; 97161; 97530; 99291; C9113; J2270; J2405; J2543; J2930; J3370; J3490; J7030; P9045

== ENCOUNTER 2018-09-05 20:06 | Inpatient (IN) | payer MEDICARE, OTHER ==
[~2018-09-05] VITALS: Ht 144.8 cm; Wt 41.0 kg
[~2018-09-05 20:06] MED LIST changes: -AMLO5TAB4 PO; -DOCU-28 PO; +METR500T4 PO
[2018-09-05] MEDS ORDERED: pantoprazole 40 MG vial IV ONE (20:30)
[2018-09-05 21:50] LABS: BASOPHILS % (AUTO) 0.3 % (0-1); EOSINOPHILS % (AUTO) 0.3 % (0-6); HEMATOCRIT 23.6 % (35.0-45.0); HEMOGLOBIN 7.6 g/dl (12.0-16.0); LYMPHOCYTES # (AUTO) 2.2 X10'3 (1.1-4.8); LYMPHOCYTES % (AUTO) 34.3 % (21-51); MEAN CORPUSCULAR HEMOGLOBIN 28.9 PG (27.0-31.0); MEAN CORPUSCULAR HGB CONC 32.1 % (33.0-36.5); MEAN CORPUSCULAR VOLUME 90.1 FL (78-98); MEAN PLATELET VOLUME 6.6 FL (7.4-10.4); MONOCYTES # (AUTO) 0.3 X10'3 (0-0.9); NEUTROPHILS # (AUTO) 3.8 X10'3 (1.8-7.7); NEUTROPHILS % (AUTO) 60.1 % (42-75); PLATELET COUNT 407 X10'3 (140-440); RED BLOOD COUNT 2.62 X10'6 (4.20-5.60); RED CELL DISTRIBUTION WIDTH 19.5 % (11.5-14.5); WHITE BLOOD COUNT 6.3 X10'3 (4.5-11.0)
[2018-09-05 21:52] LABS: ALANINE AMINOTRANSFERASE 12 U/L (12-78); ALBUMIN 2.7 G/DL (3.4-5.0); ALBUMIN/GLOBULIN RATIO 0.8 (1.1-1.5); ALKALINE PHOSPHATASE 65 IU/L (46-116); ANION GAP 13 (8-16); ASPARTATE AMINO TRANSFERASE 23 U/L (10-37); BILIRUBIN,TOTAL 0.5 MG/DL (0.1-1.0); BLOOD UREA NITROGEN 34 MG/DL (7-18); BUN/CREATININE RATIO 26.8 (6.6-38.0); CALCIUM 7.6 MG/DL (8.5-10.1); CHLORIDE 114 MMOL/L (99-107); CREATININE 1.27 MG/DL (0.40-0.90); GLUCOSE 100 MG/DL (70-104); MAGNESIUM 1.6 MG/DL (1.5-2.4); POTASSIUM 4.2 MMOL/L (3.5-5.1); SODIUM 146 MMOL/L (135-145); TOTAL CARBON DIOXIDE 19.4 MMOL/L (24-32); TOTAL PROTEIN 6.3 G/DL (6.4-8.2); eGFR 41 ML/MIN
[2018-09-05 22:04] LABS: PARTIAL THROMBOPLASTIN TIME 28 SECONDS (22-32); PROTHROMBIN TIME 10.5 SECONDS (9.0-12.0)
[2018-09-05] MEDS ORDERED: acetaminophen 325mg tablet PO PRN ×2 (22:20)
[2018-09-05] MEDS ORDERED: mag hydrox/Alum hydrox/simeth 30ml oral suspension PO PRN (22:20)
[2018-09-05] MEDS ORDERED: morphine 2 MG/ML inj. syringe IV PRN ×2 (22:20)
[2018-09-05] MEDS ORDERED: bisacodyl 10mg suppository rectal RC PRN (22:20)
[2018-09-05] MEDS ORDERED: acetaminophen 650mg rectal suppository RC PRN (22:20)
[2018-09-05] MEDS ORDERED: ondansetron/PF 4mg/2ml inj IV PRN (22:20)
[2018-09-05] MEDS ORDERED: HYDROmorphone 1 mg/ml syringe IV PRN ×2 (22:20)
[2018-09-05] MEDS ORDERED: magnesium hydroxide 30ml (MOM) UD suspension PO PRN (22:20)
[2018-09-05 22:24] LABS: ETHANOL < 0.010 GM/DL (0.0-0.010)
[2018-09-05 22:57] LABS: LIPASE 202 U/L (73-393); PHOSPHORUS 3.3 MG/DL (2.3-4.5)
[2018-09-05 23:01] LABS: ANISOCYTOSIS 2+; PLATELET ESTIMATE NORMAL; POLYCHROMASIA FEW
[2018-09-05 23:05] VITALS: BP 101/54
[2018-09-05] MEDS: gabapentin 400mg capsule PO SCH (23:41)
[2018-09-05] MEDS: normal saline 1000ml 1,000 ML IV SCH (23:41)
[2018-09-06] VITALS (11 sets, daily range): BP systolic 90–124; BP diastolic 47–74
[2018-09-06] MEDS ORDERED: traZODone 50mg tablet PO PRN (00:15)
[2018-09-06 05:50] LABS: BASOPHILS % (AUTO) 0.2 % (0-1); EOSINOPHILS # (AUTO) 0.1 X10'3 (0-0.9); EOSINOPHILS % (AUTO) 1.3 % (0-6); LYMPHOCYTES # (AUTO) 3.2 X10'3 (1.1-4.8); LYMPHOCYTES % (AUTO) 49.6 % (21-51); MEAN CORPUSCULAR HEMOGLOBIN 28.9 PG (27.0-31.0); MEAN CORPUSCULAR HGB CONC 32.1 % (33.0-36.5); MEAN PLATELET VOLUME 6.3 FL (7.4-10.4); MONOCYTES # (AUTO) 0.5 X10'3 (0-0.9); MONOCYTES % (AUTO) 7.1 % (2-12); NEUTROPHILS # (AUTO) 2.7 X10'3 (1.8-7.7); NEUTROPHILS % (AUTO) 41.8 % (42-75); PLATELET COUNT 363 X10'3 (140-440); RED BLOOD COUNT 2.37 X10'6 (4.20-5.60); RED CELL DISTRIBUTION WIDTH 19.5 % (11.5-14.5); WHITE BLOOD COUNT 6.5 X10'3 (4.5-11.0)
[2018-09-06 05:59] LABS: HEMOGLOBIN 6.9 g/dl (12.0-16.0)
[2018-09-06 06:00] LABS: HEMATOCRIT 21.3 % (35.0-45.0)
[2018-09-06 06:23] LABS: ALANINE AMINOTRANSFERASE 11 U/L (12-78); ALBUMIN 2.4 G/DL (3.4-5.0); ALBUMIN/GLOBULIN RATIO 0.7 (1.1-1.5); ALKALINE PHOSPHATASE 54 IU/L (46-116); ANION GAP 11 (8-16); ASPARTATE AMINO TRANSFERASE 19 U/L (10-37); BILIRUBIN,TOTAL 0.3 MG/DL (0.1-1.0); BLOOD UREA NITROGEN 27 MG/DL (7-18); BUN/CREATININE RATIO 24.1 (6.6-38.0); CALCIUM 7.8 MG/DL (8.5-10.1); CHLORIDE 115 MMOL/L (99-107); CREATININE 1.12 MG/DL (0.40-0.90); GLUCOSE 82 MG/DL (70-104); POTASSIUM 4.2 MMOL/L (3.5-5.1); SODIUM 146 MMOL/L (135-145); TOTAL CARBON DIOXIDE 19.7 MMOL/L (24-32); TOTAL PROTEIN 5.7 G/DL (6.4-8.2); eGFR 48 ML/MIN
[2018-09-06 07:02] LABS: PLATELET ESTIMATE NORMAL
[2018-09-06 07:03] LABS: ANISOCYTOSIS 2+; HYPOCHROMASIA 1+
[2018-09-06] MEDS: gabapentin 400mg capsule PO SCH ×2 (07:32→16:23)
[2018-09-06] MEDS: oxybutynin 5mg tablet PO SCH ×2 (07:33→20:06)
[2018-09-06] MEDS: pantoprazole 40 MG vial IV SCH ×2 (07:33→20:07)
[2018-09-06] MEDS: HYDROcodone/acetaminophen 10/325mg tab PO PRN ×3 (07:33→21:44)
[2018-09-06] MEDS: docusate sod 100mg capsule PO SCH ×2 (08:00→20:00)
[2018-09-06] MEDS ORDERED: methylPREDNISolone sod succ 125mg/2ml vial IV SCH (08:00)
[2018-09-06] MEDS: normal saline 1000ml 1,000 ML IV SCH ×2 (08:19→18:19)
[2018-09-06] MEDS ORDERED: SUCR1TAB PO (09:13)
[2018-09-06] MEDS ORDERED: LACT1CAP65 PO (09:13)
[2018-09-06] MEDS ORDERED: methylPREDNISolone sod succ/PF 40mg inj. IV SCH (15:46)
[2018-09-06] MEDS: metroNIDAZOLE-Flagyl 500mg/NS 100 ML IV SCH (19:08)
[2018-09-06] MEDS: traZODone 50mg tablet PO SCH (20:06)
[2018-09-07] MEDS: metroNIDAZOLE-Flagyl 500mg/NS 100 ML IV SCH ×4 (00:45→23:28)
[2018-09-07] MEDS: gabapentin 400mg capsule PO SCH ×4 (00:45→23:28)
[2018-09-07] MEDS: normal saline 1000ml 1,000 ML IV SCH ×2 (04:19→14:19)
[2018-09-07 06:00] VITALS: BP 115/74
[2018-09-07] MEDS: HYDROcodone/acetaminophen 5mg/325mg tablet PO PRN ×2 (06:00→09:33)
[2018-09-07 06:26] LABS: BASOPHILS % (AUTO) 0.2 % (0-1); EOSINOPHILS # (AUTO) 0.1 X10'3 (0-0.9); EOSINOPHILS % (AUTO) 0.8 % (0-6); HEMATOCRIT 32.7 % (35.0-45.0); HEMOGLOBIN 10.5 g/dl (12.0-16.0); LYMPHOCYTES # (AUTO) 3.6 X10'3 (1.1-4.8); LYMPHOCYTES % (AUTO) 45.7 % (21-51); MEAN CORPUSCULAR HEMOGLOBIN 29.2 PG (27.0-31.0); MEAN CORPUSCULAR VOLUME 91.2 FL (78-98); MEAN PLATELET VOLUME 6.8 FL (7.4-10.4); MONOCYTES # (AUTO) 0.8 X10'3 (0-0.9); MONOCYTES % (AUTO) 9.9 % (2-12); NEUTROPHILS # (AUTO) 3.4 X10'3 (1.8-7.7); NEUTROPHILS % (AUTO) 43.4 % (42-75); PLATELET COUNT 252 X10'3 (140-440); RED BLOOD COUNT 3.59 X10'6 (4.20-5.60); RED CELL DISTRIBUTION WIDTH 17.2 % (11.5-14.5); WHITE BLOOD COUNT 7.8 X10'3 (4.5-11.0)
[2018-09-07 06:38] LABS: ALANINE AMINOTRANSFERASE 15 U/L (12-78); ALBUMIN 2.6 G/DL (3.4-5.0); ALBUMIN/GLOBULIN RATIO 0.8 (1.1-1.5); ALKALINE PHOSPHATASE 59 IU/L (46-116); ANION GAP 10 (8-16); ASPARTATE AMINO TRANSFERASE 18 U/L (10-37); BILIRUBIN,TOTAL 0.2 MG/DL (0.1-1.0); BLOOD UREA NITROGEN 20 MG/DL (7-18); BUN/CREATININE RATIO 22.2 (6.6-38.0); CHLORIDE 109 MMOL/L (99-107); GLUCOSE 71 MG/DL (70-104); POTASSIUM 4.1 MMOL/L (3.5-5.1); SODIUM 139 MMOL/L (135-145); TOTAL CARBON DIOXIDE 20.2 MMOL/L (24-32); eGFR 62 ML/MIN
[2018-09-07] MEDS: pantoprazole 40 MG vial IV SCH ×2 (07:59→23:27)
[2018-09-07] MEDS: oxybutynin 5mg tablet PO SCH ×2 (07:59→21:17)
[2018-09-07] MEDS: docusate sod 100mg capsule PO SCH ×2 (08:00→21:17)
[2018-09-07 08:59] VITALS: BP 138/86
[2018-09-07 10:00] VITALS: BP 139/79
[2018-09-07 13:57] VITALS: BP 139/71
[2018-09-07] MEDS: HYDROcodone/acetaminophen 10/325mg tab PO PRN (17:02)
[2018-09-07] MEDS: traZODone 50mg tablet PO SCH (21:17)
[2018-09-07 22:00] VITALS: BP 135/78
[2018-09-07] MEDS ORDERED: temazepam 15mg capsule PO PRN (23:05)
[2018-09-07] MEDS ORDERED: nicotine 21mg patch - 24 hr TD ONE (23:05)
[2018-09-07] MEDS: methylPREDNISolone sod succ/PF 40mg inj. IV SCH (23:27)
[2018-09-08] MEDS: normal saline 1000ml 1,000 ML IV SCH ×2 (00:19→10:19)
[2018-09-08 05:00] VITALS: BP 139/98
[2018-09-08] MEDS: HYDROcodone/acetaminophen 10/325mg tab PO PRN (05:45)
[2018-09-08 07:09] LABS: BASOPHILS % (AUTO) 0.2 % (0-1); EOSINOPHILS % (AUTO) 0.9 % (0-6); HEMATOCRIT 36.4 % (35.0-45.0); HEMOGLOBIN 11.8 g/dl (12.0-16.0); LYMPHOCYTES % (AUTO) 17.9 % (21-51); MEAN CORPUSCULAR HEMOGLOBIN 29.3 PG (27.0-31.0); MEAN CORPUSCULAR HGB CONC 32.3 % (33.0-36.5); MEAN CORPUSCULAR VOLUME 90.8 FL (78-98); MEAN PLATELET VOLUME 6.9 FL (7.4-10.4); MONOCYTES # (AUTO) 0.2 X10'3 (0-0.9); MONOCYTES % (AUTO) 3.4 % (2-12); NEUTROPHILS # (AUTO) 4.3 X10'3 (1.8-7.7); NEUTROPHILS % (AUTO) 77.6 % (42-75); PLATELET COUNT 282 X10'3 (140-440); RED CELL DISTRIBUTION WIDTH 17.2 % (11.5-14.5); WHITE BLOOD COUNT 5.6 X10'3 (4.5-11.0)
[2018-09-08 07:25] LABS: ALANINE AMINOTRANSFERASE 19 U/L (12-78); ALBUMIN 3.1 G/DL (3.4-5.0); ALBUMIN/GLOBULIN RATIO 0.8 (1.1-1.5); ALKALINE PHOSPHATASE 66 IU/L (46-116); ANION GAP 12 (8-16); ASPARTATE AMINO TRANSFERASE 18 U/L (10-37); BILIRUBIN,TOTAL 0.3 MG/DL (0.1-1.0); BLOOD UREA NITROGEN 17 MG/DL (7-18); BUN/CREATININE RATIO 17.7 (6.6-38.0); CALCIUM 9.2 MG/DL (8.5-10.1); CHLORIDE 109 MMOL/L (99-107); CREATININE 0.96 MG/DL (0.40-0.90); GLUCOSE 118 MG/DL (70-104); POTASSIUM 4.4 MMOL/L (3.5-5.1); SODIUM 143 MMOL/L (135-145); TOTAL CARBON DIOXIDE 22.5 MMOL/L (24-32); eGFR 57 ML/MIN
[2018-09-08] MEDS: metroNIDAZOLE-Flagyl 500mg/NS 100 ML IV SCH (08:06)
[2018-09-08] MEDS: pantoprazole 40 MG vial IV SCH (08:32)
[2018-09-08] MEDS: docusate sod 100mg capsule PO SCH (08:32)
[2018-09-08] MEDS: methylPREDNISolone sod succ/PF 40mg inj. IV SCH (08:32)
[2018-09-08] MEDS: oxybutynin 5mg tablet PO SCH (08:32)
[2018-09-08] MEDS: gabapentin 400mg capsule PO SCH (08:33)
[2018-09-08 10:00] VITALS: BP 146/87
[2018-09-08] MEDS ORDERED: PRED10TA23 PO (14:50)
== END 2018-09-08 15:20 | disposition home health service (06) | DRG 385 ==
LOC: ER 20:06 → ED HOLD 22:19 → ORTHO 4S 23:03
PROVIDERS: ADMIT Family Medicine; ATTEND Family Medicine
PROC: 30233N1 Transfusion of Nonautologous Red Blood Cells into Peripheral Vein, Percutaneous Approach (ICD-10-PCS; principal; 2018-09-06)
DX: K50.90 Crohn's disease, unspecified, without complications (principal); E43 Unspecified severe protein-calorie malnutrition; K92.2 Gastrointestinal hemorrhage, unspecified; N17.9 Acute kidney failure, unspecified; D62 Acute posthemorrhagic anemia; Z68.1 Body mass index [BMI] 19.9 or less, adult; B19.20 Unspecified viral hepatitis C without hepatic coma; F32.9 Major depressive disorder, single episode, unspecified; M54.9 Dorsalgia, unspecified; I11.0 Hypertensive heart disease with heart failure; I50.9 Heart failure, unspecified; E86.0 Dehydration; E86.1 Hypovolemia; G89.4 Chronic pain syndrome; F17.200 Nicotine dependence, unspecified, uncomplicated; J44.9 Chronic obstructive pulmonary disease, unspecified; K74.60 Unspecified cirrhosis of liver; Z90.49 Acquired absence of other specified parts of digestive tract; Z88.8 Allergy status to other drugs, medicaments and biological substances; Z79.899 Other long term (current) drug therapy; Z87.01 Personal history of pneumonia (recurrent); Z86.19 Personal history of other infectious and parasitic diseases; Z87.11 Personal history of peptic ulcer disease; Z71.6 Tobacco abuse counseling
CPT/HCPCS: 36415; 71045; 80053; 80320; 83605; 83690; 83735; 83880; 84100; 85025; 85610; 85730; 86870; 86885; 86900; 86901; 86902; 86905; 86920; 86922; 87070; 96374; 99291; C9113; J2920; J2930; J3490; J7030; P9016

== ENCOUNTER 2018-10-30 05:59 | Inpatient (IN) | payer MEDICARE, OTHER ==
[~2018-10-30] VITALS: Ht 144.8 cm; Wt 36.4 kg
[~2018-10-30 05:59] MED LIST changes: +LACT1CAP65 PO; +METR-211 PO; -METR500T4 PO; +SUCR1TAB PO
[2018-10-30] MEDS ORDERED: ondansetron/PF 4mg/2ml inj IV ONE (06:15)
[2018-10-30] MEDS ORDERED: morphine 4 MG/ML inj SYRINge IV ONE (06:15)
[2018-10-30] MEDS ORDERED: proCHLORperazine 10 MG/2 ml inj IV ONE (06:25)
[2018-10-30 07:10] LABS: BASOPHILS # (AUTO) 0.1 X10'3 (0-0.2); BASOPHILS % (AUTO) 0.5 % (0-1); EOSINOPHILS % (AUTO) 0 % (0-6); HEMATOCRIT 46.6 % (35.0-45.0); HEMOGLOBIN 14.9 g/dl (12.0-16.0); LYMPHOCYTES # (AUTO) 2.6 X10'3 (1.1-4.8); LYMPHOCYTES % (AUTO) 15.4 % (21-51); MEAN CORPUSCULAR HEMOGLOBIN 29.4 PG (27.0-31.0); MEAN CORPUSCULAR VOLUME 91.9 FL (78-98); MEAN PLATELET VOLUME 7.5 FL (7.4-10.4); MONOCYTES # (AUTO) 0.2 X10'3 (0-0.9); MONOCYTES % (AUTO) 0.9 % (2-12); NEUTROPHILS % (AUTO) 83.2 % (42-75); PLATELET COUNT 552 X10'3 (140-440); RED BLOOD COUNT 5.07 X10'6 (4.20-5.60); RED CELL DISTRIBUTION WIDTH 19.3 % (11.5-14.5); WHITE BLOOD COUNT 16.8 X10'3 (4.5-11.0)
[2018-10-30 07:24] LABS: PARTIAL THROMBOPLASTIN TIME 30 SECONDS (22-32); PROTHROMBIN TIME 10.3 SECONDS (9.0-12.0)
[2018-10-30] MEDS ORDERED: normal saline 1000ML IV soln IVB ONE ×2 (07:25→07:35)
[2018-10-30 07:27] LABS: ALANINE AMINOTRANSFERASE 40 U/L (12-78); ALBUMIN/GLOBULIN RATIO 0.9 (1.1-1.5); ALKALINE PHOSPHATASE 174 IU/L (46-116); ANION GAP 33 (8-16); ASPARTATE AMINO TRANSFERASE 20 U/L (10-37); BILIRUBIN,TOTAL 0.5 MG/DL (0.1-1.0); BLOOD UREA NITROGEN 37 MG/DL (7-18); BUN/CREATININE RATIO 17.9 (6.6-38.0); CALCIUM 10.9 MG/DL (8.5-10.1); CHLORIDE 95 MMOL/L (99-107); CREATININE 2.07 MG/DL (0.40-0.90); LIPASE 1002 U/L (73-393); POTASSIUM 3.4 MMOL/L (3.5-5.1); SODIUM 140 MMOL/L (135-145); TOTAL PROTEIN 8.7 G/DL (6.4-8.2); eGFR 24 ML/MIN
[2018-10-30 07:31] LABS: GLUCOSE 114 MG/DL (70-104)
[2018-10-30 07:33] LABS: TOTAL CARBON DIOXIDE 12.2 MMOL/L (24-32)
[2018-10-30] MEDS ORDERED: CefTRIAXone/D5W-Rocephin 1gm 50 ML IV ONE (07:50)
[2018-10-30 08:04] LABS: CLARITY,URINE CLEAR (Clear); COLOR,URINE YELLOW (Yellow); GLUCOSE, URINE NEGATIVE (Neg); KETONES,URINE >=80 mg/dl (Neg); LEUKOCYTE ESTERASE ,URINE TRACE (Neg); NITRITES, URINE POSITIVE (Neg); OCCULT BLOOD,URINE NEGATIVE (Neg); PROTEIN,URINE 100 mg/dl (Neg); UROBILINOGEN,URINE 0.2 E.U/dL (0.2-1.0)
[2018-10-30 08:16] LABS: UA COLLECTION TYPE STRAIGHT CATH; URINE AMPHETAMINE SCREEN NEGATIVE (Neg); URINE BARBITUATE SCREEN NEGATIVE (Neg); URINE BENZODIAZEPINES SCREEN POSITIVE (Neg); URINE CANNABINOID SCREEN NEGATIVE (Neg); URINE COCAINE SCREEN NEGATIVE (Neg); URINE METHADONE SCREEN NEGATIVE (Neg); URINE OPIATE SCREEN NEGATIVE (Neg); URINE PHENCYCLIDINE SCREEN NEGATIVE (Neg)
[2018-10-30 08:17] LABS: RBC,URINE 0-2 /HPF (0-2)
[2018-10-30 08:18] LABS: BACTERIA,URINE FEW /HPF (Neg); MUCUS STRANDS NONE SEEN /LPF (Neg); SQUAMOUS EPITHELIAL CELL,UR NONE SEEN /LPF (FEW)
[2018-10-30 08:21] LABS: ABG BASE EXCESS -17.1 mmol/L (-2.0-3.0); ABG HCO3 9.5 mmol/L (22.0-26.0); ABG OXYGEN SATURATION 96.8 % (95-98); ABG PCO2 (T) 25.5 mmHg (32.0-45.0); ABG PH (T) 7.188 (7.350-7.450); ABG PO2 (T) 99.2 mmHg (83-108); FCOHb 1.9 % (0.5-1.5); FMetHb 0.3 % (0.3-1.12); FO2Hb 94.7 % (94-100); TOTAL HEMOGLOBIN 13.2 G/dl (12.0-16.0)
[2018-10-30] MEDS ORDERED: BENA20TA76 PO (09:00)
[2018-10-30] MEDS ORDERED: CYPR4TAB57 PO (09:01)
[2018-10-30] MEDS ORDERED: ACET-2119 PO (09:02)
[2018-10-30] MEDS ORDERED: ATRIN INH (09:02)
[2018-10-30] MEDS ORDERED: bisacodyl 10mg suppository rectal RC PRN (09:20)
[2018-10-30] MEDS ORDERED: morphine 2 MG/ML inj. syringe IV PRN (09:20)
[2018-10-30] MEDS ORDERED: normal saline 1000ml 1,000 ML IV SCH (09:20)
[2018-10-30] MEDS ORDERED: ipratropium/albuterol 3ml nebule NEB PRN (09:20)
[2018-10-30] MEDS ORDERED: docusate sod 100mg capsule PO PRN (09:20)
[2018-10-30] MEDS ORDERED: acetaminophen 325mg tablet PO PRN (09:20)
[2018-10-30 11:15] VITALS: BP 166/91
[2018-10-30] MEDS ORDERED: Permethrin Cream 60gm TP ONE (11:50)
[2018-10-30 13:36] LABS: ABG BASE EXCESS -16.2 mmol/L (-2.0-3.0); ABG HCO3 10.8 mmol/L (22.0-26.0); ABG OXYGEN SATURATION 99.1 % (95-98); ABG PCO2 (T) 29.6 mmHg (32.0-45.0); ABG PH (T) 7.181 (7.350-7.450); ABG PO2 (T) 203.2 mmHg (83-108); FCOHb 0.6 % (0.5-1.5); FLOW 2 L/min; FMetHb 0.3 % (0.3-1.12); FO2Hb 98.2 % (94-100); RESPIRATORY RATE (OBSERVED) 12 b/min; TOTAL HEMOGLOBIN 10.8 G/dl (12.0-16.0)
[2018-10-30] MEDS ORDERED: vancomycin/NS 1 GM ADD-VANTAGE 250 ML IV ONE ×2 (14:00→14:30)
[2018-10-30] MEDS: sodium bicarbonate (8.4%) inj. 50 MEQ in sodium chloride 0.45% 1,000 ML IV SCH (16:07)
[2018-10-30] MEDS: metroNIDAZOLE-Flagyl 500mg/NS 100 ML IV SCH (16:22)
[2018-10-30 18:00] VITALS: BP 124/73
[2018-10-30] MEDS: heparin, porcine 5000 units/ml vial SQ SCH (19:51)
[2018-10-30] MEDS: metoprolol tartrate 25mg tablet PO SCH (20:00)
[2018-10-30] MEDS: ondansetron/PF 4mg/2ml inj IV PRN (20:06)
[2018-10-30 22:00] VITALS: BP 94/60
[2018-10-31] MEDS: metroNIDAZOLE-Flagyl 500mg/NS 100 ML IV SCH ×3 (00:59→16:56)
[2018-10-31] MEDS: gabapentin 400mg capsule PO SCH ×3 (01:12→15:54)
[2018-10-31] MEDS: ondansetron/PF 4mg/2ml inj IV PRN ×3 (01:39→19:20)
[2018-10-31] MEDS ORDERED: potassium Cl 20 mEq SR tablet PO PRN (02:05)
[2018-10-31] MEDS ORDERED: magnesium 4gm in 100ml NS 100 ML IV PRN (02:05)
[2018-10-31] MEDS ORDERED: potassium Cl 40MEQ/NS 500ml 500 ML IV PRN ×2 (02:05)
[2018-10-31] MEDS ORDERED: magnesium Cl slow-release 64mg tablet PO PRN (02:05)
[2018-10-31] MEDS: morphine 2 MG/ML inj. syringe IV PRN ×3 (02:48→15:55)
[2018-10-31] MEDS ORDERED: VANCOMYCIN LEVEL IV SCH (03:00)
[2018-10-31] MEDS: sodium bicarbonate (8.4%) inj. 50 MEQ in sodium chloride 0.45% 1,000 ML IV SCH ×2 (03:33→18:01)
[2018-10-31 06:00] VITALS: BP 93/40
[2018-10-31] MEDS ORDERED: vancomycin/NS 1 GM ADD-VANTAGE 250 ML IV PRN (06:00)
[2018-10-31] MEDS ORDERED: lisinopril 10 MG tablet PO SCH (08:00)
[2018-10-31] MEDS ORDERED: BENAZEPRIL HCL PO SCH (08:00)
[2018-10-31] MEDS: metoprolol tartrate 25mg tablet PO SCH (08:00)
[2018-10-31] MEDS ORDERED: levoFLOXACIN-Levaquin 750MG/D5 150 ML IV SCH (08:00)
[2018-10-31] MEDS ORDERED: pantoprazole 40 MG vial IV SCH (08:00)
[2018-10-31] MEDS: heparin, porcine 5000 units/ml vial SQ SCH ×2 (08:46→19:21)
[2018-10-31 09:06] LABS: BASOPHILS % (AUTO) 0.4 % (0-1); EOSINOPHILS # (AUTO) 0.3 X10'3 (0-0.9); EOSINOPHILS % (AUTO) 2.4 % (0-6); HEMATOCRIT 31.3 % (35.0-45.0); LYMPHOCYTES # (AUTO) 2.5 X10'3 (1.1-4.8); LYMPHOCYTES % (AUTO) 21.6 % (21-51); MEAN CORPUSCULAR HEMOGLOBIN 29.4 PG (27.0-31.0); MEAN CORPUSCULAR VOLUME 91.7 FL (78-98); MEAN PLATELET VOLUME 7.3 FL (7.4-10.4); MONOCYTES # (AUTO) 0.5 X10'3 (0-0.9); MONOCYTES % (AUTO) 4.3 % (2-12); NEUTROPHILS # (AUTO) 8.2 X10'3 (1.8-7.7); NEUTROPHILS % (AUTO) 71.3 % (42-75); PLATELET COUNT 371 X10'3 (140-440); RED BLOOD COUNT 3.41 X10'6 (4.20-5.60); RED CELL DISTRIBUTION WIDTH 18.7 % (11.5-14.5); WHITE BLOOD COUNT 11.5 X10'3 (4.5-11.0)
[2018-10-31 09:16] LABS: ALANINE AMINOTRANSFERASE 21 U/L (12-78); ALBUMIN 2.4 G/DL (3.4-5.0); ALBUMIN/GLOBULIN RATIO 0.8 (1.1-1.5); ALKALINE PHOSPHATASE 94 IU/L (46-116); ANION GAP 17 (8-16); ASPARTATE AMINO TRANSFERASE 14 U/L (10-37); BILIRUBIN,TOTAL 0.3 MG/DL (0.1-1.0); BLOOD UREA NITROGEN 27 MG/DL (7-18); BUN/CREATININE RATIO 19.1 (6.6-38.0); CALCIUM 8.3 MG/DL (8.5-10.1); CHLORIDE 111 MMOL/L (99-107); CHOL/HDL RATIO 2.7 (0.00-4.99); CHOLESTEROL 114 MG/DL (0-200); CREATININE 1.41 MG/DL (0.40-0.90); GLUCOSE 65 MG/DL (70-104); HDL CHOLESTEROL 43 MG/DL (35-60); LDL CHOLESTEROL 36 MG/DL (50-100); LIPASE 471 U/L (73-393); MAGNESIUM 1.5 MG/DL (1.5-2.4); POTASSIUM 4.4 MMOL/L (3.5-5.1); SODIUM 144 MMOL/L (135-145); TOTAL CARBON DIOXIDE 16.1 MMOL/L (24-32); TOTAL PROTEIN 5.3 G/DL (6.4-8.2); TRIGLYCERIDES 195 MG/DL (20-135); VANCOMYCIN,TROUGH 10.6 UG/ML (6.0-14.0); eGFR 37 ML/MIN
[2018-10-31 10:00] VITALS: BP 119/49
[2018-10-31] MEDS ORDERED: haloperidol lactate 5mg/ml inj IM PRN (14:35)
[2018-10-31] MEDS ORDERED: vancomycin/NS 1 GM ADD-VANTAGE 250 ML IV SCH (15:00)
[2018-10-31 15:56] LABS: ABG BASE EXCESS -8.4 mmol/L (-2.0-3.0); ABG HCO3 16.7 mmol/L (22.0-26.0); ABG OXYGEN SATURATION 96.7 % (95-98); ABG PCO2 (T) 32.5 mmHg (32.0-45.0); ABG PH (T) 7.328 (7.350-7.450); ABG PO2 (T) 92.1 mmHg (83-108); FCOHb 0.4 % (0.5-1.5); FMetHb 0.3 % (0.3-1.12); RESPIRATORY RATE (OBSERVED) 28 b/min; TOTAL HEMOGLOBIN 9.7 G/dl (12.0-16.0)
[2018-10-31 18:00] VITALS: BP 106/64
[2018-10-31] MEDS: pantoprazole 40 MG vial IV SCH (19:20)
[2018-10-31] MEDS: lactose-reduced food (Ensure Enlive) - 237ml bottle PO SCH (19:20)
[2018-10-31 22:00] VITALS: BP 87/46
[2018-11-01] VITALS (12 sets, daily range): BP systolic 79–121; BP diastolic 48–76
[2018-11-01] MEDS: gabapentin 400mg capsule PO SCH ×4 (00:36→23:57)
[2018-11-01] MEDS: metroNIDAZOLE-Flagyl 500mg/NS 100 ML IV SCH ×2 (00:36→08:10)
[2018-11-01] MEDS: morphine 2 MG/ML inj. syringe IV PRN ×2 (05:27→22:55)
[2018-11-01 05:45] LABS: BASOPHILS # (AUTO) 0.1 X10'3 (0-0.2); EOSINOPHILS # (AUTO) 0.2 X10'3 (0-0.9); HEMATOCRIT 27.6 % (35.0-45.0); HEMOGLOBIN 8.9 g/dl (12.0-16.0); LYMPHOCYTES % (AUTO) 21.7 % (21-51); MEAN CORPUSCULAR VOLUME 90.6 FL (78-98); MEAN PLATELET VOLUME 7.3 FL (7.4-10.4); MONOCYTES # (AUTO) 0.3 X10'3 (0-0.9); MONOCYTES % (AUTO) 2.8 % (2-12); NEUTROPHILS # (AUTO) 6.5 X10'3 (1.8-7.7); NEUTROPHILS % (AUTO) 72.5 % (42-75); PLATELET COUNT 306 X10'3 (140-440); RED BLOOD COUNT 3.05 X10'6 (4.20-5.60); RED CELL DISTRIBUTION WIDTH 19.4 % (11.5-14.5)
[2018-11-01 06:00] LABS: ALANINE AMINOTRANSFERASE 17 U/L (12-78); ALBUMIN 2.1 G/DL (3.4-5.0); ALBUMIN/GLOBULIN RATIO 0.8 (1.1-1.5); ALKALINE PHOSPHATASE 76 IU/L (46-116); ANION GAP 9 (8-16); ASPARTATE AMINO TRANSFERASE 16 U/L (10-37); BILIRUBIN,TOTAL 0.3 MG/DL (0.1-1.0); BLOOD UREA NITROGEN 16 MG/DL (7-18); BUN/CREATININE RATIO 14.2 (6.6-38.0); CHLORIDE 109 MMOL/L (99-107); CREATININE 1.13 MG/DL (0.40-0.90); GLUCOSE 89 MG/DL (70-104); MAGNESIUM 1.3 MG/DL (1.5-2.4); POTASSIUM 3.1 MMOL/L (3.5-5.1); SODIUM 142 MMOL/L (135-145); TOTAL CARBON DIOXIDE 24.5 MMOL/L (24-32); TOTAL PROTEIN 4.8 G/DL (6.4-8.2); eGFR 47 ML/MIN
[2018-11-01] MEDS: sodium bicarbonate (8.4%) inj. 50 MEQ in sodium chloride 0.45% 1,000 ML IV SCH (08:09)
[2018-11-01] MEDS: heparin, porcine 5000 units/ml vial SQ SCH ×2 (08:09→20:20)
[2018-11-01] MEDS: pantoprazole 40 MG vial IV SCH (08:10)
[2018-11-01] MEDS: potassium Cl 20 mEq SR tablet PO PRN ×3 (08:15→17:29)
[2018-11-01] MEDS: lactose-reduced food (Ensure Enlive) - 237ml bottle PO SCH ×3 (08:16→18:00)
[2018-11-01] MEDS ORDERED: normal saline 1000ml 1,000 ML IV SCH ×2 (08:50→09:55)
[2018-11-01] MEDS ORDERED: normal saline 1000ml 1,000 ML IV ONE (09:55)
[2018-11-01] MEDS ORDERED: DOPamine 400mg/D5W 250ml 250 ML IV SCH (11:50)
[2018-11-01 12:59] LABS: BASOPHILS # (AUTO) 0.1 X10'3 (0-0.2); BASOPHILS % (AUTO) 0.6 % (0-1); EOSINOPHILS # (AUTO) 0.2 X10'3 (0-0.9); EOSINOPHILS % (AUTO) 2.2 % (0-6); HEMATOCRIT 29.3 % (35.0-45.0); HEMOGLOBIN 9.4 g/dl (12.0-16.0); LYMPHOCYTES # (AUTO) 1.5 X10'3 (1.1-4.8); LYMPHOCYTES % (AUTO) 16.3 % (21-51); MEAN CORPUSCULAR HEMOGLOBIN 29.4 PG (27.0-31.0); MEAN CORPUSCULAR HGB CONC 32.1 % (33.0-36.5); MEAN CORPUSCULAR VOLUME 91.4 FL (78-98); MEAN PLATELET VOLUME 6.9 FL (7.4-10.4); MONOCYTES # (AUTO) 0.4 X10'3 (0-0.9); MONOCYTES % (AUTO) 4.9 % (2-12); NEUTROPHILS # (AUTO) 6.8 X10'3 (1.8-7.7); PLATELET COUNT 281 X10'3 (140-440); RED CELL DISTRIBUTION WIDTH 19.2 % (11.5-14.5)
[2018-11-01] MEDS: ondansetron/PF 4mg/2ml inj IV PRN (13:45)
[2018-11-01 13:54] LABS: OCCULT BLOOD STOOL NEGATIVE (Neg)
[2018-11-01 18:36] LABS: HEMOGLOBIN 10.1 g/dl (12.0-16.0); RED BLOOD COUNT 3.24 X10'6 (4.20-5.60); WHITE BLOOD COUNT 10.9 X10'3 (4.5-11.0)
[2018-11-01 18:37] LABS: BASOPHILS # (AUTO) 0.1 X10'3 (0-0.2); EOSINOPHILS # (AUTO) 0.3 X10'3 (0-0.9); EOSINOPHILS % (AUTO) 2.5 % (0-6); HEMATOCRIT 29.6 % (35.0-45.0); LYMPHOCYTES # (AUTO) 2.2 X10'3 (1.1-4.8); LYMPHOCYTES % (AUTO) 19.9 % (21-51); MEAN CORPUSCULAR HEMOGLOBIN 31.2 PG (27.0-31.0); MEAN CORPUSCULAR HGB CONC 34.2 % (33.0-36.5); MEAN CORPUSCULAR VOLUME 91.2 FL (78-98); MEAN PLATELET VOLUME 7.1 FL (7.4-10.4); MONOCYTES # (AUTO) 0.6 X10'3 (0-0.9); MONOCYTES % (AUTO) 5.1 % (2-12); NEUTROPHILS # (AUTO) 7.7 X10'3 (1.8-7.7); NEUTROPHILS % (AUTO) 71.5 % (42-75); PLATELET COUNT 274 X10'3 (140-440); RED CELL DISTRIBUTION WIDTH 18.6 % (11.5-14.5)
[2018-11-01] MEDS: pantoprazole 40mg Tablet.DR PO SCH (20:21)
[2018-11-01] MEDS: Potassium Cl inj 20 MEQ in normal saline 1000ml 990 ML IV SCH (22:38)
[2018-11-01] MEDS: metroNIDAZOLE 500mg tablet PO SCH (23:57)
[2018-11-02 02:00] VITALS: BP 102/57
[2018-11-02 02:55] LABS: EOSINOPHILS % (AUTO) 2.5 % (0-6); HEMATOCRIT 25.4 % (35.0-45.0); HEMOGLOBIN 8.6 g/dl (12.0-16.0); LYMPHOCYTES % (AUTO) 35.4 % (21-51); MEAN CORPUSCULAR HEMOGLOBIN 30.4 PG (27.0-31.0); MEAN CORPUSCULAR HGB CONC 33.8 % (33.0-36.5); MEAN CORPUSCULAR VOLUME 90.2 FL (78-98); MEAN PLATELET VOLUME 7.5 FL (7.4-10.4); MONOCYTES % (AUTO) 5.6 % (2-12); NEUTROPHILS % (AUTO) 55.7 % (42-75); PLATELET COUNT 226 X10'3 (140-440); RED BLOOD COUNT 2.82 X10'6 (4.20-5.60)
[2018-11-02 02:56] LABS: BASOPHILS # (AUTO) 0.1 X10'3 (0-0.2); BASOPHILS % (AUTO) 0.8 % (0-1); EOSINOPHILS # (AUTO) 0.2 X10'3 (0-0.9); LYMPHOCYTES # (AUTO) 2.8 X10'3 (1.1-4.8); MONOCYTES # (AUTO) 0.4 X10'3 (0-0.9); NEUTROPHILS # (AUTO) 4.5 X10'3 (1.8-7.7)
[2018-11-02 03:01] LABS: ALANINE AMINOTRANSFERASE 15 U/L (12-78); ALBUMIN/GLOBULIN RATIO 0.8 (1.1-1.5); ALKALINE PHOSPHATASE 88 IU/L (46-116); ANION GAP 10 (8-16); ASPARTATE AMINO TRANSFERASE 21 U/L (10-37); BILIRUBIN,TOTAL 0.2 MG/DL (0.1-1.0); BLOOD UREA NITROGEN 12 MG/DL (7-18); CALCIUM 7.7 MG/DL (8.5-10.1); CHLORIDE 109 MMOL/L (99-107); CREATININE 0.92 MG/DL (0.40-0.90); GLUCOSE 100 MG/DL (70-104); MAGNESIUM 2.6 MG/DL (1.5-2.4); POTASSIUM 3.9 MMOL/L (3.5-5.1); SODIUM 141 MMOL/L (135-145); TOTAL CARBON DIOXIDE 21.6 MMOL/L (24-32); TOTAL PROTEIN 4.5 G/DL (6.4-8.2); eGFR 60 ML/MIN
[2018-11-02 06:00] VITALS: BP 83/55
[2018-11-02] MEDS: gabapentin 400mg capsule PO SCH ×3 (07:35→23:54)
[2018-11-02] MEDS: metroNIDAZOLE 500mg tablet PO SCH ×3 (07:35→23:54)
[2018-11-02] MEDS: pantoprazole 40mg Tablet.DR PO SCH ×2 (07:35→20:24)
[2018-11-02] MEDS: heparin, porcine 5000 units/ml vial SQ SCH ×2 (07:35→20:25)
[2018-11-02] MEDS: morphine 2 MG/ML inj. syringe IV PRN ×2 (07:41→22:28)
[2018-11-02] MEDS: lactose-reduced food (Ensure Enlive) - 237ml bottle PO SCH ×3 (07:53→20:24)
[2018-11-02 08:00] VITALS: BP 112/80
[2018-11-02] MEDS ORDERED: levoFLOXACIN-Levaquin 750MG/D5 150 ML IV SCH (08:00)
[2018-11-02 11:00] VITALS: BP 99/81
[2018-11-02] MEDS ORDERED: levoFLOXACIN 750MG TABLET PO SCH (11:00)
[2018-11-02] MEDS: ondansetron/PF 4mg/2ml inj IV PRN ×2 (13:44→23:54)
[2018-11-02] MEDS ORDERED: VANCOMYCIN LEVEL IV ONE (14:30)
[2018-11-02] MEDS: Potassium Cl inj 20 MEQ in normal saline 1000ml 990 ML IV SCH ×2 (16:48→22:28)
[2018-11-02] MEDS: emollient combination-Eucerin 250 ML LOTION TP SCH (17:45)
[2018-11-02 18:15] VITALS: BP 127/80
[2018-11-02] MEDS: lactobacillus rhamnosus 10,000 MMU CELLS/CAPSULE PO SCH (20:24)
[2018-11-02 22:00] VITALS: BP 122/72
[2018-11-03 06:07] LABS: BASOPHILS % (AUTO) 0.5 % (0-1); EOSINOPHILS # (AUTO) 0.2 X10'3 (0-0.9); EOSINOPHILS % (AUTO) 2.6 % (0-6); HEMATOCRIT 25.4 % (35.0-45.0); HEMOGLOBIN 8.2 g/dl (12.0-16.0); LYMPHOCYTES # (AUTO) 2.1 X10'3 (1.1-4.8); LYMPHOCYTES % (AUTO) 24.2 % (21-51); MEAN CORPUSCULAR HEMOGLOBIN 29.6 PG (27.0-31.0); MEAN CORPUSCULAR HGB CONC 32.5 % (33.0-36.5); MEAN CORPUSCULAR VOLUME 91.1 FL (78-98); MEAN PLATELET VOLUME 7.4 FL (7.4-10.4); MONOCYTES # (AUTO) 0.5 X10'3 (0-0.9); MONOCYTES % (AUTO) 6.1 % (2-12); NEUTROPHILS # (AUTO) 5.9 X10'3 (1.8-7.7); NEUTROPHILS % (AUTO) 66.6 % (42-75); PLATELET COUNT 229 X10'3 (140-440); RED BLOOD COUNT 2.78 X10'6 (4.20-5.60); RED CELL DISTRIBUTION WIDTH 19.5 % (11.5-14.5); WHITE BLOOD COUNT 8.9 X10'3 (4.5-11.0)
[2018-11-03 06:24] LABS: ALANINE AMINOTRANSFERASE 17 U/L (12-78); ALBUMIN 1.9 G/DL (3.4-5.0); ALBUMIN/GLOBULIN RATIO 0.7 (1.1-1.5); ALKALINE PHOSPHATASE 82 IU/L (46-116); ANION GAP 11 (8-16); ASPARTATE AMINO TRANSFERASE 21 U/L (10-37); BILIRUBIN,TOTAL 0.2 MG/DL (0.1-1.0); BLOOD UREA NITROGEN 9 MG/DL (7-18); CALCIUM 7.8 MG/DL (8.5-10.1); CHLORIDE 110 MMOL/L (99-107); CREATININE 0.82 MG/DL (0.40-0.90); GLUCOSE 97 MG/DL (70-104); MAGNESIUM 1.7 MG/DL (1.5-2.4); POTASSIUM 4.4 MMOL/L (3.5-5.1); SODIUM 142 MMOL/L (135-145); TOTAL CARBON DIOXIDE 21.5 MMOL/L (24-32); TOTAL PROTEIN 4.5 G/DL (6.4-8.2); eGFR 69 ML/MIN
[2018-11-03 08:05] VITALS: BP 90/57
[2018-11-03] MEDS: lactobacillus rhamnosus 10,000 MMU CELLS/CAPSULE PO SCH (08:10)
[2018-11-03] MEDS: metroNIDAZOLE 500mg tablet PO SCH (08:11)
[2018-11-03] MEDS: gabapentin 400mg capsule PO SCH (08:11)
[2018-11-03] MEDS: pantoprazole 40mg Tablet.DR PO SCH (08:11)
[2018-11-03] MEDS: heparin, porcine 5000 units/ml vial SQ SCH (08:12)
[2018-11-03] MEDS: lactose-reduced food (Ensure Enlive) - 237ml bottle PO SCH ×2 (08:12→13:00)
[2018-11-03] MEDS: emollient combination-Eucerin 250 ML LOTION TP SCH (08:13)
[2018-11-03] MEDS: Potassium Cl inj 20 MEQ in normal saline 1000ml 990 ML IV SCH (10:18)
[2018-11-03 10:38] VITALS: BP 119/83
[2018-11-03 11:45] VITALS: BP_SYST 112; BP_SYST 149; BP_SYST 172; BP_DIAS 71; BP_DIAS 74; BP_DIAS 81
== END 2018-11-03 14:20 | disposition home health service (06) | DRG 871 ==
LOC: ER 06:00 → ED HOLD 09:20 → ORTHO 4S 11:00 → PCU 3S 11-01 13:10 → ORTHO 4S 11-02 15:10
PROVIDERS: ADMIT Family Medicine; ATTEND Family Medicine
DX: A41.9 Sepsis, unspecified organism (principal); E43 Unspecified severe protein-calorie malnutrition; K85.90 Acute pancreatitis without necrosis or infection, unspecified; N17.9 Acute kidney failure, unspecified; N39.0 Urinary tract infection, site not specified; E87.2 Acidosis; Z68.1 Body mass index [BMI] 19.9 or less, adult; K50.90 Crohn's disease, unspecified, without complications; B19.20 Unspecified viral hepatitis C without hepatic coma; K52.9 Noninfective gastroenteritis and colitis, unspecified; I95.9 Hypotension, unspecified; F32.9 Major depressive disorder, single episode, unspecified; E87.6 Hypokalemia; K43.9 Ventral hernia without obstruction or gangrene; D64.9 Anemia, unspecified; K29.70 Gastritis, unspecified, without bleeding; G89.29 Other chronic pain; M54.9 Dorsalgia, unspecified; R74.8 Abnormal levels of other serum enzymes; E86.0 Dehydration; I10 Essential (primary) hypertension; J44.9 Chronic obstructive pulmonary disease, unspecified; F17.210 Nicotine dependence, cigarettes, uncomplicated; Z90.49 Acquired absence of other specified parts of digestive tract; Z98.1 Arthrodesis status; Z88.8 Allergy status to other drugs, medicaments and biological substances; Z79.899 Other long term (current) drug therapy; Z87.01 Personal history of pneumonia (recurrent); Z87.11 Personal history of peptic ulcer disease
CPT/HCPCS: 36415; 36600; 71045; 74176; 80053; 80061; 80202; 80305; 81001; 82272; 82803; 83605; 83690; 83735; 84145; 85018; 85025; 85610; 85730; 87040; 87070; 87088; 93005; 94760; 96365; 96375; 97110; 97116; 97162; 97530; 99285; C9113; G0378; J0696; J0780; J1644; J1956; J2270; J2405; J3370; J3475; J3480; J3490; J7030

== ENCOUNTER 2018-11-12 12:35 | Inpatient (IN) | payer MEDICARE, OTHER ==
[~2018-11-12] VITALS: Ht 162.6 cm; Wt 40.0 kg
[~2018-11-12 12:35] MED LIST changes: +ACET-2119 PO; +ATRIN INH; +BENA20TA76 PO; +CYPR4TAB57 PO; -LACT1CAP65 PO; -METR-211 PO; -OXYB5TAB11 PO; -SUCR1TAB PO; -TRAZ-218 PO
--- NOTE | 2018-11-12 12:46 | NUR ---
PATIENT TO CT.
[2018-11-12] MEDS ORDERED: ondansetron/PF 4mg/2ml inj IV ONE (13:00)
[2018-11-12] MEDS ORDERED: morphine 4 MG/ML inj SYRINge IV ONE ×2 (13:00→19:20)
[2018-11-12 13:49] LABS: HEMATOCRIT 36.7 % (35.0-45.0); HEMOGLOBIN 11.9 g/dl (12.0-16.0); MEAN CORPUSCULAR HGB CONC 32.4 % (33.0-36.5); MEAN CORPUSCULAR VOLUME 92.6 FL (78-98); MEAN PLATELET VOLUME 6.9 FL (7.4-10.4); PLATELET COUNT 409 X10'3 (140-440); RED BLOOD COUNT 3.96 X10'6 (4.20-5.60); RED CELL DISTRIBUTION WIDTH 21.2 % (11.5-14.5); WHITE BLOOD COUNT 16.8 X10'3 (4.5-11.0)
[2018-11-12 14:04] LABS: ALANINE AMINOTRANSFERASE 20 U/L (12-78); ALBUMIN 3.2 G/DL (3.4-5.0); ALBUMIN/GLOBULIN RATIO 0.8 (1.1-1.5); ALKALINE PHOSPHATASE 123 IU/L (46-116); ANION GAP 23 (8-16); ASPARTATE AMINO TRANSFERASE 18 U/L (10-37); BILIRUBIN,TOTAL 0.5 MG/DL (0.1-1.0); BLOOD UREA NITROGEN 12 MG/DL (7-18); BUN/CREATININE RATIO 11.5 (6.6-38.0); CALCIUM 9.1 MG/DL (8.5-10.1); CHLORIDE 100 MMOL/L (99-107); CREATININE 1.04 MG/DL (0.40-0.90); GLUCOSE 72 MG/DL (70-104); POTASSIUM 3.5 MMOL/L (3.5-5.1); SODIUM 140 MMOL/L (135-145); TOTAL CARBON DIOXIDE 16.9 MMOL/L (24-32); TOTAL PROTEIN 7.3 G/DL (6.4-8.2); eGFR 52 ML/MIN
[2018-11-12 14:05] LABS: PARTIAL THROMBOPLASTIN TIME 30 SECONDS (22-32); PROTHROMBIN TIME 10.3 SECONDS (9.0-12.0)
[2018-11-12 14:08] LABS: TROPONIN I < 0.04 NG/ML (0.0-0.05)
[2018-11-12 15:07] LABS: ANISOCYTOSIS 3+; PLATELET ESTIMATE NORMAL; ROULEAUX 1+; TOTAL CELLS COUNTED 100
[2018-11-12] MEDS ORDERED: LORazepam 2 mg/ml vial IV ONE (15:20)
[2018-11-12] MEDS ORDERED: iohexol 350MG/ML 100ml bottle IV ONE (15:40)
[2018-11-12] MEDS ORDERED: levetiracetam inj 500 MG in normal saline 1000ml 100 ML IV STA (17:01)
--- NOTE | 2018-11-12 17:19 | NUR ---
TELENEURO CONSULT INITIATED
[2018-11-12] MEDS ORDERED: aspirin 325mg tablet PO ONE (17:35)
--- NOTE | 2018-11-12 17:38 | NUR ---
pt to mri
[2018-11-12] MEDS: normal saline 1000ml 1,000 ML IV SCH (20:32)
[2018-11-12] MEDS: atorvastatin 20mg tablet PO SCH (20:35)
[2018-11-12] MEDS: potassium Cl 20mEq in NS 1,000 ML IV SCH (20:39)
[2018-11-12] MEDS ORDERED: HYDROmorphone 1 mg/ml syringe IV PRN (20:40)
[2018-11-12] MEDS ORDERED: magnesium hydroxide 30ml (MOM) UD suspension PO PRN (20:40)
[2018-11-12] MEDS ORDERED: acetaminophen 325mg tablet PO PRN ×2 (20:40)
[2018-11-12] MEDS ORDERED: mag hydrox/Alum hydrox/simeth 30ml oral suspension PO PRN (20:40)
[2018-11-12] MEDS ORDERED: bisacodyl 10mg suppository rectal RC PRN (20:40)
[2018-11-12] MEDS ORDERED: normal saline 500ml IV soln 500 ML IV ONE (20:50)
[2018-11-12] MEDS ORDERED: temazepam 15mg capsule PO PRN (21:00)
[2018-11-12 21:16] LABS: ABG BASE EXCESS -9.5 mmol/L (-2.0-3.0); ABG HCO3 15.6 mmol/L (22.0-26.0); ABG OXYGEN SATURATION 92.2 % (95-98); ABG PCO2 (T) 30.6 mmHg (32.0-45.0); ABG PH (T) 7.322 (7.350-7.450); ABG PO2 (T) 64.8 mmHg (83-108); ALLEN'S TEST Positive; FCOHb 0.5 % (0.5-1.5); FLOW 4 L/min; FMetHb 0.3 % (0.3-1.12); FO2Hb 91.5 % (94-100); PATIENT TEMPERATURE 36.5; TOTAL HEMOGLOBIN 10.1 G/dl (12.0-16.0)
[2018-11-12 21:56] LABS: URINE AMPHETAMINE SCREEN NEGATIVE (Neg); URINE BARBITUATE SCREEN NEGATIVE (Neg); URINE BENZODIAZEPINES SCREEN NEGATIVE (Neg); URINE CANNABINOID SCREEN NEGATIVE (Neg); URINE COCAINE SCREEN NEGATIVE (Neg); URINE METHADONE SCREEN NEGATIVE (Neg); URINE OPIATE SCREEN POSITIVE (Neg); URINE PHENCYCLIDINE SCREEN NEGATIVE (Neg)
[2018-11-12 22:34] LABS: CLARITY,URINE CLEAR (Clear); COLOR,URINE YELLOW (Yellow); GLUCOSE, URINE NEGATIVE (Neg); KETONES,URINE 40 mg/dl (Neg); LEUKOCYTE ESTERASE ,URINE NEGATIVE (Neg); NITRITES, URINE NEGATIVE (Neg); OCCULT BLOOD,URINE NEGATIVE (Neg); PH,URINE 6.5 (4.8-8.0); PROTEIN,URINE 30 mg/dl (Neg); UROBILINOGEN,URINE 0.2 E.U/dL (0.2-1.0)
[2018-11-12 22:36] LABS: UA COLLECTION TYPE FOLEY CATH
[2018-11-12 23:03] LABS: BACTERIA,URINE NONE SEEN /HPF (Neg); HYALINE CASTS 0-3 /LPF (NEGATIVE); MUCUS STRANDS FEW /LPF (Neg); RBC,URINE 0-2 /HPF (0-2); SQUAMOUS EPITHELIAL CELL,UR FEW /LPF (FEW); WBC,URINE 0-4 /HPF (0-4)
[2018-11-13] MEDS: morphine 2 MG/ML inj. syringe IV PRN ×5 (02:24→23:46)
[2018-11-13 03:05] LABS: ALANINE AMINOTRANSFERASE 15 U/L (12-78); ALBUMIN 2.7 G/DL (3.4-5.0); ALBUMIN/GLOBULIN RATIO 0.8 (1.1-1.5); ALKALINE PHOSPHATASE 109 IU/L (46-116); ANION GAP 18 (8-16); ASPARTATE AMINO TRANSFERASE 16 U/L (10-37); BILIRUBIN,TOTAL 0.4 MG/DL (0.1-1.0); BLOOD UREA NITROGEN 12 MG/DL (7-18); BUN/CREATININE RATIO 13.8 (6.6-38.0); CALCIUM 8.2 MG/DL (8.5-10.1); CHLORIDE 106 MMOL/L (99-107); CHOL/HDL RATIO 3.3 (0.00-4.99); CHOLESTEROL 123 MG/DL (0-200); CREATININE 0.87 MG/DL (0.40-0.90); GLUCOSE 71 MG/DL (70-104); HDL CHOLESTEROL 37 MG/DL (35-60); LDL CHOLESTEROL 42 MG/DL (50-100); MAGNESIUM 1.3 MG/DL (1.5-2.4); PHOSPHORUS 3.4 MG/DL (2.3-4.5); POTASSIUM 3.2 MMOL/L (3.5-5.1); SODIUM 142 MMOL/L (135-145); TOTAL CARBON DIOXIDE 17.6 MMOL/L (24-32); TOTAL PROTEIN 6.3 G/DL (6.4-8.2); TRIGLYCERIDES 150 MG/DL (20-135); eGFR 64 ML/MIN
[2018-11-13 04:27] LABS: HEMOGLOBIN A1C 4.3 % (4.5-6.2)
--- NOTE | 2018-11-13 07:37 | NUR ---
received report from jovan kenyon
[2018-11-13] MEDS ORDERED: pantoprazole 40 MG vial IV ONE (08:00)
[2018-11-13] MEDS: atorvastatin 20mg tablet PO SCH (08:00)
[2018-11-13] MEDS ORDERED: aspirin/dipyridamole 25mg/200mg SR. capsule PO SCH (08:00)
[2018-11-13] MEDS: docusate sod 100mg capsule PO SCH ×2 (08:00→20:00)
[2018-11-13] MEDS: clopidogrel 75mg tablet PO SCH (08:00)
[2018-11-13 08:11] VITALS: BP 95/71
--- NOTE | 2018-11-13 08:11 | NUR ---
PT ARRIVED ON FLOOR IN [facility] YELLING OUT
[2018-11-13] MEDS: nicotine 14mg patch - 24hr TD SCH (08:27)
[2018-11-13] MEDS: potassium Cl 20mEq in NS 1,000 ML IV SCH (09:39)
--- NOTE | 2018-11-13 10:27 | NUR ---
Calorie count consult: Pt is previously NPO pending BSS with COST SPECIALIST, will hold off on calorie count until diet is advanced. Recommend low-residue heart healthy diet with texture modification per COST SPECIALIST d/t pt with hx of HTN, COPD, and Crohn's. Pt previously admitted 10/30/18 triggered for malnutrition, pt currently with cachectic appearance per H&P and bedside RN as well as with severe wt loss of 15% in 5 months with documented wt 47.4 kg at previous admission 06/05/2018 with current wt 40 kg, pt currently meets criteria for malnutrition. Pt received Ensure Enlive to meet nutrient needs at previous visit 10/30/2018, will monitor need for ONS with diet advancement this visit. Pt with previous documented height of 57", current documented height 64", d/w RN who states she is currently unable to obtain new height d/t pt's current status, current documented height likely inaccurate. Recalculated BMI with height 57" is in the appropriate range at 19. Pt with low Klaus score of 12, pt currently A/O x 2 per physical assessment, protein education not appropriate at this time. Will continue to follow. Recommendations: 1) Advance to low-residue heart healthy diet with texture modification per COST SPECIALIST 2) Monitor need for ONS 3) Wt per rx Addendum: 11/13/18 at [address] Amended: Links added.
[2018-11-13] MEDS ORDERED: potassium Cl 20 mEq SR tablet PO PRN ×2 (10:40)
[2018-11-13] MEDS ORDERED: aspirin 300mg supp.rect RC SCH ×2 (10:40→11:15)
[2018-11-13] MEDS ORDERED: potassium Cl 40MEQ/NS 500ml 500 ML IV PRN ×2 (10:40)
[2018-11-13] MEDS ORDERED: magnesium 4gm in 100ml NS 100 ML IV PRN ×2 (10:40→11:20)
[2018-11-13] MEDS ORDERED: magnesium Cl slow-release 64mg tablet PO PRN (10:40)
[2018-11-13 11:34] LABS: BASOPHILS # (AUTO) 0.1 X10'3 (0-0.2); BASOPHILS % (AUTO) 0.6 % (0-1); EOSINOPHILS # (AUTO) 0.1 X10'3 (0-0.9); EOSINOPHILS % (AUTO) 0.7 % (0-6); HEMATOCRIT 33.7 % (35.0-45.0); HEMOGLOBIN 10.9 g/dl (12.0-16.0); LYMPHOCYTES # (AUTO) 2.4 X10'3 (1.1-4.8); LYMPHOCYTES % (AUTO) 14.5 % (21-51); MEAN CORPUSCULAR HEMOGLOBIN 30.1 PG (27.0-31.0); MEAN CORPUSCULAR HGB CONC 32.3 % (33.0-36.5); MEAN CORPUSCULAR VOLUME 93.2 FL (78-98); MEAN PLATELET VOLUME 7.1 FL (7.4-10.4); MONOCYTES # (AUTO) 0.5 X10'3 (0-0.9); MONOCYTES % (AUTO) 2.8 % (2-12); NEUTROPHILS # (AUTO) 13.5 X10'3 (1.8-7.7); NEUTROPHILS % (AUTO) 81.4 % (42-75); PLATELET COUNT 320 X10'3 (140-440); RED BLOOD COUNT 3.62 X10'6 (4.20-5.60); RED CELL DISTRIBUTION WIDTH 21.8 % (11.5-14.5); WHITE BLOOD COUNT 16.6 X10'3 (4.5-11.0)
[2018-11-13] MEDS: aspirin 300mg supp.rect RC SCH (12:14)
[2018-11-13] MEDS: enoxaparin 40mg/0.4ml syringe SUBCUT SCH (12:17)
[2018-11-13] MEDS: normal saline 1000ml 1,000 ML IV SCH (12:19)
[2018-11-13 12:39] VITALS: BP 126/86
[2018-11-13 14:25] LABS: PARTIAL THROMBOPLASTIN TIME 41 SECONDS (22-32); PROTHROMBIN TIME 10.4 SECONDS (9.0-12.0)
[2018-11-13 16:39] VITALS: BP 114/74
--- NOTE | 2018-11-13 17:42 | NUR ---
i initiated tele neuro consult, computer for consult plugged in and in pt rm
[2018-11-13 18:00] VITALS: BP 133/52
--- NOTE | 2018-11-13 18:04 | NUR ---
gave report to jovan moser
--- NOTE | 2018-11-13 18:44 | NUR ---
RECEIVED REPORT FROM TAWANNA STOREY AND ASSUMED PATIENT CARE
[2018-11-13 22:06] VITALS: BP 125/78
[2018-11-14] MEDS: normal saline 1000ml 1,000 ML IV SCH (05:32)
[2018-11-14] MEDS: morphine 2 MG/ML inj. syringe IV PRN ×2 (05:32→12:42)
[2018-11-14 06:00] VITALS: BP 110/62
--- NOTE | 2018-11-14 06:30 | NUR ---
received report from jovan moser
--- NOTE | 2018-11-14 06:54 | NUR ---
received report from jovan conrad Addendum: 11/14/18 at 0655 by Sarah Morrison RN above message does not apply to this pt
--- NOTE | 2018-11-14 07:20 | NUR ---
sent a page to hospitalist about pt co2 being 13.0, no new orders at this time, continue to monitor
[2018-11-14 07:23] LABS: ALANINE AMINOTRANSFERASE 14 U/L (12-78); ALBUMIN 2.4 G/DL (3.4-5.0); ALBUMIN/GLOBULIN RATIO 0.7 (1.1-1.5); ALKALINE PHOSPHATASE 93 IU/L (46-116); ANION GAP 21 (8-16); ASPARTATE AMINO TRANSFERASE 16 U/L (10-37); BASOPHILS % (AUTO) 0.1 % (0-1); BILIRUBIN,TOTAL 0.3 MG/DL (0.1-1.0); BLOOD UREA NITROGEN 15 MG/DL (7-18); CALCIUM 8.1 MG/DL (8.5-10.1); CHLORIDE 112 MMOL/L (99-107); CREATININE 0.94 MG/DL (0.40-0.90); EOSINOPHILS # (AUTO) 0.2 X10'3 (0-0.9); EOSINOPHILS % (AUTO) 1.9 % (0-6); GLUCOSE 53 MG/DL (70-104); HEMATOCRIT 30.4 % (35.0-45.0); HEMOGLOBIN 9.7 g/dl (12.0-16.0); LYMPHOCYTES # (AUTO) 2.1 X10'3 (1.1-4.8); LYMPHOCYTES % (AUTO) 18.5 % (21-51); MAGNESIUM 2.7 MG/DL (1.5-2.4); MEAN CORPUSCULAR HEMOGLOBIN 29.7 PG (27.0-31.0); MEAN CORPUSCULAR HGB CONC 31.9 % (33.0-36.5); MEAN CORPUSCULAR VOLUME 92.9 FL (78-98); MEAN PLATELET VOLUME 7.1 FL (7.4-10.4); MONOCYTES # (AUTO) 0.7 X10'3 (0-0.9); NEUTROPHILS # (AUTO) 8.3 X10'3 (1.8-7.7); NEUTROPHILS % (AUTO) 73.5 % (42-75); PLATELET COUNT 400 X10'3 (140-440); POTASSIUM 3.3 MMOL/L (3.5-5.1); RED BLOOD COUNT 3.28 X10'6 (4.20-5.60); RED CELL DISTRIBUTION WIDTH 21.6 % (11.5-14.5); SODIUM 146 MMOL/L (135-145); TOTAL PROTEIN 5.9 G/DL (6.4-8.2); WHITE BLOOD COUNT 11.3 X10'3 (4.5-11.0); eGFR 59 ML/MIN
[2018-11-14] MEDS: K and/or MAG REPLACEMENT MC SCH (07:52)
[2018-11-14] MEDS: aspirin 300mg supp.rect RC SCH (08:00)
[2018-11-14] MEDS ORDERED: LIDOcaine 1% 30ml vial 5 ML in potassium Cl 40MEQ/NS 500ml 500 ML IV PRN (08:00)
[2018-11-14] MEDS ORDERED: aspirin 300mg supp.rect RC SCH (08:00)
[2018-11-14] MEDS: clopidogrel 75mg tablet PO SCH (08:06)
[2018-11-14] MEDS: atorvastatin 20mg tablet PO SCH (08:07)
[2018-11-14] MEDS: docusate sod 100mg capsule PO SCH ×2 (08:08→19:47)
[2018-11-14] MEDS: nicotine 14mg patch - 24hr TD SCH (08:09)
[2018-11-14] MEDS: enoxaparin 40mg/0.4ml syringe SUBCUT SCH (08:10)
[2018-11-14] MEDS: HYDROcodone/acetaminophen 5mg/325mg tablet PO PRN ×3 (09:20→19:05)
[2018-11-14 10:00] VITALS: BP 130/81
[2018-11-14] MEDS: sodium bicarbonate (8.4%) inj. 100 MEQ in dextrose 5%-water 1,000 ML IV SCH ×2 (10:53→15:05)
[2018-11-14 11:41] LABS: ANISOCYTOSIS 3+; PLATELET ESTIMATE NORMAL
[2018-11-14] MEDS: potassium Cl 20mEq in NS 1,000 ML IV SCH (14:23)
--- NOTE | 2018-11-14 15:58 | NUR ---
Calcount consult: Pt s/p BSS, diet now advanced to pureed with thin liquid. D/w dietary and bedside RN to begin calorie count to last for three days (11/15-11/18). Current documented intake 25% x 1 meal. Will continue to follow. Calorie count consult: Pt is previously NPO pending BSS with POSTAL CLERK, will hold off on calorie count until diet is advanced. Recommend low-residue heart healthy diet with texture modification per POSTAL CLERK d/t pt with hx of HTN, COPD, and Crohn's. Pt previously admitted 10/30/18 triggered for malnutrition, pt currently with cachectic appearance per H&P and bedside RN as well as with severe wt loss of 15% in 5 months with documented wt 47.4 kg at previous admission 06/05/2018 with current wt 40 kg, pt currently meets criteria for malnutrition. Pt received Ensure Enlive to meet nutrient needs at previous visit 10/30/2018, will monitor need for ONS with diet advancement this visit. Pt with previous documented height of 57", current documented height 64", d/w RN who states she is currently unable to obtain new height d/t pt's current status, current documented height likely inaccurate. Recalculated BMI with height 57" is in the appropriate range at 19. Pt with low Klaus score of 12, pt currently A/O x 2 per physical assessment, protein education not appropriate at this time. Will continue to follow. Recommendations: 1) Advance to low-residue heart healthy diet with texture modification per POSTAL CLERK 2) Monitor need for ONS 3) Wt per rx Addendum: 11/14/18 at [address] Amended: Links added.
[2018-11-14] MEDS ORDERED: ipratropium/albuterol 3ml nebule NEB PRN (17:35)
[2018-11-14 18:00] VITALS: BP 128/65
--- NOTE | 2018-11-14 18:07 | NUR ---
gave report to jovan qiu
--- NOTE | 2018-11-14 18:10 | NUR ---
Patient in room ORTHO 4009. I have received report from CORDELIA Guerrero and had the opportunity to ask questions and assume patient care.
[2018-11-14] MEDS: morphine 4 MG/ML inj SYRINge IV PRN (21:31)
[2018-11-14 22:00] VITALS: BP 129/84
[2018-11-14] MEDS: gabapentin 400mg capsule PO SCH (23:28)
--- NOTE | 2018-11-14 23:49 | NUR ---
Problems reprioritized. Patient report given, questions answered & plan of care reviewed with CORDELIA Lloyd.
[2018-11-15] VITALS (9 sets, daily range): BP systolic 77–130; BP diastolic 46–84
[2018-11-15 05:09] LABS: RPR Non Reactive (Non Reactive)
[2018-11-15] MEDS: sodium bicarbonate (8.4%) inj. 100 MEQ in dextrose 5%-water 1,000 ML IV SCH (06:00)
--- NOTE | 2018-11-15 06:47 | NUR ---
Problems reprioritized. Patient report given, questions answered & plan of care reviewed with CORDELIA Cortez.
[2018-11-15] MEDS: pantoprazole 40mg Tablet.DR PO SCH (07:30)
[2018-11-15] MEDS: nicotine 14mg patch - 24hr TD SCH (08:00)
[2018-11-15] MEDS: K and/or MAG REPLACEMENT MC SCH (08:00)
[2018-11-15] MEDS: atorvastatin 20mg tablet PO SCH (08:37)
[2018-11-15] MEDS: clopidogrel 75mg tablet PO SCH (08:37)
[2018-11-15] MEDS: gabapentin 400mg capsule PO SCH ×3 (08:37→23:44)
[2018-11-15] MEDS: aspirin 300mg supp.rect RC SCH (08:37)
[2018-11-15] MEDS: docusate sod 100mg capsule PO SCH ×2 (08:37→20:00)
[2018-11-15] MEDS: enoxaparin 40mg/0.4ml syringe SUBCUT SCH (08:38)
[2018-11-15] MEDS: morphine 4 MG/ML inj SYRINge IV PRN ×2 (09:02→12:38)
[2018-11-15] MEDS: piperacillin/tazo 3.375gm/50ml 50 ML IV SCH ×3 (12:27→23:36)
--- NOTE | 2018-11-15 14:36 | NUR ---
Page to Dr. Falcon MESSAGE: [id number] Lynn Ling Patient labs have been drawn, one dose of Zosyn given. Patient tongue looks like she may have thrush. Dana [id number]
[2018-11-15 14:41] LABS: BASOPHILS % (AUTO) 0.4 % (0-1); EOSINOPHILS # (AUTO) 0.2 X10'3 (0-0.9); EOSINOPHILS % (AUTO) 1.6 % (0-6); HEMATOCRIT 26.4 % (35.0-45.0); HEMOGLOBIN 8.6 g/dl (12.0-16.0); LYMPHOCYTES # (AUTO) 2.4 X10'3 (1.1-4.8); LYMPHOCYTES % (AUTO) 23.2 % (21-51); MEAN CORPUSCULAR HEMOGLOBIN 29.7 PG (27.0-31.0); MEAN CORPUSCULAR HGB CONC 32.7 % (33.0-36.5); MEAN CORPUSCULAR VOLUME 90.8 FL (78-98); MEAN PLATELET VOLUME 6.3 FL (7.4-10.4); MONOCYTES # (AUTO) 0.5 X10'3 (0-0.9); MONOCYTES % (AUTO) 5.3 % (2-12); NEUTROPHILS # (AUTO) 7.2 X10'3 (1.8-7.7); NEUTROPHILS % (AUTO) 69.5 % (42-75); PLATELET COUNT 419 X10'3 (140-440); RED CELL DISTRIBUTION WIDTH 21.4 % (11.5-14.5); WHITE BLOOD COUNT 10.3 X10'3 (4.5-11.0)
[2018-11-15 14:56] LABS: ALANINE AMINOTRANSFERASE 10 U/L (12-78); ALBUMIN 1.9 G/DL (3.4-5.0); ALBUMIN/GLOBULIN RATIO 0.6 (1.1-1.5); ALKALINE PHOSPHATASE 94 IU/L (46-116); ANION GAP 15 (8-16); ASPARTATE AMINO TRANSFERASE 13 U/L (10-37); BILIRUBIN,TOTAL 0.4 MG/DL (0.1-1.0); BLOOD UREA NITROGEN 10 MG/DL (7-18); BUN/CREATININE RATIO 12.3 (6.6-38.0); CALCIUM 7.8 MG/DL (8.5-10.1); CHLORIDE 104 MMOL/L (99-107); CREATININE 0.81 MG/DL (0.40-0.90); GLUCOSE 93 MG/DL (70-104); MAGNESIUM 1.6 MG/DL (1.5-2.4); SODIUM 143 MMOL/L (135-145); TOTAL CARBON DIOXIDE 24.1 MMOL/L (24-32); TOTAL PROTEIN 5.1 G/DL (6.4-8.2); eGFR 70 ML/MIN
[2018-11-15 15:01] LABS: POTASSIUM 2.9 MMOL/L (3.5-5.1)
--- NOTE | 2018-11-15 15:12 | NUR ---
Page to Dr. Falcon MESSAGE: [id number] Lynn Ling K at 9.2 [address] [facility]
[2018-11-15 15:15] LABS: ANISOCYTOSIS 3+; HYPOCHROMASIA 1+; PLATELET ESTIMATE NORMAL
--- NOTE | 2018-11-15 15:30 | NUR ---
Page to Dr. Falcon [id number] Lynn Ling Can I get a .5mg morphine order? Dana [phone]
[2018-11-15] MEDS ORDERED: morphine 4 MG/ML inj SYRINge IV PRN (15:35)
[2018-11-15] MEDS: LIDOcaine 1% 30ml vial 5 ML in potassium Cl 40MEQ/NS 500ml 500 ML IV PRN ×2 (17:19→23:37)
--- NOTE | 2018-11-15 18:18 | NUR ---
Problems reprioritized. Patient report given, questions answered & plan of care reviewed with Rose STOREY.
--- NOTE | 2018-11-15 18:30 | NUR ---
Patient in room ORTHO 4009. I have received report from CORDELIA Cortez and had the opportunity to ask questions and assume patient care.
[2018-11-15] MEDS: dextrose 5%-water 1,000 ML IV SCH (20:56)
[2018-11-15] MEDS: nystatin 500,000 unit/5ML UD oral suspension PO SCH (20:58)
[2018-11-15] MEDS: acetaminophen 650mg rectal suppository RC PRN (20:59)
[2018-11-15 21:00] LABS: ABG BASE EXCESS 2.4 mmol/L (-2.0-3.0); ABG HCO3 26.8 mmol/L (22.0-26.0); ABG OXYGEN SATURATION 97.5 % (95-98); ABG PCO2 (T) 41.3 mmHg (32.0-45.0); ABG PH (T) 7.432 (7.350-7.450); ABG PO2 (T) 108.9 mmHg (83-108); ALLEN'S TEST Positive; FCOHb 0.3 % (0.5-1.5); FLOW 2 L/min; FO2Hb 97.2 % (94-100); PATIENT TEMPERATURE 37.5; RESPIRATORY RATE (OBSERVED) 16 b/min; TOTAL HEMOGLOBIN 8.8 G/dl (12.0-16.0)
[2018-11-15] MEDS ORDERED: albumin (Human) 5% 250ml 250 ML IV ONE (21:10)
[2018-11-16] MEDS: dextrose 5%-water 1,000 ML IV SCH ×3 (01:15→22:28)
[2018-11-16] MEDS: ondansetron/PF 4mg/2ml inj IV PRN ×2 (03:05→15:06)
[2018-11-16] MEDS: morphine 4 MG/ML inj SYRINge IV PRN ×3 (04:21→22:22)
[2018-11-16 06:00] VITALS: BP 124/60
--- NOTE | 2018-11-16 06:10 | NUR ---
Problems reprioritized. Patient report given, questions answered & plan of care reviewed with CORDELIA Graff.
--- NOTE | 2018-11-16 06:30 | NUR ---
Patient in room ORTHO 4009. I have received report from Rose STOREY and had the opportunity to ask questions and assume patient care.
[2018-11-16] MEDS: piperacillin/tazo 3.375gm/50ml 50 ML IV SCH ×2 (07:16→15:05)
[2018-11-16] MEDS: nystatin 500,000 unit/5ML UD oral suspension PO SCH ×3 (07:16→20:52)
[2018-11-16] MEDS: aspirin 300mg supp.rect RC SCH (07:16)
[2018-11-16] MEDS: enoxaparin 40mg/0.4ml syringe SUBCUT SCH (07:17)
[2018-11-16] MEDS: nicotine 14mg patch - 24hr TD SCH (07:17)
[2018-11-16] MEDS: metoclopramide 5 mg/ml inj IV PRN ×2 (07:19→22:22)
[2018-11-16] MEDS: pantoprazole 40mg Tablet.DR PO SCH (07:30)
[2018-11-16] MEDS: atorvastatin 20mg tablet PO SCH (08:00)
[2018-11-16] MEDS: gabapentin 400mg capsule PO SCH ×2 (08:00→15:02)
[2018-11-16] MEDS: K and/or MAG REPLACEMENT MC SCH (08:00)
[2018-11-16] MEDS: clopidogrel 75mg tablet PO SCH (08:00)
[2018-11-16] MEDS: docusate sod 100mg capsule PO SCH ×2 (08:00→20:00)
[2018-11-16 10:00] VITALS: BP 136/90
[2018-11-16 10:05] LABS: ALANINE AMINOTRANSFERASE 14 U/L (12-78); ALBUMIN 2.4 G/DL (3.4-5.0); ALBUMIN/GLOBULIN RATIO 0.8 (1.1-1.5); ALKALINE PHOSPHATASE 118 IU/L (46-116); ANION GAP 12 (8-16); ASPARTATE AMINO TRANSFERASE 18 U/L (10-37); BILIRUBIN,TOTAL 0.4 MG/DL (0.1-1.0); BLOOD UREA NITROGEN 9 MG/DL (7-18); BUN/CREATININE RATIO 11.1 (6.6-38.0); CALCIUM 7.9 MG/DL (8.5-10.1); CHLORIDE 105 MMOL/L (99-107); CREATININE 0.81 MG/DL (0.40-0.90); GLUCOSE 85 MG/DL (70-104); MAGNESIUM 1.5 MG/DL (1.5-2.4); POTASSIUM 4.2 MMOL/L (3.5-5.1); SODIUM 142 MMOL/L (135-145); TOTAL CARBON DIOXIDE 25.1 MMOL/L (24-32); TOTAL PROTEIN 5.6 G/DL (6.4-8.2); eGFR 70 ML/MIN
[2018-11-16 10:12] LABS: BASOPHILS % (AUTO) 0.2 % (0-1); EOSINOPHILS # (AUTO) 0.3 X10'3 (0-0.9); EOSINOPHILS % (AUTO) 2.6 % (0-6); HEMOGLOBIN 9.1 g/dl (12.0-16.0); LYMPHOCYTES # (AUTO) 1.8 X10'3 (1.1-4.8); LYMPHOCYTES % (AUTO) 15.7 % (21-51); MEAN CORPUSCULAR HEMOGLOBIN 29.8 PG (27.0-31.0); MEAN CORPUSCULAR HGB CONC 32.5 % (33.0-36.5); MEAN CORPUSCULAR VOLUME 91.7 FL (78-98); MEAN PLATELET VOLUME 7.5 FL (7.4-10.4); MONOCYTES # (AUTO) 0.4 X10'3 (0-0.9); MONOCYTES % (AUTO) 3.2 % (2-12); NEUTROPHILS # (AUTO) 8.8 X10'3 (1.8-7.7); NEUTROPHILS % (AUTO) 78.3 % (42-75); PLATELET COUNT 392 X10'3 (140-440); RED BLOOD COUNT 3.05 X10'6 (4.20-5.60); RED CELL DISTRIBUTION WIDTH 20.8 % (11.5-14.5); WHITE BLOOD COUNT 11.2 X10'3 (4.5-11.0)
[2018-11-16 10:19] LABS: ANISOCYTOSIS 3+; PLATELET ESTIMATE NORMAL
[2018-11-16] MEDS ORDERED: LIDOcaine 2% 10ml TOPICAL JELLY (Urojet) MM PRN (10:45)
--- NOTE | 2018-11-16 13:42 | NUR ---
Reassessment: Pt unable to swallow medications per MD notes, new BSS ordered, PLASMA SPECIALIST rec NPO and to reassess. Unable to perform calorie count at this time. Pt may require nutrition support to meet nutrient needs if unable to swallow. Will continue to follow. 1) Advance to low-residue heart healthy diet with texture modification per PLASMA SPECIALIST 2) Monitor need for ONS with diet advancement 3) Monitor need for nutrition support 4) Wt per rx Addendum: 11/16/18 at [address] Amended: Links added.
[2018-11-16 18:00] VITALS: BP 143/97
--- NOTE | 2018-11-16 18:00 | NUR ---
Patient in room ORTHO 4008. I have received report from CORDELIA Graff and had the opportunity to ask questions and assume patient care.
--- NOTE | 2018-11-16 18:20 | NUR ---
Problems reprioritized. Patient report given, questions answered & plan of care reviewed with Rose STOREY.
[2018-11-16] MEDS: lactobacillus rhamnosus 10,000 MMU CELLS/CAPSULE PO SCH (20:00)
[2018-11-16 22:00] VITALS: BP 124/94
[2018-11-16] MEDS: acetaminophen 650mg rectal suppository RC PRN (22:08)
[2018-11-17] MEDS: piperacillin/tazo 3.375gm/50ml 50 ML IV SCH ×4 (00:03→23:30)
[2018-11-17] MEDS: metoclopramide 5 mg/ml inj IV PRN ×2 (05:19→16:11)
[2018-11-17 06:00] VITALS: BP 139/79
--- NOTE | 2018-11-17 06:31 | NUR ---
Problems reprioritized. Patient report given, questions answered & plan of care reviewed with CORDELIA Graff.
[2018-11-17 06:38] LABS: BASOPHILS % (AUTO) 0.5 % (0-1); EOSINOPHILS # (AUTO) 0.3 X10'3 (0-0.9); EOSINOPHILS % (AUTO) 4.7 % (0-6); HEMATOCRIT 25.9 % (35.0-45.0); HEMOGLOBIN 8.3 g/dl (12.0-16.0); LYMPHOCYTES # (AUTO) 1.9 X10'3 (1.1-4.8); LYMPHOCYTES % (AUTO) 30.1 % (21-51); MEAN CORPUSCULAR HEMOGLOBIN 29.5 PG (27.0-31.0); MEAN CORPUSCULAR HGB CONC 31.9 % (33.0-36.5); MEAN CORPUSCULAR VOLUME 92.3 FL (78-98); MEAN PLATELET VOLUME 7.2 FL (7.4-10.4); MONOCYTES # (AUTO) 0.4 X10'3 (0-0.9); MONOCYTES % (AUTO) 6.5 % (2-12); NEUTROPHILS # (AUTO) 3.8 X10'3 (1.8-7.7); NEUTROPHILS % (AUTO) 58.2 % (42-75); PLATELET COUNT 402 X10'3 (140-440); RED BLOOD COUNT 2.81 X10'6 (4.20-5.60); RED CELL DISTRIBUTION WIDTH 21.8 % (11.5-14.5); WHITE BLOOD COUNT 6.5 X10'3 (4.5-11.0)
[2018-11-17 06:59] LABS: ALANINE AMINOTRANSFERASE 11 U/L (12-78); ALBUMIN 2.1 G/DL (3.4-5.0); ALBUMIN/GLOBULIN RATIO 0.7 (1.1-1.5); ALKALINE PHOSPHATASE 93 IU/L (46-116); ANION GAP 12 (8-16); ASPARTATE AMINO TRANSFERASE 14 U/L (10-37); BILIRUBIN,TOTAL 0.3 MG/DL (0.1-1.0); BLOOD UREA NITROGEN 8 MG/DL (7-18); BUN/CREATININE RATIO 9.8 (6.6-38.0); CALCIUM 8.6 MG/DL (8.5-10.1); CHLORIDE 107 MMOL/L (99-107); CREATININE 0.82 MG/DL (0.40-0.90); GLUCOSE 81 MG/DL (70-104); MAGNESIUM 1.3 MG/DL (1.5-2.4); POTASSIUM 3.7 MMOL/L (3.5-5.1); SODIUM 143 MMOL/L (135-145); TOTAL CARBON DIOXIDE 24.3 MMOL/L (24-32); TOTAL PROTEIN 5.2 G/DL (6.4-8.2); eGFR 69 ML/MIN
[2018-11-17] MEDS: dextrose 5%-water 1,000 ML IV SCH ×2 (07:28→17:15)
[2018-11-17] MEDS: pantoprazole 40mg Tablet.DR PO SCH (07:30)
[2018-11-17] MEDS: nicotine 14mg patch - 24hr TD SCH (07:32)
[2018-11-17] MEDS: aspirin 300mg supp.rect RC SCH (07:32)
[2018-11-17] MEDS: nystatin 500,000 unit/5ML UD oral suspension PO SCH ×3 (07:32→21:07)
[2018-11-17] MEDS: enoxaparin 40mg/0.4ml syringe SUBCUT SCH (07:32)
[2018-11-17] MEDS: gabapentin 400mg capsule PO SCH ×4 (07:42→23:28)
[2018-11-17] MEDS: docusate sod 100mg capsule PO SCH ×2 (07:42→19:32)
[2018-11-17] MEDS: lactobacillus rhamnosus 10,000 MMU CELLS/CAPSULE PO SCH ×2 (07:42→19:33)
[2018-11-17] MEDS: clopidogrel 75mg tablet PO SCH (07:42)
[2018-11-17 07:43] LABS: ANISOCYTOSIS 3+; PLATELET ESTIMATE NORMAL
[2018-11-17 07:44] LABS: TARGET CELLS FEW
[2018-11-17 07:45] LABS: POLYCHROMASIA 1+
[2018-11-17] MEDS: K and/or MAG REPLACEMENT MC SCH (08:00)
[2018-11-17] MEDS ORDERED: potassium Cl 20 mEq SR tablet PO PRN ×2 (09:15)
[2018-11-17] MEDS ORDERED: potassium Cl 40MEQ/NS 500ml 500 ML IV PRN ×2 (09:15)
[2018-11-17] MEDS ORDERED: magnesium 4gm in 100ml NS 100 ML IV PRN (09:55)
[2018-11-17 09:57] VITALS: BP 148/88
[2018-11-17] MEDS: morphine 4 MG/ML inj SYRINge IV PRN ×3 (12:30→22:03)
[2018-11-17] MEDS ORDERED: acetaminophen 650mg rectal suppository RC PRN (14:25)
[2018-11-17 18:00] VITALS: BP 146/82
--- NOTE | 2018-11-17 18:20 | NUR ---
Problems reprioritized. Patient report given, questions answered & plan of care reviewed with Nona STOREY.
--- NOTE | 2018-11-17 18:30 | NUR ---
Patient in room ORTHO 4008. I have received report from Prerna STOREY and had the opportunity to ask questions and assume patient care.
[2018-11-18] MEDS: dextrose 5%-water 1,000 ML IV SCH ×2 (03:15→13:02)
[2018-11-18] MEDS: morphine 4 MG/ML inj SYRINge IV PRN ×2 (05:52→19:40)
[2018-11-18 06:00] VITALS: BP 125/81
--- NOTE | 2018-11-18 06:10 | NUR ---
Patient in room ORTHO 4008. I have received report from [facility] and had the opportunity to ask questions and assume patient care.
--- NOTE | 2018-11-18 06:43 | NUR ---
Problems reprioritized. Patient report given, questions answered & plan of care reviewed with Sun STOREY.
[2018-11-18] MEDS: pantoprazole 40mg Tablet.DR PO SCH (07:30)
[2018-11-18] MEDS: docusate sod 100mg capsule PO SCH ×2 (08:00→20:00)
[2018-11-18] MEDS: gabapentin 400mg capsule PO SCH ×2 (08:00→16:00)
[2018-11-18] MEDS: lactobacillus rhamnosus 10,000 MMU CELLS/CAPSULE PO SCH ×2 (08:00→20:00)
[2018-11-18] MEDS: K and/or MAG REPLACEMENT MC SCH (08:00)
[2018-11-18] MEDS: aspirin 300mg supp.rect RC SCH (08:00)
[2018-11-18] MEDS: clopidogrel 75mg tablet PO SCH (08:00)
[2018-11-18] MEDS: nystatin 500,000 unit/5ML UD oral suspension PO SCH ×3 (08:00→21:00)
[2018-11-18 08:12] LABS: POTASSIUM 3.2 MMOL/L (3.5-5.1)
[2018-11-18 10:00] VITALS: BP 166/88
[2018-11-18] MEDS: piperacillin/tazo 3.375gm/50ml 50 ML IV SCH ×2 (11:28→18:02)
[2018-11-18] MEDS: nicotine 14mg patch - 24hr TD SCH (12:55)
[2018-11-18] MEDS: ondansetron/PF 4mg/2ml inj IV PRN (14:40)
[2018-11-18] MEDS ORDERED: morphine 10mg/0.5ml (conc. morphine) oral syringe PO PRN (15:20)
[2018-11-18] MEDS ORDERED: morphine 10mg/ml inj. IV PRN (15:20)
--- NOTE | 2018-11-18 18:25 | NUR ---
Problems reprioritized. Patient report given, questions answered & plan of care reviewed with CORDELIA Mathis.
--- NOTE | 2018-11-18 18:34 | NUR ---
Received report from Sun STOREY pt is awake on RA, dante running
[2018-11-18] MEDS ORDERED: LORazepam 2 mg/ml vial IV PRN (20:35)
--- NOTE | 2018-11-18 20:35 | NUR ---
Dr. Johnson gave order for ativan for pt's comfort since she is on comfort care plan,
[2018-11-18 22:30] VITALS: BP 118/75
[2018-11-19] MEDS: gabapentin 400mg capsule PO SCH
[2018-11-19] MEDS: piperacillin/tazo 3.375gm/50ml 50 ML IV SCH ×3 (00:37→16:25)
[2018-11-19] MEDS: morphine 4 MG/ML inj SYRINge IV PRN (02:24)
[2018-11-19] MEDS: dextrose 5%-water 1,000 ML IV SCH (04:36)
[2018-11-19 06:00] VITALS: BP 130/71
--- NOTE | 2018-11-19 06:34 | NUR ---
Problems reprioritized. Patient report given, questions answered & plan of care reviewed with Evie STOREY.
[2018-11-19] MEDS: docusate sod 100mg capsule PO SCH ×2 (08:00→20:00)
[2018-11-19 10:00] VITALS: BP 158/82
--- NOTE | 2018-11-19 13:42 | NUR ---
Pt has been made DNR w/ comfort care. [facility] 11/18. Will follow per protocol. Addendum: 11/19/18 at [address] Amended: Links added.
[2018-11-19] MEDS: morphine 10mg/ml inj. IV PRN ×2 (14:36→22:49)
[2018-11-19] MEDS: LORazepam 2 mg/ml vial IV PRN (16:37)
--- NOTE | 2018-11-19 18:52 | NUR ---
Problems reprioritized. Patient report given, questions answered & plan of care reviewed with CORDELIA Baird.
[2018-11-19 22:00] VITALS: BP 124/72
[2018-11-20] MEDS: piperacillin/tazo 3.375gm/50ml 50 ML IV SCH ×4 (00:11→23:26)
--- NOTE | 2018-11-20 06:26 | NUR ---
Problems reprioritized. Patient report given, questions answered & plan of care reviewed with Karla STOREY.
[2018-11-20] MEDS: docusate sod 100mg capsule PO SCH ×2 (08:00→19:02)
[2018-11-20 11:15] VITALS: BP 114/79
--- NOTE | 2018-11-20 13:30 | NUR ---
HERE TO VISIT. CONDITION REPORT GIVEN.
--- NOTE | 2018-11-20 13:40 | NUR ---
PATIENT BECOMING INCREASINGLY ANXIOUS WITH MULTIPLE COMPLAINTS SINCE ARRIVED. MOUTH SWABS GIVEN FOR C/O THIRST.
[2018-11-20] MEDS: morphine 10mg/ml inj. IV PRN ×2 (13:44→21:51)
--- NOTE | 2018-11-20 14:25 | NUR ---
MEDICATED WITH MORPHINE AT 1344. PATIENT CONTINUES TO YELL FOR "HELP" CONTINUALLY, DESPITE THE FACT THAT HER IS SITTING IN THE CHAIR AT THE BEDSIDE.
[2018-11-20] MEDS: LORazepam 2 mg/ml vial IV PRN ×2 (16:25→23:26)
--- NOTE | 2018-11-20 18:20 | NUR ---
Received report from Karla STOREY, assumed care of patient.
--- NOTE | 2018-11-20 18:28 | NUR ---
Problems reprioritized. Patient report given, questions answered & plan of care reviewed with CORDELIA CRUZ.
[2018-11-20] MEDS: ondansetron/PF 4mg/2ml inj IV PRN (21:55)
[2018-11-20 22:00] VITALS: BP 136/73
[2018-11-21] MEDS: morphine 10mg/ml inj. IV PRN ×2 (02:02→08:43)
[2018-11-21] MEDS: docusate sod 100mg capsule PO SCH ×2 (08:00→19:19)
[2018-11-21] MEDS: piperacillin/tazo 3.375gm/50ml 50 ML IV SCH ×2 (08:25→16:11)
[2018-11-21] MEDS: LORazepam 2 mg/ml vial IV PRN ×2 (10:39→16:10)
[2018-11-21] MEDS: morphine 2 MG/ML inj. syringe IV PRN ×2 (12:46→16:10)
--- NOTE | 2018-11-21 14:00 | NUR ---
Observed attempting to feed patient. Explained that she is NPO because of her inability to swallow without food going into her lungs. He apologized and stated that had not been explained before.
[2018-11-21] MEDS: morphine 4 MG/ML inj SYRINge IV PRN ×2 (20:52→23:37)
[2018-11-21 22:00] VITALS: BP 146/86
[2018-11-22] MEDS: piperacillin/tazo 3.375gm/50ml 50 ML IV SCH ×3 (00:28→16:39)
[2018-11-22] MEDS: LORazepam 2 mg/ml vial IV PRN ×5 (00:31→23:34)
[2018-11-22 02:00] VITALS: BP 105/65
[2018-11-22] MEDS: morphine 4 MG/ML inj SYRINge IV PRN ×4 (07:58→22:43)
[2018-11-22] MEDS: docusate sod 100mg capsule PO SCH (08:49)
[2018-11-22 10:00] VITALS: BP 125/81
--- NOTE | 2018-11-22 18:26 | NUR ---
Patient in room ORTHO 4008. I have received report from Sarah STOREY and had the opportunity to ask questions and assume patient care.
[2018-11-23] MEDS: piperacillin/tazo 3.375gm/50ml 50 ML IV SCH ×2 (00:27→10:36)
[2018-11-23] MEDS: morphine 4 MG/ML inj SYRINge IV PRN ×2 (03:06→11:12)
[2018-11-23] MEDS: LORazepam 2 mg/ml vial IV PRN (04:55)
--- NOTE | 2018-11-23 06:00 | NUR ---
Patient in room ORTHO 4008. I have received report from CORDELIA Castellano and had the opportunity to ask questions and assume patient care.
--- NOTE | 2018-11-23 06:23 | NUR ---
Problems reprioritized. Patient report given, questions answered & plan of care reviewed with Sarah STOREY.
[2018-11-23] MEDS: docusate sod 100mg capsule PO SCH (08:00)
--- NOTE | 2018-11-23 13:10 | NUR ---
Received discharge orders from Dr. Garcia. Pt is on comfort care/DNR. Pt is going to be discharged to home with assistance from Matt (). Matt arrived and is in pts room. IV Right Forearm discontinued with cannula intact. No redness/swelling at insertion site. Printed discharge paperwork and reviewed with pts who signed forms. Retrieved rings from the safe. Signed release form. With help from GERALD Farrell & Alesha, PT, were able to assist pt from bed using slide sheet to w/c for transport out to private vehicle. Matt reports he has 02 out in the vehicle for pt to use. Attempted to call Gunjan at [facility] @ [phone] to give report. No answer. Left message.
== END 2018-11-23 13:15 | disposition hospice, home (50) | DRG 64 ==
LOC: ER 12:35 → ED HOLD 20:39 → ORTHO 4S 11-13 07:50
PROVIDERS: ADMIT Family Medicine; ATTEND Internal Medicine
DX: I63.9 Cerebral infarction, unspecified (principal); E43 Unspecified severe protein-calorie malnutrition; J69.0 Pneumonitis due to inhalation of food and vomit; J96.01 Acute respiratory failure with hypoxia; G93.40 Encephalopathy, unspecified; E87.2 Acidosis; Z68.1 Body mass index [BMI] 19.9 or less, adult; J44.1 Chronic obstructive pulmonary disease with (acute) exacerbation; K14.8 Other diseases of tongue; R13.12 Dysphagia, oropharyngeal phase; S70.00XA Contusion of unspecified hip, initial encounter; F17.200 Nicotine dependence, unspecified, uncomplicated; M25.552 Pain in left hip; W18.39XA Other fall on same level, initial encounter; F31.9 Bipolar disorder, unspecified; G89.29 Other chronic pain; M54.9 Dorsalgia, unspecified; I11.0 Hypertensive heart disease with heart failure; I50.9 Heart failure, unspecified; E86.1 Hypovolemia; E87.6 Hypokalemia; E86.0 Dehydration; Z51.5 Encounter for palliative care; Z66 Do not resuscitate; Z90.49 Acquired absence of other specified parts of digestive tract; Z88.8 Allergy status to other drugs, medicaments and biological substances; Z79.899 Other long term (current) drug therapy; Z87.11 Personal history of peptic ulcer disease; Y93.89 Activity, other specified; Y92.89 Other specified places as the place of occurrence of the external cause; Y99.8 Other external cause status; Z71.6 Tobacco abuse counseling
CPT/HCPCS: 36415; 36600; 70450; 70544; 70547; 70551; 71045; 73502; 73552; 80053; 80061; 80305; 81001; 82803; 83036; 83605; 83735; 83880; 84100; 84132; 84484; 85018; 85025; 85610; 85651; 85730; 86592; 87040; 87070; 92616; 93005; 93308; 94640; 94760; 96365; 96375; 96376; 97110; 97116; 97162; 97530; 99285; C9113; G0378; J1650; J1953; J2060; J2270; J2405; J2543; J2765; J3475; J3480; J3490; J7030; J7070; P9045; Q9967